=== PATIENT | female | born 1940 | race Caucasian/White ===

== ENCOUNTER 2016-07-03 11:49 | Emergency (ER) | payer OTHER, MEDICAID ==
[~2016-07-03] VITALS: Wt 51.7 kg
[~2016-07-03 11:49] MED LIST: 'zithromax250 MG PO; ACYCLOVIR800 MG PO; ALENDRONATE SOD70 MG PO; AMBIEN5 MG; AMLODIPINE10 MG PO; AMOXICILLIN500 MG; ASPIR LOW81 MG PO; ASPIRIN81 M1 PO; ATROVENT IH; CALCITRIOL0.25 MCG PO; CALCIUM ACETAT667 MG PO; CARAFATE1 G1 PO; CARDIZEM CD240 MG PO; CARDIZEM LA240 MG PO; CARDIZEM120 MG PO; CIPRO250 MG PO; CIPROFLOXACIN250 MG PO; CITALOPRAM HYDR20 MG PO; CYMBALTA30 M1 PO; CYMBALTA30 MG PO; Carafate1 GM PO; Coumadin3 MG PO; DELTASONE20 MG PO; DILTIA XT180 MG PO; DILTIAZEM CD180 MG PO; DILTIAZEM CD240 MG PO; DILTIAZEM HCL180 MG PO; DIOVAN160 MG PO; DUONEB 3 MG/3 ML3 M1 NEB; DURAMORPH1 MG/ML PO; ELIQUIS2.5 M1 PO; FLUTICASON0.05 MG/AC NAS; HYDROCODONE BIT1 T11 PO; IMDUR SA60 M1 PO; IMODIUM2 MG PO; LEVOTHYROXIN0.075 MG PO; LIPITOR; LISINOPRIL10 MG PO; LISINOPRIL30 MG PO; LOPRESSOR25 MG PO; LOPRESSOR50 MG PO; METOPROLOL SUCC25 M2 PO; METOPROLOL25 MG PO; MICRO K10 MEQ PO; MORPHINE PO; MORPHINE S20 MG/5 ML PO; MS CONTIN30 MG PO; MUCINEX600 MG PO; NASONEX0.05 MG/AC NAS; NEPHRO-VITE RX1 TAB PO; NEPHRO-VITE VIT1 TAB PO; NEPHROCAPS1 SGL PO; NORVASC10 MG PO; PHOS LO667 MG PO; PHOSLO667 M1 PO; PRAVACHOL40 MG; PRAVACHOL40 MG PO; PREDNICOT20 MG PO; PREDNISONE10 MG PO; PREDNISONE5 MG PO; PROTONIX40 MG PO; SENSIPAR30 MG PO; SENSIPAR60 MG PO; SODIUM BICARBO650 MG PO; SYNTHROID,LEVO75 MCG PO; TOPROL XL25 MG PO; TOPROL XL50 M1 PO; TUMS 500500 MG PO; TUMS ULTRA1000 MG PO; VALTREX1 GM PO; VANCOMYCIN; VENTOLIN 02.5 MG/3 M INH; VICODIN 5/500 505 MG PO; VICODIN PO; VICODIN1 TAB PO; VITAMIN D2; VITAMIN D5000 IU PO; VITAMIN D50000 I2 PO; VITAMIN D50000 I3 PO; XANAX0.25 MG; ZOFRAN4 MG PO; ZOSYN 2/0.252.25 GM IV; Zofran4 MG PO
[2016-07-03 12:26] LABS: BASO % 0.7 % (0.0-1.0); EOS # 0.1 10*3/uL (0.0-0.4); EOS % 3.1 % (1.0-4.0); HEMATOCRIT 30.3 % (37.0-47.0); LYMPH # 0.9 10*3/uL (1.3-4.4); MEAN CELL VOLUME 103.1 fl (81.0-99.0); MEAN PLATELET VOLUME 10.9 fl (9.6-12.3); MONO # 0.4 10*3/uL (0.1-1.0); MONO % 9.5 % (3.0-9.0); NEUT # 2.7 10*3/uL (2.3-7.9); NEUT % 64.5 % (47.0-73.0); PLATELET COUNT AUTOMATED 188 10*3/uL (130-400); RED BLOOD COUNT 2.94 10*6/uL (4.10-5.10); WHITE BLOOD COUNT 4.2 10*3/uL (4.8-10.8)
[2016-07-03 12:41] LABS: PROTHROMBIN TIME 10.3 SECONDS (9.0-12.4)
[2016-07-03 12:52] LABS: MAGNESIUM 1.8 mg/dL (1.5-2.1); THYROID STIM HORMONE (HS) 2.66 uIU/ml (0.358-4.75)
[2016-07-03 13:24] VITALS: BP 149/66
[2016-08-18] MEDS ORDERED: [UNRECOGNIZED DRUG - OTHER] PO (15:37)
[2016-08-18] MEDS ORDERED: ZESTRIL,PRINIVIL5 MG PO (15:38)
[2016-08-18] MEDS ORDERED: IMDUR SA30 MG PO (15:40)
[2016-08-18] MEDS ORDERED: ELIQUIS2.5 M1 PO (15:42)
[2016-08-18] MEDS ORDERED: METOPROLOL SUCC25 M2 PO (15:44)
[2016-08-22] MEDS ORDERED: IMDUR SA30 MG PO (13:03)
[2016-08-22] MEDS ORDERED: ASPIR LOW81 MG PO (15:03)
== END 2016-07-03 14:21 | disposition short-term general hospital (02) ==
LOC: ED 11:49
PROVIDERS: Emergency Medicine
DX: I20.0 Unstable angina (principal); I95.3 Hypotension of hemodialysis; J44.9 Chronic obstructive pulmonary disease, unspecified; I25.2 Old myocardial infarction; D64.9 Anemia, unspecified; E03.9 Hypothyroidism, unspecified; I48.0 Paroxysmal atrial fibrillation; I12.0 Hypertensive chronic kidney disease with stage 5 chronic kidney disease or end stage renal disease; N18.6 End stage renal disease; Z88.0 Allergy status to penicillin; Z88.8 Allergy status to other drugs, medicaments and biological substances; Z88.6 Allergy status to analgesic agent; Z79.899 Other long term (current) drug therapy

== ENCOUNTER 2016-10-02 22:22 | Inpatient (IN) | payer OTHER, MEDICAID ==
[~2016-10-02] VITALS: Ht 137.2 cm; Wt 53.3 kg
[~2016-10-02 22:22] MED LIST changes: +IMDUR SA30 MG PO; +ZESTRIL,PRINIVIL5 MG PO; +[UNRECOGNIZED DRUG - OTHER] PO
[2016-10-02 22:27] VITALS: BP 166/70
[2016-10-02 23:09] LABS: BASO % 0.6 % (0.0-1.0); EOS # 0.3 10*3/uL (0.0-0.4); EOS % 4.5 % (1.0-4.0); HEMOGLOBIN 7.5 g/dl (12.0-16.0); LYMPH % 14.5 % (27.0-41.0); MEAN CORPUSCULAR HGB 32.2 pg (27.0-31.0); MEAN CORPUSCULAR HGB CONC 31.3 g/dl (33.0-37.0); MEAN PLATELET VOLUME 10.3 fl (9.6-12.3); MONO # 0.7 10*3/uL (0.1-1.0); MONO % 10.6 % (3.0-9.0); NEUT # 4.7 10*3/uL (2.3-7.9); NEUT % 69.5 % (47.0-73.0); PLATELET COUNT AUTOMATED 207 10*3/uL (130-400); RED BLOOD COUNT 2.33 10*6/uL (4.10-5.10); WHITE BLOOD COUNT 6.7 10*3/uL (4.8-10.8)
[2016-10-02 23:15] VITALS: BP 132/76
[2016-10-02 23:20] LABS: PROTHROMBIN TIME 10.2 SECONDS (9.0-12.4)
[2016-10-02 23:25] LABS: ALBUMIN 3.4 gm/dl (3.1-4.5); BILIRUBIN, TOTAL 0.3 mg/dl (0.2-1.0); MAGNESIUM 1.9 mg/dL (1.5-2.1); POTASSIUM 3.7 mmol/L (3.5-5.1); TOTAL PROTEIN 6.8 gm/dL (6.4-8.2)
[2016-10-02 23:26] LABS: CKMB 3.5 ng/ml (0.5-3.6); TROPONIN I 0.035 ng/ml (<0.045)
[2016-10-03 00:24] VITALS: BP 140/88
[2016-10-03 01:30] VITALS: BP 113/45; BP 114/55
[2016-10-03 07:34] LABS: BASO % 0.6 % (0.0-1.0); EOS # 0.2 10*3/uL (0.0-0.4); EOS % 4.7 % (1.0-4.0); HEMATOCRIT 22.3 % (37.0-47.0); LYMPH # 1.5 10*3/uL (1.3-4.4); LYMPH % 29.9 % (27.0-41.0); MEAN CELL VOLUME 102.3 fl (81.0-99.0); MEAN CORPUSCULAR HGB 32.1 pg (27.0-31.0); MEAN CORPUSCULAR HGB CONC 31.4 g/dl (33.0-37.0); MEAN PLATELET VOLUME 10.9 fl (9.6-12.3); MONO # 0.5 10*3/uL (0.1-1.0); MONO % 10.5 % (3.0-9.0); NEUT # 2.6 10*3/uL (2.3-7.9); NEUT % 54.1 % (47.0-73.0); PLATELET COUNT AUTOMATED 198 10*3/uL (130-400); RED BLOOD COUNT 2.18 10*6/uL (4.10-5.10); WHITE BLOOD COUNT 4.9 10*3/uL (4.8-10.8)
[2016-10-03 07:46] LABS: CKMB 3.3 ng/ml (0.5-3.6); TROPONIN I 0.039 ng/ml (<0.045)
[2016-10-03 08:00] VITALS: BP 133/49
[2016-10-03 08:00] LABS: ALBUMIN 3.1 gm/dl (3.1-4.5); BILIRUBIN, TOTAL 0.4 mg/dl (0.2-1.0); PHOSPHOROUS 3.8 mg/dL (2.5-4.9); POTASSIUM 3.9 mmol/L (3.5-5.1)
[2016-10-03 08:06] LABS: FREE T4 1.05 ng/dl (0.76-1.46); THYROID STIM HORMONE (HS) 2.75 uIU/ml (0.358-4.75)
[2016-10-03 08:11] LABS: PROTHROMBIN TIME 10.5 SECONDS (9.0-12.4)
[2016-10-03 11:46] VITALS: BP 122/54
[2016-10-03 12:00] VITALS: BP 127/42
[2016-10-03 12:27] LABS: CKMB 3.5 ng/ml (0.5-3.6); TROPONIN I 0.03 ng/ml (<0.045)
[2016-10-03] MEDS ORDERED: LISINOPRIL2.5 MG PO (13:16)
== END 2016-10-03 15:05 | disposition home or self-care (01) | DRG 880 ==
LOC: ED 22:22 → EDHOLD 23:54 → 5E 23:54
PROVIDERS: Family Medicine; Hospitalist
DX: F41.9 Anxiety disorder, unspecified (principal); E43 Unspecified severe protein-calorie malnutrition; I12.0 Hypertensive chronic kidney disease with stage 5 chronic kidney disease or end stage renal disease; I48.0 Paroxysmal atrial fibrillation; J44.9 Chronic obstructive pulmonary disease, unspecified; N18.6 End stage renal disease; D62 Acute posthemorrhagic anemia; D63.8 Anemia in other chronic diseases classified elsewhere; I25.2 Old myocardial infarction; F17.200 Nicotine dependence, unspecified, uncomplicated; Z82.49 Family history of ischemic heart disease and other diseases of the circulatory system; Z88.8 Allergy status to other drugs, medicaments and biological substances; Z95.5 Presence of coronary angioplasty implant and graft; Z88.0 Allergy status to penicillin; Z88.6 Allergy status to analgesic agent; Z91.048 Other nonmedicinal substance allergy status; Z99.2 Dependence on renal dialysis; Z79.82 Long term (current) use of aspirin; Z79.899 Other long term (current) drug therapy; Z79.01 Long term (current) use of anticoagulants; Z68.28 Body mass index [BMI] 28.0-28.9, adult

== ENCOUNTER 2016-10-11 00:29 | Inpatient (IN) | payer OTHER, MEDICAID ==
[2016-10-11] VITALS (10 sets, daily range): BP systolic 113–179; BP diastolic 41–80
[~2016-10-11] VITALS: Ht 142.2 cm; Wt 54.4 kg
--- NOTE | ~2016-10-11 | EKG ---
[place], [place] ELECTROCARDIOGRAM REPORT [id number] UN[facility] #: [id number] ROOM: 408 DOCTOR: MADAN SHABAZZ MD BIRTHDATE: [birth year] DOS: 10/11/2016 STUDY DONE: 10/11/2016 at 0055 in the morning. Sinus rhythm at a rate of 81. Normal EKG. MADAN SHABAZZ MD CM:EKGRPT:ELECTROCARDIOGRAM REPORT 1101 [id number] MADAN SHABAZZ MD
--- NOTE | ~2016-10-11 | EKG ---
[place], [place] ELECTROCARDIOGRAM REPORT [id number] UN[facility] #: [id number] ROOM: 408 DOCTOR: MADAN SHABAZZ MD BIRTHDATE: [birth year] DOS: 10/11/2016 TIME: 07:20 a.m. FINDINGS: 1. Sinus rhythm with rate of 77. 2. Mild first degree AV block. 3. Otherwise normal electrocardiogram. MADAN SHABAZZ MD CM:EKGRPT:ELECTROCARDIOGRAM REPORT [id number] MADAN SHABAZZ MD
--- NOTE | ~2016-10-11 | CON ---
[place], [place] REPORT OF CONSULTATION NAME: STEWART VELARDE [facility] #: [id number] UNIT #: [id number] ROOM: 408 DOCTOR: MADAN SHABAZZ MD BIRTHDATE: [birth year] DOS: 10/11/2016 CARDIOLOGY CONSULTATION REASON FOR CONSULTATION: Hypertensive emergency and elevated troponin level. HISTORY OF PRESENT ILLNESS: The patient is a 76-year-old woman who does have a history of polycystic kidney disease, which resulted in end-stage renal failure. She has been on dialysis for 6 years. She also has a history of coronary artery disease and states that she did have catheterization and stenting in [place] over 10 years ago. Those records are not currently available to us. The patient states that she has had a cardiac catheterization at the [facility] in the last year or so. She was told that she had no more than a 50% blockage and that no revascularization was necessary. The last stress test that I have on record was done on August 19, 2013, and showed normal left ventricular size, wall motion and function with ejection fraction of 72%. Perfusion was normal. The study was felt to be low risk. The patient dialyzes 3 days a week on Tuesdays, and Saturdays. She states that for the last week, she has noticed increased swelling in her feet, especially on the right. She had dialysis 2 days ago and her swelling improved, but was still present. Yesterday, she noticed a pressure sensation in her head and could hear her heartbeat in her ears. Family members checked her blood pressure and found that it was over 200 systolic. She was brought to the Emergency Room where her blood pressure was over 220. She was therefore admitted to the hospital. Her initial troponin level was elevated at 0.069 and Cardiology was asked to help explain the elevation in her troponin. I have reviewed her previous troponin measurements and utilizing the same assay at [facility], her troponin levels have been elevated intermittently for at least 9 years. Last year, her troponin level was over 0.13. The patient denies any chest pain. She denies lightheadedness or syncope. She denies any increased dyspnea. She does have peripheral edema as noted above. PAST HISTORY: Includes, 1. Coronary artery disease. The patient reports that she had a myocardial infarction many years ago and was treated in [place] with angioplasty and stenting, details of that portion of her history are not currently available. 2. Polycystic kidney disease. 3. End-stage renal disease on dialysis via a right forearm AV fistula for the last 6 years. 4. Hypertension. 5. Degenerative joint disease. 6. Paroxysmal atrial fibrillation. 7. History of depression. 8. History of hysterectomy, cholecystectomy, and appendectomy. 9. History of hypothyroidism. 10. Pharmacologic myocardial perfusion study on August 19, 2013, showed an [place], [place] REPORT OF CONSULTATION NAME: STEWART VELARDE UNIT #: [id number] ROOM: [facility] DOCTOR: MADAN SHABAZZ MD BIRTHDATE: [birth year] ejection fraction of 72% with no evidence for ischemia, study was felt to be low risk. 11. Echocardiogram on June 07, showed an ejection fraction of 55% with stage 2 diastolic relaxation abnormalities. There were no wall motion abnormalities seen. She did have mild to moderate mitral insufficiency with moderately elevated right ventricular systolic pressures between 55 and 60 mmHg. MEDICATIONS PRIOR TO ADMISSION: Aspirin 81 mg daily, calcium acetate 667 mg b.i.d., Sensipar 30 mg daily, isosorbide mononitrate 30 mg one-half tablet daily, levothyroxine 75 mcg daily, lisinopril 5 mg daily, metoprolol succinate 25 mg twice a day, pravastatin 40 mg at bedtime and vitamin B complex (Nephro-Nataliya) 1 daily. ALLERGIES: The patient lists allergies to IRON, PENICILLIN, TAPE, BENZOCAINE MEPERIDINE, MORPHINE AND NALBUPHINE. FAMILY HISTORY: Negative for early coronary disease. REVIEW OF SYSTEMS: The patient denies diplopia or loss of vision. She denies lightheadedness or syncope. She denies orthopnea or PND. She has not had any fevers, chills, sweats or recent weight change. She has had swelling of her lower extremities for the last week, especially on the right. She denies any focal weakness, but is generally weak. She denies any new skin rashes. She has chronic dyspnea, which has not changed much lately. She denies any recent bleeding or blood in her urine or stools. She denies any new skin rashes. Remainder of the review of systems is negative except as noted above. SOCIAL HISTORY: The patient lives at home with family. She is a . She does not smoke, but lives with smokers. PHYSICAL EXAMINATION: GENERAL: The patient is a slender white female who is awake, alert and oriented. VITAL SIGNS: Pulse is 72 and regular, blood pressure is 138/60. She is afebrile. She weighs 54.0 kilograms with a body mass index of 26.7. HEENT: Normocephalic, atraumatic. Extraocular muscles are intact. Sclerae are clear. Pupils are equal, round and react to light. The oral mucosa is moist. Tongue is midline. NECK: Supple. She has no jugular distention. Carotids are full and I heard no bruits. She had no neck or supraclavicular masses and no thyromegaly. LUNGS: Respirations are unlabored. Her chest is clear to auscultation and percussion. She has no presacral edema or chest wall tenderness. HEART: Has a regular rhythm. She has a fourth heart sound, but no third heart sound. There were no murmurs or rubs. The PMI was not displaced. She had no precordial heave, lift or thrill. ABDOMEN: Soft and normally active without masses, organomegaly or bruits. EXTREMITIES: Showed no edema on the left. She does have mild swelling on the right leg. LABORATORY DATA: I reviewed her electrocardiogram, which showed sinus rhythm [place], [place] REPORT OF CONSULTATION [id number] UNIT #: [id number] ROOM: 408 DOCTOR: MDAAN SHABAZZ MD BIRTHDATE: [address] or T-wave changes and is essentially a normal electrocardiogram. Chest x-ray shows cardiomegaly and obstructive lung disease. IMPRESSIONS: 1. Acute elevation of chronic hypertension with symptoms. The patient's symptoms have resolved and her blood pressure has improved since admission. The etiology for the change is not clear; however, she does note that she has been holding more water lately. 2. Paroxysmal atrial fibrillation with rapid ventricular response. The patient currently is in sinus rhythm. 3. History of coronary artery disease with previous myocardial infarction and stenting per the patient's history. The patient states that her last catheterization was done at the [facility] about a year ago and at that time, no percutaneous intervention was indicated. 4. Polycystic kidney disease. 5. End-stage renal disease, on dialysis for the last 6 years. 6. History of asthma and obstructive lung disease. 7. History of hypothyroidism, on replacement. 8. History of recurrent gastrointestinal bleeding. PLAN: We will increase her beta surinder and continue her other antihypertensives in order to try to prevent another episode of blood pressure elevation. The patient is not on anticoagulation for her atrial fibrillation because she does have end-stage renal disease, on dialysis. It is unusual for patients in this population to have cardioembolic phenomenon. We will request the results of her most recent catheterization for our local records here. For now, I would continue to follow her clinically. I do not think that any other advanced cardiac evaluation would change our management of her. I thank the hospitalist group for asking our advice regarding her care. MADAN SHABAZZ MD CM:CONSTR:REPORT OF CONSULTATION 1104 10/11/162048 interface
[~2016-10-11 00:29] MED LIST changes: +LISINOPRIL2.5 MG PO
[2016-10-11] MEDS ORDERED: LISINOPRIL5 MG PO (00:36)
[2016-10-11 00:53] LABS: BASO % 0.4 % (0.0-1.0); EOS # 0.3 10*3/uL (0.0-0.4); EOS % 4.1 % (1.0-4.0); HEMATOCRIT 26.8 % (37.0-47.0); HEMOGLOBIN 8.3 g/dl (12.0-16.0); LYMPH # 1.2 10*3/uL (1.3-4.4); LYMPH % 17.6 % (27.0-41.0); MEAN CELL VOLUME 104.7 fl (81.0-99.0); MEAN CORPUSCULAR HGB 32.4 pg (27.0-31.0); MEAN PLATELET VOLUME 10.7 fl (9.6-12.3); MONO # 0.7 10*3/uL (0.1-1.0); MONO % 10.3 % (3.0-9.0); NEUT # 4.6 10*3/uL (2.3-7.9); NEUT % 67.3 % (47.0-73.0); PLATELET COUNT AUTOMATED 240 10*3/uL (130-400); RED BLOOD COUNT 2.56 10*6/uL (4.10-5.10); RED CELL DISTRI WIDTH 16.5 % (0-14.5); WHITE BLOOD COUNT 6.8 10*3/uL (4.8-10.8)
[2016-10-11 01:03] LABS: PROTHROMBIN TIME 10.5 SECONDS (9.0-12.4)
[2016-10-11 01:10] LABS: ALBUMIN 3.6 gm/dl (3.1-4.5); BILIRUBIN, TOTAL 0.3 mg/dl (0.2-1.0); MAGNESIUM 2.2 mg/dL (1.5-2.1); POTASSIUM 4.1 mmol/L (3.5-5.1)
[2016-10-11 01:12] LABS: TROPONIN I 0.048 ng/ml (<0.045)
[2016-10-11 01:17] LABS: THYROID STIM HORMONE (HS) 2.16 uIU/ml (0.358-4.75)
[2016-10-11 06:01] LABS: BASO % 0.3 % (0.0-1.0); EOS # 0.3 10*3/uL (0.0-0.4); EOS % 5.3 % (1.0-4.0); HEMATOCRIT 24.4 % (37.0-47.0); HEMOGLOBIN 7.4 g/dl (12.0-16.0); LYMPH # 1.5 10*3/uL (1.3-4.4); LYMPH % 24.5 % (27.0-41.0); MEAN CELL VOLUME 106.6 fl (81.0-99.0); MEAN CORPUSCULAR HGB 32.3 pg (27.0-31.0); MEAN CORPUSCULAR HGB CONC 30.3 g/dl (33.0-37.0); MEAN PLATELET VOLUME 10.6 fl (9.6-12.3); MONO # 0.7 10*3/uL (0.1-1.0); MONO % 11.5 % (3.0-9.0); NEUT # 3.5 10*3/uL (2.3-7.9); NEUT % 58.2 % (47.0-73.0); PLATELET COUNT AUTOMATED 224 10*3/uL (130-400); RED BLOOD COUNT 2.29 10*6/uL (4.10-5.10); RED CELL DISTRI WIDTH 16.3 % (0-14.5)
[2016-10-11 06:09] LABS: ALBUMIN 3.3 gm/dl (3.1-4.5); BILIRUBIN, TOTAL 0.3 mg/dl (0.2-1.0); MAGNESIUM 2.2 mg/dL (1.5-2.1); POTASSIUM 3.9 mmol/L (3.5-5.1)
[2016-10-11 06:16] LABS: CKMB 3.9 ng/ml (0.5-3.6); THYROID STIM HORMONE (HS) 1.4 uIU/ml (0.358-4.75)
[2016-10-11 06:17] LABS: TROPONIN I 0.069 ng/ml (<0.045)
[2016-10-11 06:32] LABS: PROTHROMBIN TIME 10.7 SECONDS (9.0-12.4)
[2016-10-11 12:28] LABS: CKMB 3.8 ng/ml (0.5-3.6)
[2016-10-11 12:29] LABS: TROPONIN I 0.063 ng/ml (<0.045)
[2016-10-12] VITALS: BP 137/57
[2016-10-12 06:32] LABS: BILIRUBIN NEGATIVE (NEGATIVE); BLOOD TRACE-INTACT (NEGATIVE); CLARITY SL CLOUDY (CLEAR); COLOR YELLOW (YELLOW); GLUCOSE TRACE (NEGATIVE); KETONE NEGATIVE (NEGATIVE); LEUKO ESTERASE 1+ (NEGATIVE); NITRITE NEGATIVE (NEGATIVE); PROTEIN 1+ (NEGATIVE); UROBILINOGEN 0.2 E.U./dl (0.2-1.0)
[2016-10-12 06:41] LABS: BACTERIA TRACE; URINE REFLEX COMMENT YES (NO)
[2016-10-12 07:08] LABS: BASO % 0.4 % (0.0-1.0); EOS # 0.3 10*3/uL (0.0-0.4); EOS % 7.1 % (1.0-4.0); HEMATOCRIT 25.9 % (37.0-47.0); HEMOGLOBIN 7.8 g/dl (12.0-16.0); LYMPH % 20.2 % (27.0-41.0); MEAN CELL VOLUME 105.7 fl (81.0-99.0); MEAN CORPUSCULAR HGB 31.8 pg (27.0-31.0); MEAN CORPUSCULAR HGB CONC 30.1 g/dl (33.0-37.0); MEAN PLATELET VOLUME 9.5 fl (9.6-12.3); MONO # 0.6 10*3/uL (0.1-1.0); MONO % 12.6 % (3.0-9.0); NEUT # 2.8 10*3/uL (2.3-7.9); NEUT % 59.5 % (47.0-73.0); PLATELET COUNT AUTOMATED 216 10*3/uL (130-400); RED BLOOD COUNT 2.45 10*6/uL (4.10-5.10); RED CELL DISTRI WIDTH 16.2 % (0-14.5); WHITE BLOOD COUNT 4.8 10*3/uL (4.8-10.8)
[2016-10-12 08:00] VITALS: BP 128/45
[2016-10-12] MEDS ORDERED: TOPROL XL50 M1 PO (09:47)
[2016-10-12] MEDS ORDERED: RENAGEL800 M1 PO (09:47)
[2016-10-12] MEDS ORDERED: LISINOPRIL10 M1 PO (09:47)
[2016-10-12 12:00] VITALS: BP 150/55
== END 2016-10-12 12:51 | disposition home or self-care (01) | DRG 304 ==
LOC: ED 00:29 → 4E 03:15
PROVIDERS: Emergency Medicine Emergency Medical Services; Internal Medicine Hospice and Palliative Medicine; Student in an Organized Health Care Education/Training Program
PROC: 5A1D00Z (ICD-10-PCS; principal; 2016-10-11)
DX: I16.0 Hypertensive urgency (principal); N18.6 End stage renal disease; E87.0 Hyperosmolality and hypernatremia; I48.0 Paroxysmal atrial fibrillation; D53.9 Nutritional anemia, unspecified; F41.9 Anxiety disorder, unspecified; I12.0 Hypertensive chronic kidney disease with stage 5 chronic kidney disease or end stage renal disease; I25.10 Atherosclerotic heart disease of native coronary artery without angina pectoris; Z96.649 Presence of unspecified artificial hip joint; F17.220 Nicotine dependence, chewing tobacco, uncomplicated; J44.9 Chronic obstructive pulmonary disease, unspecified; E03.9 Hypothyroidism, unspecified; D72.810 Lymphocytopenia; E83.41 Hypermagnesemia; M19.90 Unspecified osteoarthritis, unspecified site; Z88.6 Allergy status to analgesic agent; Z99.2 Dependence on renal dialysis; Z88.8 Allergy status to other drugs, medicaments and biological substances; Z91.09 Other allergy status, other than to drugs and biological substances; Z88.0 Allergy status to penicillin; Z91.048 Other nonmedicinal substance allergy status; I25.2 Old myocardial infarction; Z87.440 Personal history of urinary (tract) infections; Z82.49 Family history of ischemic heart disease and other diseases of the circulatory system; Z83.3 Family history of diabetes mellitus; Z82.5 Family history of asthma and other chronic lower respiratory diseases; Z84.89 Family history of other specified conditions; Z79.82 Long term (current) use of aspirin; Z79.899 Other long term (current) drug therapy; Z90.710 Acquired absence of both cervix and uterus; Z90.49 Acquired absence of other specified parts of digestive tract

== ENCOUNTER 2016-11-28 19:23 | Inpatient (IN) | payer OTHER, MEDICAID ==
[~2016-11-28] VITALS: Ht 142.2 cm; Wt 55.4 kg
--- NOTE | ~2016-11-28 | O ---
[place], [place] OPERATIVE NOTE [id number] UN[facility] #: [id number] ROOM: 415 DOCTOR: NIA JMAA MD BIRTHDATE: [birth year] DOS: 11/30/2016 INDICATIONS: This is a 76-year-old patient who was presented with chief complaint of severe anemia, hemoglobin of 4, hematocrit of 16, undergoing investigation. PROCEDURE: Today's procedure part of investigation is panendoscopy and colonoscopy. PREMEDICATION: Versed and Diprivan. SCOPE: Olympus forward-viewing colonoscope 10L video. REPORT: After putting the patient in the left lateral position and after application of lubricant to the scope, the scope was introduced; thereafter, under direct visualization, advanced through the length of colon with difficulty that is secondary to tortuosity and presence of diverticulosis. Base of cecum; however explored, dark residual stool in the cecum was identified. Photographed. No active bleeding was seen. The patient was gradually extubated, tolerated the procedure well. IMPRESSION: Diverticulosis, residual black tarry stool in cecum. PLAN AND DISCUSSION: We are going to proceed with panendoscopy. NIA JAMA MD CM:OPRECORD:OPERATIVE NOTE 1532 28 NIA JAMA MD 11/30/161927 interface
--- NOTE | ~2016-11-28 | O ---
[place], [place] OPERATIVE NOTE [facility]: [id number] UNIT #: [id number] ROOM: 415 DOCTOR: WILEY MCCRARY,NIA BIRTHDATE: [birth year] DOS: 11/30/2016 INDICATIONS: The patient with severe anemia, undergoing investigation. PROCEDURE: Today's procedure part of investigation is panendoscopy. PREMEDICATION: Versed and Diprivan. SCOPE: Olympus forward-viewing gastroscope Q10 video. REPORT: After putting the patient in the left lateral position and after application of lubricant to the scope, the scope was introduced; thereafter, under direct visualization, advanced through the length of esophagus without difficulty. Esophagus cervicothoracic within normal limits. Gastric pouch was entered. Gastritis was noticed. Duodenal bulb, second and third part within normal limit. No active bleeding seen. The patient extubated and tolerated the procedure well. IMPRESSION: Gastritis, small hiatal hernia and minimal erosions. PLAN AND DISCUSSION: No biopsy obtained. This patient may have an angiodysplastic lesions of the small bowel, which should be evaluated with pill camera as outpatient. At the present time, I am recommending her blood thinners and aspirins to be put on hold and transfusion to stabilization and clinical reassessment and outpatient pill camera evaluation. Thank you very much indeed. NIA JAMA MD CM:OPRECORD:OPERATIVE NOTE 1532 30 NIA JAMA MD 11/30/161930 interface
--- NOTE | ~2016-11-28 | CON ---
[place], [place] REPORT OF CONSULTATION NAME: STEWART VELARDE [facility] #: [id number] UNIT #: [id number] ROOM: 415 DOCTOR: YANY JAMA MDCOFFEENEZEQUIEL BIRTHDATE: [birth year] DOS: 11/30/2016 GASTROENDOSCOPIC REPORT HISTORY OF PRESENT ILLNESS: The patient has presented with chief complaint of feeling weak, was found to have H and H of 4 and 16. Comprehensive metabolic panel was done, was found to have BUN and creatinine of 64 and 6.8, GFR of 7. CT scan of the abdomen and pelvis was done. No definitive intra-acute abdominal pain, diffuse osseous sclerosis, cardiomegaly, additional chronic changes all were noticed. CBC differential after transfusion H and H improved to 9 and 27. Comprehensive metabolic panel: BUN and creatinine improved to 24 and 4.0. It is still component of renal disease. I have been asked for assessment of the patient regarding possibility of GI bleed definition of source of pathology. PAST MEDICAL HISTORY: Associated with COPD, anemia, hypertension, atrial fibrillation, non-STEMI myocardial infarction, hypothyroidism, renal disease. PAST SURGICAL HISTORY: Hip prosthesis and coronary artery stents. FAMILY HISTORY: Noncontributory. ALLERGIES: REVIEWED, TO PENICILLIN AND DEMEROL AND NUBAIN AND IRON SUPPLEMENTATION. MEDICATIONS: List has been reviewed. The patient has been on aspirin at home, the only medicine. REVIEW OF SYSTEMS: In general, HEENT: Denies double vision, blurred vision. RESPIRATORY: Denies shortness of breath. CARDIOVASCULAR: Denies acute chest pain. DIGESTIVE SYSTEM: No hematemesis, no hematochezia. PHYSICAL EXAMINATION: VITAL SIGNS: Stable. HEENT: Head normocephalic, nontraumatic. Mouth and buccal mucosa benign. NECK: Supple, no thyromegaly. CHEST: Symmetric anatomy, equal expansion. No wheeze, no rhonchi. HEART: Normal sinus rhythm, no gallop, no murmur. ABDOMEN: Soft. No hepato-organomegaly. Bowel sounds present. EXTREMITIES: No cyanosis, no pedal edema. NEUROLOGIC: Alert, oriented to time, place, person. IMPRESSION: Severe anemia, hemoglobin of 4, hematocrit 16 status post multitransfusion. OTHER ADJUNCTIVE DIAGNOSES: As identified above, possibility of peptic ulcer disease, occult malignancy all in concern. Otherwise, as dictated in past medical, surgical history including renal insufficiency. [place], [place] REPORT OF CONSULTATION NAME: STEWART VELARDE UNIT #: [id number] ROOM: [facility] DOCTOR: WILEY MCCRARY,NIA BIRTHDATE: [birth year] PLAN AND DISCUSSION: We are going to organize an EGD and colonoscopy after transfusion and stabilization. Liver function test has been normal. Slight elevation in amylase, lipase, has been on the reports, it was 125 and 676 initially. NIA JAMA MD CM:CONSTR:REPORT OF CONSULTATION 1434 12/01/16 0549 interface
[~2016-11-28 19:23] MED LIST changes: +LISINOPRIL10 M1 PO; +LISINOPRIL5 MG PO; +RENAGEL800 M1 PO
[2016-11-28 19:30] VITALS: BP 144/52
[2016-11-28 20:46] LABS: MEAN CELL VOLUME 107.8 fl (81.0-99.0); MEAN CORPUSCULAR HGB CONC 29.7 g/dl (33.0-37.0); MEAN PLATELET VOLUME 10.2 fl (9.6-12.3); PLATELET COUNT AUTOMATED 226 10*3/uL (130-400); RED BLOOD COUNT 1.53 10*6/uL (4.10-5.10); RED CELL DISTRI WIDTH 17.9 % (0-14.5); WHITE BLOOD COUNT 6.8 10*3/uL (4.8-10.8)
[2016-11-28 20:55] LABS: HEMATOCRIT 16.5 % (37.0-47.0)
[2016-11-28 20:56] LABS: HEMOGLOBIN 4.9 g/dl (12.0-16.0)
[2016-11-28 21:00] LABS: ALBUMIN 2.9 gm/dl (3.1-4.5); ALKALINE PHOSPHATASE 107 U/L (45-117); BILIRUBIN, TOTAL 0.3 mg/dl (0.2-1.0); BUN 64 mg/dl (7-24); C-REACTIVE PROTEIN < 0.29 MG/DL (0-0.3); CARBON DIOXIDE 30 mmol/L (21-32); CHLORIDE 103 mmol/L (98-107); CKMB 3.8 ng/ml (0.5-3.6); CPK 72 U/L (26-192); EST GLOM FILT AFRICAN AMERICAN 7 ml/min; GLUCOSE 96 mg/dL (65-99); LDH 153 U/L (84-246); MAGNESIUM 2.4 mg/dL (1.5-2.1); POTASSIUM 3.7 mmol/L (3.5-5.1); SGOT/AST 24 IU/L (3-35); SGPT/ALT 16 U/L (12-78); SODIUM 142 mmol/L (136-145); TOTAL PROTEIN 5.7 gm/dL (6.4-8.2); TROPONIN I 0.039 ng/ml (<0.045)
[2016-11-28 21:06] LABS: EOSINOPHIL # 0.2 10*3/uL (0-0.4); EOSINOPHILS 3 % (1-4); HYPOCHROMIA SLIGHT; LYMPHOCYTE # 1.8 10*3/uL (1.3-4.4); MONOCYTE # 0.3 10*3/uL (0.1-1.0); NEUTROPHIL # 4.5 10*3/uL (2.3-7.9); NEUTROPHILS 66 % (47-73); PLATELET SUFFICIENCY NORMAL (NORMAL); POLYCHROMASIA SLIGHT; TOTAL CELLS COUNTED 100 #CELLS
[2016-11-28 22:10] LABS: PROTHROMBIN TIME 10.7 SECONDS (9.0-12.4)
[2016-11-28 22:55] VITALS: BP 111/50
[2016-11-28 23:15] VITALS: BP 122/72
[2016-11-28 23:27] VITALS: BP 118/64
[2016-11-28 23:42] VITALS: BP 114/62
[2016-11-29] VITALS (16 sets, daily range): BP systolic 113–173; BP diastolic 55–73
[2016-11-29 01:26] LABS: CKMB 3.9 ng/ml (0.5-3.6); TROPONIN I 0.032 ng/ml (<0.045)
[2016-11-29 03:13] LABS: HEMATOCRIT 22.6 % (37.0-47.0); MEAN CELL VOLUME 95.4 fl (81.0-99.0); MEAN CORPUSCULAR HGB 29.5 pg (27.0-31.0); MEAN PLATELET VOLUME 10.7 fl (9.6-12.3); PLATELET COUNT AUTOMATED 199 10*3/uL (130-400); RED BLOOD COUNT 2.37 10*6/uL (4.10-5.10); RED CELL DISTRI WIDTH 24.4 % (0-14.5); WHITE BLOOD COUNT 11.3 10*3/uL (4.8-10.8)
[2016-11-29 03:26] LABS: MAGNESIUM 2.4 mg/dL (1.5-2.1); POTASSIUM 3.5 mmol/L (3.5-5.1)
[2016-11-29 03:30] LABS: FREE T4 0.95 ng/dl (0.76-1.46); PHOSPHOROUS 4.5 mg/dL (2.5-4.9)
[2016-11-29 03:37] LABS: THYROID STIM HORMONE (HS) 5.99 uIU/ml (0.358-4.75)
[2016-11-29 03:44] LABS: BASOPHIL # 0.1 10*3/uL (0-0.1); BASOPHILS 1 % (0-1); EOSINOPHIL # 0.2 10*3/uL (0-0.4); EOSINOPHILS 2 % (1-4); HYPOCHROMIA SLIGHT; LYMPHOCYTE # 0.2 10*3/uL (1.3-4.4); NEUTROPHIL # 10.7 10*3/uL (2.3-7.9); NEUTROPHILS 95 % (47-73); PLATELET SUFFICIENCY NORMAL (NORMAL); POLYCHROMASIA SLIGHT; TOTAL CELLS COUNTED 100 #CELLS
[2016-11-29 07:01] LABS: FOLIC ACID > 24.00 ng/mL (>5.38)
[2016-11-29 09:17] LABS: BILIRUBIN NEGATIVE (NEGATIVE); BLOOD TRACE-LYSED (NEGATIVE); CLARITY SL CLOUDY (CLEAR); COLOR YELLOW (YELLOW); GLUCOSE TRACE (NEGATIVE); KETONE NEGATIVE (NEGATIVE); LEUKO ESTERASE 3+ (NEGATIVE); NITRITE NEGATIVE (NEGATIVE); PH 7.5 (5.0-9.0); PROTEIN 1+ (NEGATIVE); UROBILINOGEN 0.2 E.U./dl (0.2-1.0)
[2016-11-29 09:38] LABS: BACTERIA 2+; URINE REFLEX COMMENT YES (NO); WBC 41-50 wbc/hpf (0-5)
[2016-11-29 12:20] LABS: HEMOGLOBIN 9.7 g/dl (12.0-16.0)
[2016-11-29 12:21] LABS: HEMATOCRIT 29.1 % (37.0-47.0)
[2016-11-29 12:35] LABS: CKMB 3.1 ng/ml (0.5-3.6); TROPONIN I 0.044 ng/ml (<0.045)
[2016-11-30] VITALS (10 sets, daily range): BP systolic 99–148; BP diastolic 40–76
[2016-11-30 05:39] LABS: ALBUMIN 2.7 gm/dl (3.1-4.5); BILIRUBIN, TOTAL 0.6 mg/dl (0.2-1.0); POTASSIUM 3.3 mmol/L (3.5-5.1); TOTAL PROTEIN 5.3 gm/dL (6.4-8.2)
[2016-11-30 05:55] LABS: BASO % 0.4 % (0.0-1.0); EOS # 0.3 10*3/uL (0.0-0.4); EOS % 4.2 % (1.0-4.0); HEMATOCRIT 27.9 % (37.0-47.0); LYMPH % 14.4 % (27.0-41.0); MEAN CELL VOLUME 92.4 fl (81.0-99.0); MEAN CORPUSCULAR HGB 29.8 pg (27.0-31.0); MEAN CORPUSCULAR HGB CONC 32.3 g/dl (33.0-37.0); MEAN PLATELET VOLUME 10.1 fl (9.6-12.3); MONO % 14.9 % (3.0-9.0); NEUT # 4.5 10*3/uL (2.3-7.9); NEUT % 65.7 % (47.0-73.0); NUCLEATED RED BLOOD CELL 0.3 % (0.0-0.0); PLATELET COUNT AUTOMATED 186 10*3/uL (130-400); RED BLOOD COUNT 3.02 10*6/uL (4.10-5.10); RED CELL DISTRI WIDTH 23.9 % (0-14.5); WHITE BLOOD COUNT 6.9 10*3/uL (4.8-10.8)
[2016-11-30 06:58] LABS: INTERNATIONAL NORM RATIO 1.1 (2.0-3.5); PROTHROMBIN TIME 11.4 SECONDS (9.0-12.4)
[2016-12-01] VITALS: BP 119/52
[2016-12-01 05:49] LABS: BASO % 0.4 % (0.0-1.0); EOS # 0.5 10*3/uL (0.0-0.4); EOS % 8.3 % (1.0-4.0); HEMATOCRIT 26.9 % (37.0-47.0); HEMOGLOBIN 8.5 g/dl (12.0-16.0); LYMPH # 0.9 10*3/uL (1.3-4.4); LYMPH % 15.9 % (27.0-41.0); MEAN CELL VOLUME 95.1 fl (81.0-99.0); MEAN CORPUSCULAR HGB CONC 31.6 g/dl (33.0-37.0); MEAN PLATELET VOLUME 10.4 fl (9.6-12.3); MONO # 0.9 10*3/uL (0.1-1.0); MONO % 16.8 % (3.0-9.0); NEUT # 3.2 10*3/uL (2.3-7.9); NEUT % 58.2 % (47.0-73.0); PLATELET COUNT AUTOMATED 204 10*3/uL (130-400); RED BLOOD COUNT 2.83 10*6/uL (4.10-5.10); RED CELL DISTRI WIDTH 22.9 % (0-14.5); WHITE BLOOD COUNT 5.5 10*3/uL (4.8-10.8)
[2016-12-01 05:54] LABS: POTASSIUM 4.2 mmol/L (3.5-5.1)
[2016-12-01 08:00] VITALS: BP 128/53
[2016-12-01 12:00] VITALS: BP 143/58
[2016-12-01 16:00] VITALS: BP 146/55
[2016-12-01 20:00] VITALS: BP 141/53
[2016-12-02] VITALS: BP 126/48
[2016-12-02 05:54] LABS: BASO % 0.4 % (0.0-1.0); EOS # 0.4 10*3/uL (0.0-0.4); EOS % 5.7 % (1.0-4.0); HEMOGLOBIN 8.2 g/dl (12.0-16.0); LYMPH # 0.9 10*3/uL (1.3-4.4); LYMPH % 13.4 % (27.0-41.0); MEAN CELL VOLUME 96.4 fl (81.0-99.0); MEAN CORPUSCULAR HGB 29.3 pg (27.0-31.0); MEAN CORPUSCULAR HGB CONC 30.4 g/dl (33.0-37.0); MEAN PLATELET VOLUME 10.6 fl (9.6-12.3); MONO # 0.8 10*3/uL (0.1-1.0); MONO % 12.1 % (3.0-9.0); NEUT # 4.6 10*3/uL (2.3-7.9); PLATELET COUNT AUTOMATED 212 10*3/uL (130-400); RED CELL DISTRI WIDTH 21.8 % (0-14.5); WHITE BLOOD COUNT 6.7 10*3/uL (4.8-10.8)
[2016-12-02 08:00] VITALS: BP 145/54
[2016-12-02 12:00] VITALS: BP 129/43
[2016-12-02] MEDS ORDERED: LEVOFLOXACIN500 MG PO (13:48)
== END 2016-12-02 15:07 | disposition home or self-care (01) | DRG 177 ==
LOC: ED 19:23 → ICCU 23:36 → 4E 23:36 → EDHOLD 23:36 → ICCU 11-29 00:08 → 4E 11-30 14:19
PROVIDERS: Hospitalist; Internal Medicine; Physician Assistant; Student in an Organized Health Care Education/Training Program
PROC: 30233N1 Transfusion of Nonautologous Red Blood Cells into Peripheral Vein, Percutaneous Approach (ICD-10-PCS; principal; 2016-11-28)
PROC: 0DJD8ZZ Inspection of Lower Intestinal Tract, Via Natural or Artificial Opening Endoscopic (ICD-10-PCS; 2016-11-30)
PROC: 0DJ08ZZ Inspection of Upper Intestinal Tract, Via Natural or Artificial Opening Endoscopic (ICD-10-PCS; 2016-11-30)
DX: J15.6 Pneumonia due to other Gram-negative bacteria (principal); E43 Unspecified severe protein-calorie malnutrition; K92.2 Gastrointestinal hemorrhage, unspecified; N18.6 End stage renal disease; I48.0 Paroxysmal atrial fibrillation; E83.41 Hypermagnesemia; D50.0 Iron deficiency anemia secondary to blood loss (chronic); D53.9 Nutritional anemia, unspecified; E03.9 Hypothyroidism, unspecified; W18.30XA Fall on same level, unspecified, initial encounter; Z96.649 Presence of unspecified artificial hip joint; E87.6 Hypokalemia; D63.1 Anemia in chronic kidney disease; K29.70 Gastritis, unspecified, without bleeding; K44.9 Diaphragmatic hernia without obstruction or gangrene; K25.9 Gastric ulcer, unspecified as acute or chronic, without hemorrhage or perforation; K57.90 Diverticulosis of intestine, part unspecified, without perforation or abscess without bleeding; F17.200 Nicotine dependence, unspecified, uncomplicated; Z99.2 Dependence on renal dialysis; I25.2 Old myocardial infarction; Z95.5 Presence of coronary angioplasty implant and graft; Z82.49 Family history of ischemic heart disease and other diseases of the circulatory system; Z88.4 Allergy status to anesthetic agent; Z91.030 Bee allergy status; Z88.0 Allergy status to penicillin; Z88.6 Allergy status to analgesic agent; Z88.8 Allergy status to other drugs, medicaments and biological substances; Z91.048 Other nonmedicinal substance allergy status; Z79.82 Long term (current) use of aspirin; Z79.899 Other long term (current) drug therapy; Y93.89 Activity, other specified; Y92.89 Other specified places as the place of occurrence of the external cause; Y99.8 Other external cause status; Z68.26 Body mass index [BMI] 26.0-26.9, adult; K31.819 Angiodysplasia of stomach and duodenum without bleeding

== ENCOUNTER 2016-12-06 14:16 | Inpatient (IN) | payer OTHER, MEDICAID ==
[2016-12-06] VITALS (13 sets, daily range): BP systolic 76–140; BP diastolic 40–68
[~2016-12-06] VITALS: Ht 142.2 cm; Wt 58.3 kg
--- NOTE | ~2016-12-06 | EKG ---
[place], [place] ELECTROCARDIOGRAM REPORT NAME: STEWART VELARDE UNIT #: [id number] ROOM: [facility] DOCTOR: OSWALD GREENBERG MD BIRTHDATE: [birth year] DOS: 12/06/2016 TIME: 1429 Atrial fibrillation, rapid ventricular response, poor R-wave progression in the anterior leads, ST depression in the anterolateral leads, suggestion of myocardial ischemia. OSWALD GREENBERG MD CM:EKGRPT:ELECTROCARDIOGRAM REPORT 1521 1835 OSWALD GREENBERG MD
--- NOTE | ~2016-12-06 | PR ---
[place], [place] PROGRESS NOTE NAME: STEWART VELARDE [facility] #: [id number] UNIT #: [id number] ROOM: 504 DOCTOR: BENSON MCCRARY,RONDA Farrell BIRTHDATE: [birth year] DOS: 12/09/2016 SUBJECTIVE: The patient was seen and examined. She is awake and alert. She denies shortness of breath, nausea or vomiting. She appears to be doing well. PHYSICAL EXAMINATION: VITAL SIGNS: Temperature 98.3, pulse 70, respiratory rate 18, blood pressure 120/56. HEENT: Shows no JVD. LUNGS: Diminished breath sounds. No wheeze. HEART: Normal S1, S2. No rub, thrill or gallop. ABDOMEN: Soft, nontender. There is no organomegaly. EXTREMITIES: Had decreased edema. SKIN: Showed no rash. LABORATORY DATA: Hemoglobin 7.1, white count of 4.4, platelets of 155. Sodium 146, potassium 4.8, carbon dioxide 27, BUN 63, creatinine ____, calcium 8.4, phosphorus 6.9. The chemistry was noted from yesterday before dialysis. IMPRESSION: 1. End-stage renal disease, on hemodialysis Saturday, and Saturday. The patient completed dialysis yesterday. Her next treatment will be on Saturday. 2. Anemia of GI bleed. Continue to follow H and H. Transfuse as needed. Epogen with dialysis. 3. Hyperphosphatemia. Continue phosphorus binders. 4. Tertiary hyperparathyroidism. Continue Sensipar. 5. COPD. Continue supportive care. RONDA KNOWLES MD CM:PNTRANS 1439 0105 RONDA KNOWLES MD 12/10/16 0104 interface
--- NOTE | ~2016-12-06 | CON ---
[place], [place] REPORT OF CONSULTATION NAME: STEWART VELARDE [facility] #: [id number] UNIT #: [id number] ROOM: 504 DOCTOR: MADAN SHABAZZ MD BIRTHDATE: [birth year] DOS: 12/07/2016 REASON FOR CONSULTATION: Chest pain, elevated troponin. HISTORY OF PRESENT ILLNESS: This is one of multiple admissions to the hospital for manuel who is a 76-year-old woman with a history of polycystic kidney and end-stage renal disease. She has been on dialysis for about 6 years. She does have a history of coronary artery disease and states that she had a catheterization and stent placement at a hospital in [place] over 10 years ago. Those records are not currently available to us. The patient was hospitalized briefly in mid 09/2016 when she presented with a hypertensive urgency. She did have an elevation in troponin at that time. She gave a history that she had been evaluated at the [facility] within the last year or so and she had undergone cardiac catheterization which was reportedly satisfactory. She states that no percutaneous intervention was indicated. We requested those records, but she was discharged from the hospital before any outside records were received or reviewed. Since then, she has presented to the hospital with anemia. She has been evaluated by Dr. Aguilera who has done a colonoscopy and an upper endoscopy. The procedures were done on 11/30/2016. The patient was found to have gastritis with a small hiatal hernia and minimal erosions. Colonoscopy was reportedly unremarkable. She was treated for gastritis and consideration was made for doing a pill endoscopy since no active source of bleeding was found. The patient does dialyze 3 days a week on Tuesdays, and Saturdays. Yesterday, while at dialysis, she noted that she was feeling weak and she was found to be hypotensive. She was sent to the Emergency Room where her blood pressure was 76/40 and her hemoglobin was 5.5. She was transfused and her current hemoglobin is 8.4. She feels considerably better now. Upon admission, she did complain of a burning pain in her left anterior chest and her troponin bruce from 0.034-0.608. Her symptoms resolved and she felt much better after she received the transfusion. We were asked to see her to evaluate her further. PAST MEDICAL HISTORY: Includes: 1. Coronary artery disease. The patient reports that she had a myocardial infarction many years ago that was evaluated at a hospital in [place] with angioplasty and stenting. Details of that portion of her history are not currently available. 2. Polycystic kidney disease. 3. End-stage renal disease. The patient has been on dialysis via a right forearm AV fistula for at least 6 years. 4. Essential hypertension. 5. Degenerative joint disease. 6. Paroxysmal atrial fibrillation. The patient was in atrial fibrillation on admission, but currently she is back in sinus rhythm as of this dictation. 7. History of depression. 8. History of hysterectomy, cholecystectomy, and appendectomy. 9. History of hypothyroidism. 10. Pharmacologic stress test 08/19/2013, 72% ejection fraction, no ischemia, [place], [place] REPORT OF CONSULTATION NAME: STEWART VELARDE UNIT #: [id number] ROOM: [facility] DOCTOR: MADAN SHABAZZ MD BIRTHDATE: [birth year] low risk exam. 11. Echocardiogram 09/28/2015, a technically difficult study. Ejection fraction was felt to be normal. 12. Cardiac catheterization sometime in 2015 or early 2016 at the [facility]. Reports requested. MEDICATIONS PRIOR TO ADMISSION: Aspirin 81 mg daily, Sensipar 30 mg daily, levothyroxine 75 mcg daily, lisinopril 10 mg daily, metoprolol succinate 50 mg q.12 hours, Renagel 800 mg t.i.d. with food and vitamin B complex (Nephro-Nataliya) 1 tablet daily. ALLERGIES: The patient lists allergies to IRON, PENICILLINS, TAPE, BENZOCAINE, MEPERIDINE, MORPHINE and NALBUPHINE. FAMILY HISTORY: Negative for early coronary artery disease. REVIEW OF SYSTEMS: The patient denies diplopia or loss of vision. She denies syncope, but states that she has been feeling very weak and lightheaded. She denies orthopnea or PND. She has not had fevers, chills, sweats or recent weight change. She has had some swelling in her lower extremities, which has gotten worse in the last week. She denies any focal weakness. She denies any new skin rashes. She does have chronic dyspnea, which has not changed much lately. She denies recent bleeding or any evidence of blood in her stools or urine. She denies bleeding from her nose or mouth. She did have the burning left anterior chest pain noted above. The remainder of review of systems is negative except as noted above. SOCIAL HISTORY: The patient lives with family. She is a . She does not smoke, but lives with smokers. She does not consume alcohol. PHYSICAL EXAMINATION: GENERAL: The patient is an elderly white female who looks older than her stated age. VITAL SIGNS: Blood pressure on admission was 76/40, is currently 124/78 after transfusion, her pulse is 84 and regular. She is afebrile. She weighs 59.9 kg and has a body mass index of 29.6 HEENT: Normocephalic, atraumatic. Extraocular muscles are intact. Sclerae are clear. Pupils equal, round and reactive to light. The oral mucosa is moist. Tongue is midline. NECK: Supple. She has no jugular distention. She has mild hepatojugular reflux. Carotids are full. I heard no bruits. She had no neck or supraclavicular masses. Respirations were unlabored. CHEST: Clear to auscultation and percussion. She had no presacral edema or chest wall tenderness. CARDIOVASCULAR: Heart had a regular rhythm. She had a fourth heart sound, but no third heart sound. She has a grade 2/6 systolic ejection murmur along the left sternal border radiating toward the base. No diastolic murmurs are present. The PMI is not displaced. There was no precordial heave, lift or thrill. ABDOMEN: Soft and normally active. She has no tenderness. [place], [place] REPORT OF CON[facility]ULTATION [id number] UN[facility] #: [id number] ROOM: [facility] DOCTOR: MADAN SHABAZZ MD BIRTHDATE: [birth year] EXTREMITIES: Showed 1+ edema of the ankles bilaterally. Pedal pulses were easily felt in the feet bilaterally. LABORATORY DATA: I reviewed her electrocardiogram from admission. At that time, she was in atrial fibrillation with a rapid ventricular response of about 118. She did have deep ST depressions with T-wave inversions in multiple leads suggesting the possibility of myocardial strain or ischemia. Chest x-ray does show cardiomegaly. There were no pleural effusions or infiltrates. Current hemoglobin is 8.4 with hematocrit 25.9. There are 5500 white cells and 153,000 platelets. Sodium is 141, potassium 4.2, BUN 31, creatinine 4.25. Her current troponin is 0.608. IMPRESSIONS: 1. Presentation with severe anemia and hypotension. The patient did have chest pain at the time of admission, but her symptoms have improved with transfusion. 2. Elevation in troponin. The patient has sustained an apparent myocardial injury. It is not clear at this time whether this represents a type 2 myocardial infarction (demand ischemia due to anemia, hypotension, dialysis, end-stage renal disease, etc.) or a true non-ST elevation [place]. The patient has had a catheterization reportedly within the last year, but no revascularization was done at that time. 3. End-stage renal disease, on dialysis for at least 6 years. 4. History of polycystic kidney disease. 5. History of hypertension. 6. History of coronary artery disease, status post stenting in the distant past. Details not available. PLAN: The patient's symptoms have improved and she is reverted to sinus rhythm with transfusion. I agree with withholding any drugs that would cause GI irritation including aspirin at this point. Even though she does have paroxysmal atrial fibrillation, her risk of systemic embolization is small since she is on dialysis. I would endeavor to keep her hemoglobin greater than 9 if at all possible and certainly greater than 8. We will request the records of her catheterization from [facility]. If it truly is entirely normal, then we will continue to treat her empirically. If, however, there are coronary occlusions noted, a pharmacologic stress test, once her health has improved, may be in order to assess her ongoing risk. We will also be obtaining an echocardiogram to reassess chamber dimensions, LV function and valve function. We will follow her with her other physicians and we thank the hospitalist physicians for asking our advice regarding her management. [place], [place] REPORT OF CONSULTATION NAME: STEWART VELARDE [facility] UNIT #: [id number] ROOM: 504 DOCTOR: MADAN SHABAZZ MD BIRTHDATE: [birth year] MADAN SHABAZZ MD CM:CONSTR:REPORT OF CONSULTATION 0928 12/07/16 2215 interface
--- NOTE | ~2016-12-06 | PR ---
[place], [place] PROGRESS NOTE NAME: STEWART VELARDE [facility] #: [id number] UNIT #: [id number] ROOM: 504 DOCTOR: RONDA KNOWLES MD BIRTHDATE: [birth year] DOS: NEPHROLOGY FOLLOWUP NOTE SUBJECTIVE: The patient was seen and examined. She was seen on hemodialysis. She is awake and alert. She denies shortness of breath, nausea, vomiting or diarrhea. She denied any major complaints except some edema issues. PHYSICAL EXAMINATION: VITAL SIGNS: Temperature is 98.1, pulse 84, respirations 18, blood pressure 137/43. HEENT: Shows no JVD. LUNGS: Diminished breath sounds. No wheeze. HEART: Normal S1, S2. No rub, thrill or gallop. ABDOMEN: Soft, nontender. There is no organomegaly. EXTREMITIES: Have 1+ edema. LABORATORY DATA: Hemoglobin 8.2, white count of 5.5, platelet count 149. Sodium 146, potassium 4.8, CO2 of 27, BUN 63, creatinine 6.1, glucose 81, calcium 8.4, phosphorus 6.9, albumin 2.7. IMPRESSION: 1. End-stage renal disease, on hemodialysis on Saturday, and Saturday. The patient currently is on dialysis. She is completing treatment and tolerating ultrafiltration. 2. Anemia with gastrointestinal bleeding. Transfuse as needed. We will be Epogen with dialysis. 3. Hyperphosphatemia. Continue binders. The patient has tertiary hyperparathyroidism and is on Sensipar as well. 4. Hypothyroidism. Continue levothyroxine. 5. Chronic obstructive pulmonary disease. Continue supportive care. Await discharge planning. RONDA KNOWLES MD CM:PNTRANS 1555 2 RONDA KNOWLES MD 12/09/16612 interface
[~2016-12-06 14:16] MED LIST changes: +LEVOFLOXACIN500 MG PO
[2016-12-06 15:04] LABS: MEAN CELL VOLUME 98.4 fl (81.0-99.0); MEAN CORPUSCULAR HGB 30.2 pg (27.0-31.0); MEAN CORPUSCULAR HGB CONC 30.7 g/dl (33.0-37.0); PLATELET COUNT AUTOMATED 162 10*3/uL (130-400); RED BLOOD COUNT 1.82 10*6/uL (4.10-5.10); RED CELL DISTRI WIDTH 19.5 % (0-14.5); WHITE BLOOD COUNT 5.3 10*3/uL (4.8-10.8)
[2016-12-06 15:05] LABS: INTERNATIONAL NORM RATIO 1.1 (2.0-3.5); PROTHROMBIN TIME 11.2 SECONDS (9.0-12.4)
[2016-12-06 15:12] LABS: HEMOGLOBIN 5.5 g/dl (12.0-16.0)
[2016-12-06 15:13] LABS: HEMATOCRIT 17.9 % (37.0-47.0)
[2016-12-06 15:15] LABS: ALBUMIN 2.7 gm/dl (3.1-4.5); BILIRUBIN, TOTAL 0.5 mg/dl (0.2-1.0); MAGNESIUM 1.7 mg/dL (1.5-2.1); POTASSIUM 3.3 mmol/L (3.5-5.1); TOTAL PROTEIN 5.1 gm/dL (6.4-8.2); TROPONIN I 0.034 ng/ml (<0.045)
[2016-12-06 15:30] LABS: BASOPHIL # 0.1 10*3/uL (0-0.1); BASOPHILS 1 % (0-1); EOSINOPHIL # 0.1 10*3/uL (0-0.4); EOSINOPHILS 2 % (1-4); LYMPHOCYTE # 0.5 10*3/uL (1.3-4.4); NEUTROPHIL # 4.6 10*3/uL (2.3-7.9); NEUTROPHILS 87 % (47-73); TOTAL CELLS COUNTED 100 #CELLS
[2016-12-06 15:34] LABS: HYPOCHROMIA SLIGHT; POLYCHROMASIA SLIGHT; STOMATOCYTE FEW
[2016-12-06 15:36] LABS: PLATELET SUFFICIENCY NORMAL (NORMAL)
[2016-12-06] MEDS ORDERED: ELIQUIS2.5 M1 PO (16:06)
[2016-12-06] MEDS ORDERED: PROTONIX40 MG PO (16:07)
[2016-12-06] MEDS ORDERED: ASPIRIN CHEWABL81 MG PO (17:17)
[2016-12-06 21:09] LABS: BILIRUBIN NEGATIVE (NEGATIVE); BLOOD 2+ (NEGATIVE); CLARITY CLEAR (CLEAR); COLOR YELLOW (YELLOW); GLUCOSE TRACE (NEGATIVE); KETONE 1+ (NEGATIVE); LEUKO ESTERASE NEGATIVE (NEGATIVE); NITRITE NEGATIVE (NEGATIVE); PH 8.5 (5.0-9.0); PROTEIN 1+ (NEGATIVE); UROBILINOGEN 0.2 E.U./dl (0.2-1.0)
[2016-12-06 21:18] LABS: BACTERIA TRACE; MUCOUS 1+; URINE REFLEX COMMENT YES (NO)
[2016-12-06 22:25] LABS: HEMATOCRIT 26.3 % (37.0-47.0); HEMOGLOBIN 8.5 g/dl (12.0-16.0)
[2016-12-07] VITALS: BP 111/15
[2016-12-07 04:00] VITALS: BP 117/45
[2016-12-07 05:29] LABS: ALBUMIN 2.6 gm/dl (3.1-4.5); MAGNESIUM 1.8 mg/dL (1.5-2.1); PHOSPHOROUS 5.1 mg/dL (2.5-4.9); POTASSIUM 4.2 mmol/L (3.5-5.1)
[2016-12-07 06:04] LABS: BASO % 0.5 % (0.0-1.0); EOS # 0.1 10*3/uL (0.0-0.4); EOS % 1.3 % (1.0-4.0); HEMATOCRIT 25.9 % (37.0-47.0); HEMOGLOBIN 8.4 g/dl (12.0-16.0); LYMPH # 0.8 10*3/uL (1.3-4.4); LYMPH % 14.9 % (27.0-41.0); MEAN CORPUSCULAR HGB 30.9 pg (27.0-31.0); MEAN CORPUSCULAR HGB CONC 32.4 g/dl (33.0-37.0); MEAN PLATELET VOLUME 10.7 fl (9.6-12.3); MONO # 0.6 10*3/uL (0.1-1.0); MONO % 11.3 % (3.0-9.0); NEUT % 71.6 % (47.0-73.0); PLATELET COUNT AUTOMATED 153 10*3/uL (130-400); RED BLOOD COUNT 2.72 10*6/uL (4.10-5.10); RED CELL DISTRI WIDTH 17.8 % (0-14.5); WHITE BLOOD COUNT 5.5 10*3/uL (4.8-10.8)
[2016-12-07 06:19] LABS: MEAN CELL VOLUME 95.2 fl (81.0-99.0)
[2016-12-07 06:24] LABS: INTERNATIONAL NORM RATIO 1.1 (2.0-3.5); PROTHROMBIN TIME 11.4 SECONDS (9.0-12.4)
[2016-12-07 08:00] VITALS: BP 124/78
[2016-12-07 12:00] VITALS: BP 158/62
[2016-12-07 16:00] VITALS: BP 130/54
[2016-12-07 20:00] VITALS: BP 139/76
[2016-12-08] VITALS: BP 146/61
[2016-12-08 06:32] LABS: BASO % 0.4 % (0.0-1.0); EOS # 0.3 10*3/uL (0.0-0.4); EOS % 5.4 % (1.0-4.0); HEMATOCRIT 25.9 % (37.0-47.0); HEMOGLOBIN 8.2 g/dl (12.0-16.0); LYMPH # 1.1 10*3/uL (1.3-4.4); LYMPH % 20.1 % (27.0-41.0); MEAN CORPUSCULAR HGB 30.7 pg (27.0-31.0); MEAN CORPUSCULAR HGB CONC 31.7 g/dl (33.0-37.0); MEAN PLATELET VOLUME 10.8 fl (9.6-12.3); MONO # 0.8 10*3/uL (0.1-1.0); MONO % 13.6 % (3.0-9.0); NEUT # 3.3 10*3/uL (2.3-7.9); NEUT % 60.1 % (47.0-73.0); PLATELET COUNT AUTOMATED 149 10*3/uL (130-400); RED BLOOD COUNT 2.67 10*6/uL (4.10-5.10); RED CELL DISTRI WIDTH 17.6 % (0-14.5); WHITE BLOOD COUNT 5.5 10*3/uL (4.8-10.8)
[2016-12-08 08:00] VITALS: BP 137/43
[2016-12-08 08:01] LABS: ALBUMIN 2.7 gm/dl (3.1-4.5); BILIRUBIN, TOTAL 0.6 mg/dl (0.2-1.0); MAGNESIUM 2.4 mg/dL (1.5-2.1); PHOSPHOROUS 6.9 mg/dL (2.5-4.9); POTASSIUM 4.8 mmol/L (3.5-5.1); TOTAL PROTEIN 5.1 gm/dL (6.4-8.2)
[2016-12-08 16:00] VITALS: BP 118/64; BP 136/60; BP 156/50
[2016-12-08 20:00] VITALS: BP 121/55
[2016-12-09] VITALS: BP 110/54
[2016-12-09 06:14] LABS: BASO % 0.7 % (0.0-1.0); EOS # 0.3 10*3/uL (0.0-0.4); EOS % 6.2 % (1.0-4.0); HEMATOCRIT 23.1 % (37.0-47.0); HEMOGLOBIN 7.1 g/dl (12.0-16.0); LYMPH % 22.6 % (27.0-41.0); MEAN CELL VOLUME 99.1 fl (81.0-99.0); MEAN CORPUSCULAR HGB 30.5 pg (27.0-31.0); MEAN CORPUSCULAR HGB CONC 30.7 g/dl (33.0-37.0); MONO # 0.6 10*3/uL (0.1-1.0); MONO % 13.2 % (3.0-9.0); NEUT # 2.5 10*3/uL (2.3-7.9); NEUT % 57.1 % (47.0-73.0); PLATELET COUNT AUTOMATED 155 10*3/uL (130-400); RED BLOOD COUNT 2.33 10*6/uL (4.10-5.10); RED CELL DISTRI WIDTH 17.2 % (0-14.5); WHITE BLOOD COUNT 4.4 10*3/uL (4.8-10.8)
[2016-12-09 08:00] VITALS: BP 123/48
[2016-12-09 12:00] VITALS: BP 120/56
[2016-12-09 16:00] VITALS: BP 132/53
[2016-12-09 20:00] VITALS: BP 137/69
[2016-12-10] VITALS: BP 137/58
[2016-12-10 06:34] LABS: BASO % 0.5 % (0.0-1.0); EOS # 0.4 10*3/uL (0.0-0.4); EOS % 7.9 % (1.0-4.0); HEMATOCRIT 21.6 % (37.0-47.0); HEMOGLOBIN 6.9 g/dl (12.0-16.0); IG # 0.1 10*3/uL (0.0-0.1); LYMPH # 1.1 10*3/uL (1.3-4.4); LYMPH % 19.1 % (27.0-41.0); MEAN CELL VOLUME 97.7 fl (81.0-99.0); MEAN CORPUSCULAR HGB 31.2 pg (27.0-31.0); MEAN CORPUSCULAR HGB CONC 31.9 g/dl (33.0-37.0); MEAN PLATELET VOLUME 11.3 fl (9.6-12.3); MONO # 0.7 10*3/uL (0.1-1.0); MONO % 11.6 % (3.0-9.0); NEUT # 3.4 10*3/uL (2.3-7.9); NEUT % 59.8 % (47.0-73.0); PLATELET COUNT AUTOMATED 176 10*3/uL (130-400); RED BLOOD COUNT 2.21 10*6/uL (4.10-5.10); RED CELL DISTRI WIDTH 16.7 % (0-14.5); WHITE BLOOD COUNT 5.6 10*3/uL (4.8-10.8)
[2016-12-10 08:00] VITALS: BP 124/44
[2016-12-10 12:00] VITALS: BP 126/56
[2016-12-10 16:00] VITALS: BP 121/58
[2016-12-10 20:00] VITALS: BP 146/88
[2016-12-10] MEDS ORDERED: ATORVASTATIN CA40 M1 PO (20:18)
[2016-12-10 20:35] LABS: BILIRUBIN, TOTAL 0.5 mg/dl (0.2-1.0)
[2016-12-10 21:03] LABS: BILIRUBIN, TOTAL 0.7 mg/dl (0.2-1.0)
== END 2016-12-10 21:00 | disposition short-term general hospital (02) | DRG 377 ==
LOC: ED 14:16 → EDHOLD 15:28 → 5E 15:28 → ICCU 15:28 → 5E 12-07 13:33
PROVIDERS: Emergency Medicine; Hospitalist; Internal Medicine; Student in an Organized Health Care Education/Training Program
PROC: 30233N1 Transfusion of Nonautologous Red Blood Cells into Peripheral Vein, Percutaneous Approach (ICD-10-PCS; principal; 2016-12-06)
PROC: 5A1D00Z (ICD-10-PCS; 2016-12-08)
PROC: 30243N1 Transfusion of Nonautologous Red Blood Cells into Central Vein, Percutaneous Approach (ICD-10-PCS; 2016-12-10)
PROC: 02HV33Z Insertion of Infusion Device into Superior Vena Cava, Percutaneous Approach (ICD-10-PCS; 2016-12-10)
DX: K92.2 Gastrointestinal hemorrhage, unspecified (principal); N18.6 End stage renal disease; I21.4 Non-ST elevation (NSTEMI) myocardial infarction; R57.1 Hypovolemic shock; E43 Unspecified severe protein-calorie malnutrition; I48.0 Paroxysmal atrial fibrillation; I12.0 Hypertensive chronic kidney disease with stage 5 chronic kidney disease or end stage renal disease; I95.9 Hypotension, unspecified; Q61.3 Polycystic kidney, unspecified; J44.9 Chronic obstructive pulmonary disease, unspecified; Z96.649 Presence of unspecified artificial hip joint; F17.200 Nicotine dependence, unspecified, uncomplicated; R00.0 Tachycardia, unspecified; D64.9 Anemia, unspecified; E03.9 Hypothyroidism, unspecified; Z66 Do not resuscitate; F32.9 Major depressive disorder, single episode, unspecified; I25.10 Atherosclerotic heart disease of native coronary artery without angina pectoris; E87.6 Hypokalemia; E21.3 Hyperparathyroidism, unspecified; Z90.49 Acquired absence of other specified parts of digestive tract; Z99.2 Dependence on renal dialysis; Z95.5 Presence of coronary angioplasty implant and graft; I25.2 Old myocardial infarction; Z82.49 Family history of ischemic heart disease and other diseases of the circulatory system; Z88.0 Allergy status to penicillin; Z88.6 Allergy status to analgesic agent; Z88.8 Allergy status to other drugs, medicaments and biological substances; Z91.048 Other nonmedicinal substance allergy status; Z79.82 Long term (current) use of aspirin; Z79.899 Other long term (current) drug therapy; Z90.710 Acquired absence of both cervix and uterus; Z68.29 Body mass index [BMI] 29.0-29.9, adult

== ENCOUNTER 2017-06-11 13:01 | Inpatient (IN) | payer OTHER, MEDICAID ==
[~2017-06-11] VITALS: Ht 139.7 cm; Wt 55.9 kg
[2017-06-11] VITALS (7 sets, daily range): BP systolic 104–128; BP diastolic 50–90
--- NOTE | ~2017-06-11 | CON ---
[place], [place] REPORT OF CONSULTATION NAME: STEWART VELARDE [facility] #: [id number] UNIT #: [id number] ROOM: 422 DOCTOR: ANDREW AGUAYO MD BIRTHDATE: [birth year] DOS: 06/12/2017 HISTORY OF PRESENT ILLNESS: This is a 77-year-old -[place] woman with a history of end-stage renal disease. She had polycystic kidney disease and now has been dialyzing for a few years. She has coronary artery disease and had a couple of stents deployed in [place]. She has essential hypertension and also paroxysmal atrial fibrillation. She has never had a stroke, heart failure, asthma or emphysema. She has had a cholecystectomy, hysterectomy, appendectomy and has hypothyroidism. About 3 years ago, she had a Lexiscan Cardiolite study, which did not demonstrate any ischemia. She was dialyzing yesterday and during dialysis, she developed anterior pressure, heaviness. There was some feeling in the left arm as well. It was moderate in intensity and there was no accompanying nausea, vomiting or palpitations. This feeling lasted for the most part of the day and a few hours into the night yesterday. She has not had any loss of consciousness or swelling of the lower extremities. She lives at home with some help from her family members and home health, I believe. She does not smoke nor does she drink alcoholic beverages. HOME MEDICATIONS: Include Sensipar 30 mg daily, levothyroxine 75 mcg daily, lisinopril 10 mg daily, metoprolol succinate 50 mg b.i.d., omeprazole 20 mg daily, pravastatin 40 mg daily, vitamin B complex and Renagel 800 mg t.i.d. PHYSICAL EXAMINATION: GENERAL: The patient is pleasant, alert. Her complexion does not look pale now. She has been afebrile. No thyromegaly or finger clubbing. VITAL SIGNS: Pulse is irregular at 76 beats per minute, blood pressure 176/73. Previous blood pressure was 148/62 and 150/70. NECK: Normal JVP. AJR is negative. There is no carotid bruit. HEART: There is no cardiomegaly. Auscultation reveals no rubs. There is no murmur. EXTREMITIES: There is no edema in the lower extremities. RESPIRATORY: She has a few occasional rhonchi, but breath sounds are fairly decent. ABDOMEN: Liver is not enlarged and there is no abdominal bruit. An ECG demonstrated atrial fibrillation with ventricular rate of 108 beats per minute with normal ST-T waves. Troponin I level was 0.155 on admission and subsequent level was 0.41, 0.56, 0.52 and 0.47. Chest x-ray demonstrated no abnormality. IMPRESSION: 1. Coronary artery disease and chest discomfort. The troponin I level is slightly increased. There was some upward trend, elevation may be due to hypertension, atrial fibrillation with rapid rate and of course end-stage renal disease. She is pain free now and I believe Dr. Shepherd is planning to do a selective coronary angiogram on her tomorrow. 2. Hypertension. Blood pressure is creeping up maybe with lack of medications. [place], [place] REPORT OF CONSULTATION NAME: STEWART VELARDE UNIT #: [id number] ROOM: 422 DOCTOR: ANDREW AGUAYO MD BIRTHDATE: [birth year] I thank you on behalf of Dr. Shepherd for this consult. ANDREW AGUAYO MD CM:CONSTR:REPORT OF CONSULTATION 1803 06/12/17 0028 interface
[~2017-06-11 13:01] MED LIST changes: +ASPIRIN CHEWABL81 MG PO; +ATORVASTATIN CA40 M1 PO
[2017-06-11 14:27] LABS: HEMATOCRIT 34.1 % (37.0-47.0); HEMOGLOBIN 10.6 g/dl (12.0-16.0); MEAN CELL VOLUME 108.9 fl (81.0-99.0); MEAN CORPUSCULAR HGB 33.9 pg (27.0-31.0); MEAN CORPUSCULAR HGB CONC 31.1 g/dl (33.0-37.0); MEAN PLATELET VOLUME 11.4 fl (9.6-12.3); PLATELET COUNT AUTOMATED 170 10*3/uL (130-400); RED BLOOD COUNT 3.13 10*6/uL (4.10-5.10); RED CELL DISTRI WIDTH 14.2 % (0-14.5); WHITE BLOOD COUNT 6.8 10*3/uL (4.8-10.8)
[2017-06-11 14:37] LABS: ACT PARTIAL THROMBO TIME 26.4 SECONDS (20.8-31.5)
[2017-06-11 14:43] LABS: ALBUMIN 3.5 gm/dl (3.1-4.5); CREATININE 4.3 mg/dL (0.55-1.02)
[2017-06-11 14:46] LABS: TROPONIN I 0.045 ng/ml (<0.045)
[2017-06-11 14:58] LABS: TOTAL CELLS COUNTED 100 #CELLS
[2017-06-11 14:59] LABS: PLATELET SUFFICIENCY NORMAL (NORMAL); STOMATOCYTE FEW
--- NOTE | 2017-06-11 16:58 | NUR ---
DR HYMAN NOTIFIED OF CRITICAL TROPONIN OF 0.155. NO NEW ORDERS AT THIS TIME.
--- NOTE | 2017-06-11 17:45 | NUR ---
A 77, admitted to 4E, under the services of JOSEPH iTmmons DO with a diagnosis of CHEST PAIN R/O LA. Chief complaint is CHEST PAIN DURING DIALYSIS. Patient arrived via ambulance from ER. Monitor applied. Initial assessment completed. Vital signs taken and recorded. JOSEPH TIMMONS DO notified of admission to the unit. Orders received. See assessment for past medical history, medications and allergies. Patient and/or family oriented to unit. [facility] visitation policy reviewed. Clothing/patient valuable form completed. ELBERT QUACH
[2017-06-11] MEDS ORDERED: OMEPRAZOLE20 M2 PO (18:01)
[2017-06-11] MEDS ORDERED: PRAVACHOL40 MG PO (18:01)
--- NOTE | 2017-06-11 18:02 | NUR ---
MED REC UPDATED AND VERIFIED BY LIST PROVIDED BY PT, DR HYMAN NOTIFIED.
--- NOTE | 2017-06-11 20:28 | NUR ---
CALLED FOR [facility]. WILL DIONNE TO MONITOR PT.
--- NOTE | 2017-06-11 20:45 | NUR ---
CARDIOLOGY AWARE OF CONSULT. WILL CONTINUE TO MONITOR PT.
--- NOTE | 2017-06-11 21:10 | NUR ---
PT WENT ASYSTOLE FOR 3 SECONDS. PT CHECKED AND WAS ASYMPOTOMATIC AND BP WAS BP WAS BASELINE. DR. CHAMBERS, AND DR. GONZALEZ MADE AWARE.
--- NOTE | 2017-06-11 21:22 | NUR ---
CALLED DR. GONZALEZ ON 3 SECOND RUN OF ASYSTOLE. HE ORDERED TO GIVE HALF DOSE OF EVELIO ALLYSON (25MG) AND HE WILL CHECK HER OUT IN THE MORNING.
--- NOTE | 2017-06-11 21:36 | NUR ---
DR. CHAMBERS IN TO SEE PT. HE REINFORCED INSTRUCTIONS BY DR. GONZALEZ. WILL CONTINUE TO MONITOR PT.
[2017-06-12] VITALS (11 sets, daily range): BP systolic 104–176; BP diastolic 43–78
[2017-06-12 06:48] LABS: BASO % 0.8 % (0.0-1.0); EOS # 0.2 10*3/uL (0.0-0.4); EOS % 5.2 % (1.0-4.0); HEMOGLOBIN 8.9 g/dl (12.0-16.0); LYMPH % 28.3 % (27.0-41.0); MEAN CELL VOLUME 107.8 fl (81.0-99.0); MEAN CORPUSCULAR HGB 33.1 pg (27.0-31.0); MEAN CORPUSCULAR HGB CONC 30.7 g/dl (33.0-37.0); MEAN PLATELET VOLUME 11.6 fl (9.6-12.3); MONO # 0.5 10*3/uL (0.1-1.0); MONO % 13.1 % (3.0-9.0); NEUT # 1.9 10*3/uL (2.3-7.9); NEUT % 52.3 % (47.0-73.0); PLATELET COUNT AUTOMATED 150 10*3/uL (130-400); RED BLOOD COUNT 2.69 10*6/uL (4.10-5.10); RED CELL DISTRI WIDTH 14.1 % (0-14.5); WHITE BLOOD COUNT 3.7 10*3/uL (4.8-10.8)
[2017-06-12 07:07] LABS: CREATININE 5.87 mg/dL (0.55-1.02); PHOSPHOROUS 3.7 mg/dL (2.5-4.9); POTASSIUM 4.9 mmol/L (3.5-5.1)
--- NOTE | 2017-06-12 08:01 | NUR ---
ELEVATED TROPONIN OF 0.[address] HYMAN.
--- NOTE | 2017-06-12 08:30 | NUR ---
Community [facility] Nurse Supervisor in to talk to patient. Patient states lives at HOME with HER SON, DAUGHTER IN LAW AND GRANDSON. There are SEVERAL steps in the home. Physician: DR HAYES Pharmacy: [facility] health services: [facility] 2 HOURS A DAY, 7 DAYS A WEEK. [facility] TRANSPORTATION TAKES HER TO AND FROM DIALYSIS T-TH-SAT Patient's level of ADLs: MODERATE ASSIST Patient has working utilities: YES DME: [facility]E/WALKER/WC/O2 BMS Follow-up physician's appointment after d/c: WILL BE MADE PRIOR TO DC Does patient want to access PORTAL?: Discharge plan HOME. JOB MEJIA
--- NOTE | 2017-06-12 09:44 | NUR ---
CONSULT CALLED TO DR GREENBERG.
[2017-06-12 09:56] LABS: VITAMIN D, 25-HYDROXY 31.2 ng/mL (30-100)
--- NOTE | 2017-06-12 10:30 | NUR ---
PER DR GREENBERG, PT IS TO BE TRANSFERRED TO [facility] 06/13/17 TO UNDER GO A CARDIAC CATH.[facility] TO PICK HER UP 06:45 06/13/17.
--- NOTE | 2017-06-12 11:00 | NUR ---
ELEVATED TROPONIN OF 0.[address] HYMAN.
--- NOTE | 2017-06-12 13:30 | NUR ---
ELEVATED TROPONIN OF 0.[address] HYMAN.
--- NOTE | 2017-06-12 13:47 | NUR ---
NOTIFIED OF ELEVATED TROP OF 0.475. NO NEW ORDERS AT THIS TIME.
--- NOTE | 2017-06-12 16:35 | NUR ---
1 UNIT OF PACKED CELLS INITIATED AT 75 ML/HR. RAN FOR 15 MIN. PT TOLERATED WELL. 16:50 RATE INCREASED TO 125 ML/HR, PT CONTINUES TO TOLERATE WELL.
--- NOTE | 2017-06-12 19:50 | NUR ---
BLOOD TRANSFUSION COMPLETE. POST BLOOD VITQAL STABLE. NO CONCERNS AT THIS TIME.
[2017-06-13] VITALS: BP 134/59
[2017-06-13 00:10] LABS: BASO % 0.8 % (0.0-1.0); EOS # 0.2 10*3/uL (0.0-0.4); EOS % 4.3 % (1.0-4.0); HEMATOCRIT 33.6 % (37.0-47.0); HEMOGLOBIN 10.8 g/dl (12.0-16.0); LYMPH # 0.9 10*3/uL (1.3-4.4); LYMPH % 16.4 % (27.0-41.0); MEAN CORPUSCULAR HGB 33.6 pg (27.0-31.0); MEAN CORPUSCULAR HGB CONC 32.1 g/dl (33.0-37.0); MEAN PLATELET VOLUME 11.7 fl (9.6-12.3); MONO # 0.4 10*3/uL (0.1-1.0); MONO % 8.3 % (3.0-9.0); NEUT # 3.7 10*3/uL (2.3-7.9); PLATELET COUNT AUTOMATED 143 10*3/uL (130-400); RED BLOOD COUNT 3.21 10*6/uL (4.10-5.10); RED CELL DISTRI WIDTH 15.6 % (0-14.5); WHITE BLOOD COUNT 5.3 10*3/uL (4.8-10.8)
[2017-06-13 00:11] LABS: MEAN CELL VOLUME 104.7 fl (81.0-99.0)
--- NOTE | 2017-06-13 06:20 | NUR ---
PATIENT REPORT CALLED TO HELEN FROM THE SURVEY METHODOLOGIST AT [facility]. HEAD TO TOE ASSESSMENT GIVEN, LABS AND CARE HX WHILE AT [facility]. NO CONCERNS FROM HELEN AT THIS TIME.
[2017-06-13 07:37] LABS: BASO % 0.8 % (0.0-1.0); EOS # 0.3 10*3/uL (0.0-0.4); EOS % 5.2 % (1.0-4.0); HEMATOCRIT 35.7 % (37.0-47.0); HEMOGLOBIN 11.5 g/dl (12.0-16.0); LYMPH # 0.7 10*3/uL (1.3-4.4); LYMPH % 13.5 % (27.0-41.0); MEAN CELL VOLUME 104.1 fl (81.0-99.0); MEAN CORPUSCULAR HGB 33.5 pg (27.0-31.0); MEAN CORPUSCULAR HGB CONC 32.2 g/dl (33.0-37.0); MEAN PLATELET VOLUME 11.9 fl (9.6-12.3); MONO # 0.5 10*3/uL (0.1-1.0); MONO % 10.6 % (3.0-9.0); NEUT # 3.4 10*3/uL (2.3-7.9); NEUT % 69.7 % (47.0-73.0); PLATELET COUNT AUTOMATED 152 10*3/uL (130-400); RED BLOOD COUNT 3.43 10*6/uL (4.10-5.10); RED CELL DISTRI WIDTH 15.5 % (0-14.5); WHITE BLOOD COUNT 4.8 10*3/uL (4.8-10.8)
--- NOTE | 2017-06-13 07:51 | NUR ---
PT TRANSPORTED BY [facility] TO [facility] AT THIS TIME. ALL APPROPRIATE PAPERWORK FAXED TO [facility]/GIVEN TO THE PARAMEDICS.
[2017-06-13 08:08] LABS: POTASSIUM 5.3 mmol/L (3.5-5.1)
[2017-06-13 08:14] LABS: ALBUMIN 3.2 gm/dl (3.1-4.5); CREATININE 7.89 mg/dL (0.55-1.02); PHOSPHOROUS 4.1 mg/dL (2.5-4.9)
== END 2017-06-13 07:51 | disposition short-term general hospital (02) | DRG 280 ==
LOC: ED 13:01 → EDHOLD 16:21 → ED 16:21 → EDHOLD 16:37 → 4E 16:40
PROVIDERS: Internal Medicine Nephrology; Physician Assistant; ADMIT Internal Medicine
PROC: 30233N1 Transfusion of Nonautologous Red Blood Cells into Peripheral Vein, Percutaneous Approach (ICD-10-PCS; principal; 2017-06-12)
DX: I21.4 Non-ST elevation (NSTEMI) myocardial infarction (principal); N18.6 End stage renal disease; I46.9 Cardiac arrest, cause unspecified; I12.0 Hypertensive chronic kidney disease with stage 5 chronic kidney disease or end stage renal disease; E83.41 Hypermagnesemia; D62 Acute posthemorrhagic anemia; E83.51 Hypocalcemia; Q61.3 Polycystic kidney, unspecified; K92.2 Gastrointestinal hemorrhage, unspecified; I48.0 Paroxysmal atrial fibrillation; Z51.5 Encounter for palliative care; Z66 Do not resuscitate; I25.119 Atherosclerotic heart disease of native coronary artery with unspecified angina pectoris; D72.810 Lymphocytopenia; Z84.89 Family history of other specified conditions; D53.9 Nutritional anemia, unspecified; Z96.643 Presence of artificial hip joint, bilateral; R19.5 Other fecal abnormalities; J44.9 Chronic obstructive pulmonary disease, unspecified; E03.9 Hypothyroidism, unspecified; Z95.5 Presence of coronary angioplasty implant and graft; Z82.49 Family history of ischemic heart disease and other diseases of the circulatory system; Z83.3 Family history of diabetes mellitus; Z79.899 Other long term (current) drug therapy; Z88.0 Allergy status to penicillin; Z88.8 Allergy status to other drugs, medicaments and biological substances; Z99.2 Dependence on renal dialysis; Z91.81 History of falling; Z91.040 Latex allergy status; Z71.6 Tobacco abuse counseling; Z72.0 Tobacco use; Z87.19 Personal history of other diseases of the digestive system; Z82.5 Family history of asthma and other chronic lower respiratory diseases; Z90.710 Acquired absence of both cervix and uterus; Z90.49 Acquired absence of other specified parts of digestive tract; Z90.89 Acquired absence of other organs; Z88.6 Allergy status to analgesic agent

== ENCOUNTER 2017-07-08 13:19 | Inpatient (IN) | payer OTHER, MEDICAID ==
[2017-07-08] VITALS (17 sets, daily range): BP systolic 101–153; BP diastolic 40–63
[~2017-07-08] VITALS: Ht 139.7 cm; Wt 55.9 kg
--- NOTE | ~2017-07-08 | O ---
[place], [place] OPERATIVE NOTE [facility]DE [id number] UNIT #: [id number] ROOM: 502 DOCTOR: WILEY MCCRARY,NIA BIRTHDATE: [birth year] DOS: GASTROENDOSCOPIC REPORT INDICATIONS: A 77-year-old patient who presented with a chief complaint of black tarry stool and she has been assessed and consultation has been dictated. She had last H and H, as 9 and 28, this is status post transfusion. PROCEDURE: Today's procedure part of investigation is panendoscopy plus biopsy. PREMEDICATION: Versed and Diprivan. SCOPE: Olympus forward-viewing gastroscope Q10 video. REPORT: After putting the patient in left lateral position and application of lubricant to the scope, the scope was introduced. Thereafter, under direct visualization, advanced through the length of esophagus without difficulty. Hiatal hernia was noticed, which is 2 cm. Gastric pouch was entered. Gastritis was seen. Duodenal bulb, second and third part within normal limit. The patient extubated, tolerated procedure well. IMPRESSION: Small hiatal hernia, gastritis, status post biopsy. PLAN AND DISCUSSION: I did not see any source of bleeding in her. Anemia could have a major contribution from chronic renal failure and would be chronic renal failure on dialysis dependency due to microcytic indices, recommending B12 and folate assessment as well. As far as her anemia is concerned, she has received 1 unit of packed cells. DIET: Regular, renal diet. ACTIVITY: As tolerated. NIA JAMA MD CM:OPRECORD:OPERATIVE NOTE [id number] NIA JAMA MD 07/10/17 1219 interface
--- NOTE | ~2017-07-08 | EKG ---
[place], [place] ELECTROCARDIOGRAM REPORT NAME: STEWART VELARDE UNIT #: [id number] ROOM: [facility] DOCTOR: NARINDER METZGER MD BIRTHDATE: [birth year] DOS: 07/09/2017 IMPRESSION: Normal sinus rhythm, normal ECG. Narinder Metzger MD CM:EKGRPT:ELECTROCARDIOGRAM REPORT 36 [phone] NARINDER METZGER MD
--- NOTE | ~2017-07-08 | CON ---
[place], [place] REPORT OF CONSULTATION NAME: STEWART VELARDE [facility] #: [id number] UNIT #: [id number] ROOM: 502 DOCTOR: NIA JAMA MD BIRTHDATE: [birth year] DOS: 07/10/2017 HISTORY OF PRESENT ILLNESS: This is a 77-year-old patient who has presented with chief complaint of abdominal pain, and history of black tarry stool. The patient is suspected to have GI bleed, has been admitted for definitive evaluation. PAST MEDICAL HISTORY: Coronary artery disease, chronic obstructive lung disease, congestive heart failure, hypothyroidism, polycystic kidney disease, and hypertension. PAST SURGICAL HISTORY: Cholecystectomy, appendectomy, coronary artery stents, right hip prosthesis, and left hip prosthesis. SOCIAL HISTORY: Tobacco use, chewing tobacco as well. FAMILY HISTORY: Noncontributory. ALLERGIES: TO PENICILLIN, IRON, DEMEROL, AND NUBAIN. MEDICATIONS: List has been reviewed. The patient has been on omeprazole amongst others that reviewed. REVIEW OF SYSTEMS: HEENT: Denies double vision, blurred vision. RESPIRATORY: Denies shortness of breath. CARDIOVASCULAR: Denies chest pain. DIGESTIVE SYSTEM: Black tarry stool, she says about 1 week. PHYSICAL EXAMINATION: VITAL SIGNS: Stable. HEENT: Head normocephalic, nontraumatic. Eyes: Pupils round and reactive. Mouth and buccal mucosa benign, edentulous. No aphthae ulcerations. NECK: Supple. No thyromegaly. No cervical lymphadenopathy. CHEST: Symmetric anatomy, equal expansion. No wheeze, no rhonchi. HEART: Normal sinus rhythm. No gallop, no murmur. ABDOMEN: Soft. No hepato-organomegaly. Bowel sounds present. No pulsatile mass. EXTREMITIES: No cyanosis. No pedal edema. NEUROLOGIC: Alert, oriented to time, place, and person. LABORATORY DATA: Labs and records have been reviewed. Initial H and H has been 7 and 25. She is status post transfusion to improve H and H to 9 and 28. Indices are macrocytic. Platelets are 191. Initial comprehensive metabolic panel: BUN and creatinine of 77 and 7.8 has been noticed. Electrolyte imbalance. Amylase and lipase normal. Liver function tests normal. PLAN AND DISCUSSION: The patient with the history of renal insufficiency, anemia, status post transfusion. On the other hand, the patient on dialysis. On the other hand, the patient complaining of black tarry stool. We are [place], [place] REPORT OF CONSULTATION NAME: [facility]EL[facility]DE [id number] UNIT #: [id number] ROOM: 502 DOCTOR: NIA JAMA MD BIRTHDATE: [birth year] concerned if there has been any contribution from upper GI, although she has had 11/2016 endoscopy associated with gastritis and small hiatal hernia. An EGD would be in order. 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 All has been recognized. NIA JAMA MD CM:CONSTR:REPORT OF CONSULTATION 0919 07/10/17 1431 interface
[~2017-07-08 13:19] MED LIST changes: +OMEPRAZOLE20 M2 PO
[2017-07-08 15:13] LABS: HEMATOCRIT 25.7 % (37.0-47.0); HEMOGLOBIN 7.8 g/dl (12.0-16.0); MEAN CELL VOLUME 111.7 fl (81.0-99.0); MEAN CORPUSCULAR HGB 33.9 pg (27.0-31.0); MEAN CORPUSCULAR HGB CONC 30.4 g/dl (33.0-37.0); MEAN PLATELET VOLUME 10.4 fl (9.6-12.3); PLATELET COUNT AUTOMATED 180 10*3/uL (130-400); RED CELL DISTRI WIDTH 16.7 % (0-14.5); WHITE BLOOD COUNT 5.6 10*3/uL (4.8-10.8)
[2017-07-08 15:30] LABS: ALBUMIN 3.2 gm/dl (3.1-4.5); CREATININE 7.87 mg/dL (0.55-1.02); POTASSIUM 5.1 mmol/L (3.5-5.1); TOTAL PROTEIN 6.3 gm/dL (6.4-8.2)
[2017-07-08 15:31] LABS: TROPONIN I 0.027 ng/ml (<0.045)
[2017-07-08 15:56] LABS: BASOPHILS 2 % (0-1); TOTAL CELLS COUNTED 100 #CELLS
[2017-07-08 15:57] LABS: PLATELET SUFFICIENCY NORMAL (NORMAL); POLYCHROMASIA SLIGHT; STOMATOCYTE FEW
[2017-07-08 15:58] LABS: MICROCYTOSIS SLIGHT
[2017-07-08] MEDS ORDERED: IMDUR SA30 MG PO (17:36)
[2017-07-08] MEDS ORDERED: RENVELA800 MG PO (17:39)
[2017-07-09 00:53] LABS: HEMATOCRIT 26.7 % (37.0-47.0); HEMOGLOBIN 8.6 g/dl (12.0-16.0)
[2017-07-09 07:01] LABS: HEMATOCRIT 28.4 % (37.0-47.0)
[2017-07-09 07:31] LABS: POTASSIUM 4.3 mmol/L (3.5-5.1)
[2017-07-09 07:33] LABS: ACT PARTIAL THROMBO TIME 23.4 SECONDS (20.8-31.5)
[2017-07-09 07:43] LABS: ALBUMIN 2.9 gm/dl (3.1-4.5); CREATININE 8.66 mg/dL (0.55-1.02); FREE T4 0.96 ng/dl (0.76-1.46); PHOSPHOROUS 4.3 mg/dL (2.5-4.9); THYROID STIM HORMONE (HS) 1.43 uIU/ml (0.358-4.75); TOTAL PROTEIN 5.4 gm/dL (6.4-8.2)
[2017-07-09 08:00] VITALS: BP 126/46
[2017-07-09 08:12] LABS: VITAMIN D, 25-HYDROXY 21.5 ng/mL (30-100)
[2017-07-09 12:00] VITALS: BP 128/52
[2017-07-09 16:00] VITALS: BP 140/47
[2017-07-09 20:00] VITALS: BP 118/52
[2017-07-10] VITALS (10 sets, daily range): BP systolic 62–136; BP diastolic 26–59
[2017-07-10 02:54] LABS: BILIRUBIN NEGATIVE (NEGATIVE); BLOOD TRACE-LYSED (NEGATIVE); CLARITY CLEAR (CLEAR); COLOR YELLOW (YELLOW); GLUCOSE TRACE (NEGATIVE); KETONE NEGATIVE (NEGATIVE); LEUKO ESTERASE 1+ (NEGATIVE); NITRITE NEGATIVE (NEGATIVE); PH 8.5 (5.0-9.0); UROBILINOGEN 0.2 E.U./dl (0.2-1.0)
[2017-07-10 06:59] LABS: HEMATOCRIT 28.8 % (37.0-47.0); MEAN CELL VOLUME 109.1 fl (81.0-99.0); MEAN CORPUSCULAR HGB 34.1 pg (27.0-31.0); MEAN CORPUSCULAR HGB CONC 31.3 g/dl (33.0-37.0); MEAN PLATELET VOLUME 11.6 fl (9.6-12.3); PLATELET COUNT AUTOMATED 190 10*3/uL (130-400); RED BLOOD COUNT 2.64 10*6/uL (4.10-5.10); RED CELL DISTRI WIDTH 19.3 % (0-14.5); WHITE BLOOD COUNT 4.7 10*3/uL (4.8-10.8)
[2017-07-10 07:11] LABS: ALBUMIN 3.1 gm/dl (3.1-4.5); CREATININE 5.19 mg/dL (0.55-1.02); PHOSPHOROUS 3.6 mg/dL (2.5-4.9); POTASSIUM 4.4 mmol/L (3.5-5.1)
[2017-07-10 07:52] LABS: TOTAL CELLS COUNTED 100 #CELLS
[2017-07-10 07:53] LABS: PLATELET SUFFICIENCY NORMAL (NORMAL); POLYCHROMASIA SLIGHT
[2017-07-10] MEDS ORDERED: VITAMIN D31000 UNI1 PO (15:37)
== END 2017-07-10 16:58 | disposition home or self-care (01) | DRG 377 ==
LOC: ED 13:19 → EDHOLD 16:51 → 5E 16:51
PROVIDERS: Internal Medicine; Internal Medicine Gastroenterology; Internal Medicine Hospice and Palliative Medicine; Internal Medicine Nephrology; Physician Assistant
PROC: 30233N1 Transfusion of Nonautologous Red Blood Cells into Peripheral Vein, Percutaneous Approach (ICD-10-PCS; 2017-07-08)
PROC: 5A1D70Z Performance of Urinary Filtration, Intermittent, Less than 6 Hours Per Day (ICD-10-PCS; 2017-07-09)
PROC: 0DB68ZX Excision of Stomach, Via Natural or Artificial Opening Endoscopic, Diagnostic (ICD-10-PCS; principal; 2017-07-10)
DX: K29.71 Gastritis, unspecified, with bleeding (principal); N18.6 End stage renal disease; I13.2 Hypertensive heart and chronic kidney disease with heart failure and with stage 5 chronic kidney disease, or end stage renal disease; E44.0 Moderate protein-calorie malnutrition; I95.9 Hypotension, unspecified; I48.0 Paroxysmal atrial fibrillation; E83.41 Hypermagnesemia; D62 Acute posthemorrhagic anemia; I50.32 Chronic diastolic (congestive) heart failure; Z66 Do not resuscitate; D53.9 Nutritional anemia, unspecified; N28.1 Cyst of kidney, acquired; I15.0 Renovascular hypertension; Z96.643 Presence of artificial hip joint, bilateral; K44.9 Diaphragmatic hernia without obstruction or gangrene; E03.9 Hypothyroidism, unspecified; I25.10 Atherosclerotic heart disease of native coronary artery without angina pectoris; J44.9 Chronic obstructive pulmonary disease, unspecified; D72.810 Lymphocytopenia; Z51.5 Encounter for palliative care; F17.220 Nicotine dependence, chewing tobacco, uncomplicated; K21.9 Gastro-esophageal reflux disease without esophagitis; Z83.3 Family history of diabetes mellitus; Z82.49 Family history of ischemic heart disease and other diseases of the circulatory system; Z88.5 Allergy status to narcotic agent; Z99.2 Dependence on renal dialysis; Z88.0 Allergy status to penicillin; Z88.8 Allergy status to other drugs, medicaments and biological substances; Z91.09 Other allergy status, other than to drugs and biological substances; Z79.899 Other long term (current) drug therapy; Z95.5 Presence of coronary angioplasty implant and graft; Z82.5 Family history of asthma and other chronic lower respiratory diseases; Z83.49 Family history of other endocrine, nutritional and metabolic diseases; I25.2 Old myocardial infarction; Z91.81 History of falling; Z90.49 Acquired absence of other specified parts of digestive tract; Z87.81 Personal history of (healed) traumatic fracture; Z68.29 Body mass index [BMI] 29.0-29.9, adult

== ENCOUNTER → 2017-07-31 | Outpatient (CLI) | payer OTHER, MEDICAID ==
[~2017-07-31] MED LIST changes: +RENVELA800 MG PO; +VITAMIN D31000 UNI1 PO
== END | disposition home or self-care (01) ==
LOC: US 12:39
DX: I65.23 Occlusion and stenosis of bilateral carotid arteries (principal); I77.9 Disorder of arteries and arterioles, unspecified; I25.10 Atherosclerotic heart disease of native coronary artery without angina pectoris

== ENCOUNTER 2017-08-14 16:39 | Inpatient (IN) | payer OTHER, MEDICAID ==
[~2017-08-14] VITALS: Ht 139.7 cm; Wt 68.0 kg
[2017-08-14 16:39] VITALS: BP 144/66
[2017-08-14 17:20] LABS: HEMOGLOBIN 13.1 g/dl (12.0-16.0); MEAN CELL VOLUME 108.4 fl (81.0-99.0); MEAN CORPUSCULAR HGB 32.3 pg (27.0-31.0); MEAN CORPUSCULAR HGB CONC 29.8 g/dl (33.0-37.0); MEAN PLATELET VOLUME 11.1 fl (9.6-12.3); PLATELET COUNT AUTOMATED 219 10*3/uL (130-400); RED BLOOD COUNT 4.06 10*6/uL (4.10-5.10); RED CELL DISTRI WIDTH 14.5 % (0-14.5); WHITE BLOOD COUNT 14.2 10*3/uL (4.8-10.8)
[2017-08-14 17:30] LABS: ACT PARTIAL THROMBO TIME 25.1 SECONDS (20.8-31.5)
[2017-08-14 17:39] LABS: TOTAL CELLS COUNTED 100 #CELLS
[2017-08-14 17:40] LABS: PLATELET SUFFICIENCY NORMAL (NORMAL)
[2017-08-14 17:41] LABS: ALBUMIN 3.9 gm/dl (3.1-4.5); ALKALINE PHOSPHATASE 171 U/L (45-117); BUN 26 mg/dl (7-24); CHLORIDE 101 mmol/L (98-107); CREATININE 6.56 mg/dL (0.55-1.02); LIPASE 678 U/L (73-393); POTASSIUM 4.6 mmol/L (3.5-5.1); SGOT/AST 35 IU/L (3-35); SGPT/ALT 21 U/L (12-78); SODIUM 141 mmol/L (136-145); TOTAL PROTEIN 7.6 gm/dL (6.4-8.2)
[2017-08-14 17:42] LABS: TROPONIN I < 0.015 ng/ml (<0.045)
[2017-08-14 17:55] VITALS: BP 132/60
[2017-08-14 19:47] VITALS: BP 130/56
[2017-08-14 20:55] VITALS: BP 153/59
[2017-08-15] VITALS: BP 129/56
[2017-08-15 08:00] VITALS: BP 151/44
[2017-08-15 09:16] LABS: BASO % 0.5 % (0.0-1.0); EOS # 0.2 10*3/uL (0.0-0.4); EOS % 3.9 % (1.0-4.0); HEMOGLOBIN 11.4 g/dl (12.0-16.0); LYMPH # 1.1 10*3/uL (1.3-4.4); MEAN CELL VOLUME 106.3 fl (81.0-99.0); MEAN CORPUSCULAR HGB 32.8 pg (27.0-31.0); MEAN CORPUSCULAR HGB CONC 30.8 g/dl (33.0-37.0); MEAN PLATELET VOLUME 11.9 fl (9.6-12.3); MONO # 0.6 10*3/uL (0.1-1.0); MONO % 10.4 % (3.0-9.0); NEUT # 3.9 10*3/uL (2.3-7.9); NEUT % 66.7 % (47.0-73.0); PLATELET COUNT AUTOMATED 178 10*3/uL (130-400); RED BLOOD COUNT 3.48 10*6/uL (4.10-5.10); RED CELL DISTRI WIDTH 14.5 % (0-14.5); WHITE BLOOD COUNT 5.8 10*3/uL (4.8-10.8)
[2017-08-15 09:32] LABS: ALBUMIN 3.2 gm/dl (3.1-4.5); CREATININE 7.05 mg/dL (0.55-1.02); POTASSIUM 5.2 mmol/L (3.5-5.1); TOTAL PROTEIN 6.1 gm/dL (6.4-8.2)
[2017-08-15 10:28] VITALS: BP 164/64
[2017-08-15 11:05] LABS: BILIRUBIN NEGATIVE (NEGATIVE); BLOOD 2+ (NEGATIVE); CLARITY CLEAR (CLEAR); COLOR YELLOW (YELLOW); GLUCOSE NEGATIVE (NEGATIVE); KETONE NEGATIVE (NEGATIVE); LEUKO ESTERASE 1+ (NEGATIVE); NITRITE NEGATIVE (NEGATIVE); PH 8.5 (5.0-9.0); UROBILINOGEN 0.2 E.U./dl (0.2-1.0)
[2017-08-15 11:18] LABS: BACTERIA 2+; EPITHELIAL CELLS 16-20
[2017-08-15 12:00] VITALS: BP 140/56
[2017-08-15 16:00] VITALS: BP 140/78
[2017-08-15 20:00] VITALS: BP 152/67
[2017-08-16] VITALS: BP 139/57
[2017-08-16 07:44] LABS: BASO % 0.5 % (0.0-1.0); EOS # 0.3 10*3/uL (0.0-0.4); EOS % 4.7 % (1.0-4.0); HEMATOCRIT 34.9 % (37.0-47.0); HEMOGLOBIN 10.7 g/dl (12.0-16.0); LYMPH # 0.7 10*3/uL (1.3-4.4); LYMPH % 11.7 % (27.0-41.0); MEAN CELL VOLUME 106.4 fl (81.0-99.0); MEAN CORPUSCULAR HGB 32.6 pg (27.0-31.0); MEAN CORPUSCULAR HGB CONC 30.7 g/dl (33.0-37.0); MEAN PLATELET VOLUME 11.4 fl (9.6-12.3); MONO # 0.7 10*3/uL (0.1-1.0); MONO % 11.9 % (3.0-9.0); NEUT # 4.1 10*3/uL (2.3-7.9); PLATELET COUNT AUTOMATED 167 10*3/uL (130-400); RED BLOOD COUNT 3.28 10*6/uL (4.10-5.10); RED CELL DISTRI WIDTH 14.2 % (0-14.5); WHITE BLOOD COUNT 5.7 10*3/uL (4.8-10.8)
[2017-08-16 08:00] VITALS: BP 156/90
[2017-08-16 08:11] LABS: PHOSPHOROUS 4.3 mg/dL (2.5-4.9); POTASSIUM 4.7 mmol/L (3.5-5.1)
== END 2017-08-16 14:55 | disposition home or self-care (01) | DRG 391 ==
LOC: ED 16:39 → EDHOLD 18:16 → 5E 18:16
PROVIDERS: Emergency Medicine; Family Medicine Adult Medicine; Internal Medicine
PROC: 5A1D70Z Performance of Urinary Filtration, Intermittent, Less than 6 Hours Per Day (ICD-10-PCS; principal; 2017-08-15)
DX: K52.9 Noninfective gastroenteritis and colitis, unspecified (principal); N18.6 End stage renal disease; I13.2 Hypertensive heart and chronic kidney disease with heart failure and with stage 5 chronic kidney disease, or end stage renal disease; I48.0 Paroxysmal atrial fibrillation; J44.9 Chronic obstructive pulmonary disease, unspecified; I50.32 Chronic diastolic (congestive) heart failure; K57.90 Diverticulosis of intestine, part unspecified, without perforation or abscess without bleeding; E03.9 Hypothyroidism, unspecified; R74.0 Nonspecific elevation of levels of transaminase and lactic acid dehydrogenase [LDH]; D72.825 Bandemia; Z96.643 Presence of artificial hip joint, bilateral; Z66 Do not resuscitate; Z51.5 Encounter for palliative care; I25.10 Atherosclerotic heart disease of native coronary artery without angina pectoris; E55.9 Vitamin D deficiency, unspecified; Z87.19 Personal history of other diseases of the digestive system; Z91.81 History of falling; I25.2 Old myocardial infarction; Z90.49 Acquired absence of other specified parts of digestive tract; Z90.89 Acquired absence of other organs; Z99.2 Dependence on renal dialysis; Z95.5 Presence of coronary angioplasty implant and graft; Z82.49 Family history of ischemic heart disease and other diseases of the circulatory system; Z83.3 Family history of diabetes mellitus; Z84.1 Family history of disorders of kidney and ureter; Z88.0 Allergy status to penicillin; Z88.8 Allergy status to other drugs, medicaments and biological substances; Z91.040 Latex allergy status; Z79.899 Other long term (current) drug therapy; Z82.5 Family history of asthma and other chronic lower respiratory diseases; Z83.49 Family history of other endocrine, nutritional and metabolic diseases; Z72.0 Tobacco use

== ENCOUNTER 2017-10-31 17:13 | Inpatient (IN) | payer OTHER, MEDICAID ==
[~2017-10-31] VITALS: Ht 162.6 cm; Wt 54.7 kg
--- NOTE | ~2017-10-31 | PR ---
[place], [place] PROGRESS NOTE [id number] #: [id number] ROOM: 512 DOCTOR: OMAIRA SILVA MD,KELVIN BIRTHDATE: [birth year] DOS: 11/09/2017 SUBJECTIVE: The patient continued reduction in the coughing at this time, receiving hemodialysis. Denies symptoms of chest pain or acute shortness of breath. Denies abdominal pain. OBJECTIVE: VITAL SIGNS: Normal temperature, respiratory rate 19, heart rate 84, blood pressure 116/56. Pulse oxygen saturation on 2 liters nasal cannula 100% saturation. HEENT: Head was atraumatic. Eyes nonicterus. NECK: Supple. CARDIOVASCULAR: S1, S2 is audible. LUNGS: Noted without any wheeze or crackles. ABDOMEN: Soft, nontender. EXTREMITIES: Without any acute edema. IMPRESSION: Stable respiratory status was noted at the present time with improving tracheobronchitis and no other symptoms. PLAN OF MANAGEMENT: No changes in the plan of therapy. Continuation of current plan of management of the patient previously in progress. Usual care. KELVIN CASTANO MD CM:PNTRANS 1422 0 KELVIN SILVA MD 11/10/17 0100 interface
--- NOTE | ~2017-10-31 | PR ---
[place], [place] PROGRESS NOTE NAME: STEWART VELARDE [facility] #: [id number] UNIT #: [id number] ROOM: 512 DOCTOR: RONDA KNOWLES MD BIRTHDATE: [birth year] DOS: 11/09/2017 SUBJECTIVE: The patient was seen and examined. She had dialysis today. She tells me she wants to go home. She denies shortness of breath, nausea or vomiting. PHYSICAL EXAMINATION: VITAL SIGNS: Temperature 97.3, pulse 84, respiration rate 19, blood pressure 119/60. HEENT: Shows no JVD. LUNGS: Diminished breath sounds. No wheeze. HEART: Normal S1, S2. ABDOMEN: Soft, nontender. There is no organomegaly. EXTREMITIES: Showed no edema. SKIN: Showed no rash. LABORATORY DATA: Hemoglobin 9.8, white count of 6.1, platelets 97. BUN 47, creatinine 5.7, sodium 137, potassium 4.0, CO2 of 30, calcium 9.1. IMPRESSION: 1. End-stage renal disease, on hemodialysis Saturday, and Saturday. The patient will continue dialysis as per her normal schedule. 2. Anemia. Continue as needed erythropoietin stimulating agents with dialysis. 3. Thrombocytopenia. Follow platelet trends. 4. Atrial fibrillation. Management per Cardiology. She is on Eliquis. 5. Hypertension. Continue meds. RONDA KNOWLES MD CM:PNTRANS [id number] RONDA KNOWLES MD 11/09/17 1445 interface
--- NOTE | ~2017-10-31 | PR ---
[place], [place] PROGRESS NOTE NAME: STEWART VELARDE [facility] #: [id number] UNIT #: [id number] ROOM: 512 DOCTOR: OMAIRA SILVA MD,KELVIN BIRTHDATE: [birth year] DOS: 11/10/2017 SUBJECTIVE: She has been noted progressive improvement and resolution of the acute respiratory complaints and cough. Denies symptoms of chest pain. Denies symptoms of hemoptysis, acute shortness of breath at rest. General weakness, fatigue was noted. OBJECTIVE: VITAL SIGNS: Normal temperature, respirations 18, heart rate 96, blood pressure 140/59. Pulse ox saturation on 2 L nasal cannula 100% saturation of oxygen noted. HEENT: Age-related changes. NECK: Supple. CARDIOVASCULAR: S1, S2 audible. LUNGS: Without any wheeze or crackle at the present time. ABDOMEN: Soft, nontender. EXTREMITIES: Without any acute edema. IMPRESSION: The patient has been noted stable at this time with current medical management with resolving acute tracheobronchitis and exacerbation of chronic obstructive pulmonary disease/bronchial asthma. PLAN OF TREATMENT: No changes in plan of care. Continue current plan of the patient previously without changes. Usual care. Supportive plan of therapy and management. KELVIN CASTANO MD CM:PNTRANS [phone] KELVIN SILVA MD 11/10/172115 interface
--- NOTE | ~2017-10-31 | PR ---
[place], [place] PROGRESS NOTE NAME: STEWART VELARDE [facility] #: [id number] UNIT #: [id number] ROOM: 512 DOCTOR: ANDREW AGUAYO MD BIRTHDATE: [birth year] DOS: 11/06/2017 SUBJECTIVE: She is getting her aerosol treatment. She seems to be fairly tachypneic. She is due for dialysis tomorrow. She has not had any chest pain or palpitations. No dizziness. She says food was rather cold and poor. She did not enjoy it. She is very pleasant, alert. She is talking more than she did a few days ago. OBJECTIVE: VITAL SIGNS: Pulse is irregular and the heart rate is about 120 beats per minute, irregular. NECK: JVP is about 10-15 cm. EXTREMITIES: No edema in the lower extremities. LUNGS: Breath sounds are severely diminished with crackles. IMPRESSION: 1. Atrial fibrillation with rapid ventricular rate, which had been pretty decent a few days ago. 2. She has moderate degree of volume overload. This is probably because of renal failure. She is due to dialyze tomorrow and I think diastolic heart failure may also be contributing to this. RECOMMENDATIONS: 1. My recommendations are to decrease her dry weight by a couple of kilos if possible. 2. Atrial fibrillation with rapid rate. Metoprolol is being increased from 50 to 75 mg b.i.d. to tame the heart rate adequately. I saw this the patient on behalf of Dr. Elise. ANDREW AGUAYO MD CM:PNTRANS 32 02 ANDREW AGUAYO MD 11/06/172201 interface
--- NOTE | ~2017-10-31 | PR ---
[place], [place] PROGRESS NOTE [facility] [id number] UNIT #: [id number] ROOM: 512 DOCTOR: OMAIRA SILVA MD,KELVIN BIRTHDATE: [birth year] DOS: 11/11/2017 SUBJECTIVE: The patient has been noted comfortable at this time, awaiting Skilled Nurse Facility placement. Continue to show reduction and improvement in the respiratory symptom. Coughing and shortness of breath symptoms have been resolving; however, debility persisted. OBJECTIVE: VITAL SIGNS: Normal temperature, respiratory rate 18, heart rate 75, blood pressure 122/61. Pulse ox saturation on 2 liters nasal cannula 98% saturation. HEENT: Examination shows head was atraumatic. Eyes nonicterus. NECK: Supple. CARDIOVASCULAR: S1, S2 is audible. LUNGS: The patient was noted without any wheeze or crackles at the present time. ABDOMEN: Soft and nontender. EXTREMITIES: Without any acute edema. IMPRESSION: 1. The patient with resolving acute tracheobronchitis, exacerbation of chronic obstructive pulmonary disease/bronchial asthma progressively 2. End-stage renal failure, hemodialysis patient every Tuesdays, and Saturdays. PLAN OF TREATMENT: No changes in plan of care. Continuation with current plan of management is in progress with other changes to be made with the progression of illness. Transfer the patient to [facility] whenever desired. KELVIN CASTANO MD CM:PNTRANS [phone] KELVIN SILVA MD 11/11/17 1753 interface
--- NOTE | ~2017-10-31 | PR ---
[place], [place] PROGRESS NOTE NAME: STEWART VELARDE [facility] #: [id number] UNIT #: [id number] ROOM: 512 DOCTOR: RONDA KNOWLES MD BIRTHDATE: [birth year] DOS: 11/03/2017 SUBJECTIVE: The patient was seen and examined. She is awake, alert, sitting in a chair. She states she is feeling a little bit better. PHYSICAL EXAMINATION: VITAL SIGNS: Showed temperature 97.4, pulse 84, respiration 20, blood pressure 133/70. HEENT: Shows no JVD. LUNGS: Diminished breath sounds bilaterally. HEART: Normal S1, S2. No rub, thrill or gallop. ABDOMEN: Soft, nontender. There is no organomegaly. EXTREMITIES: Showed no edema. LABORATORY DATA: Hemoglobin 11.7, white count of 2.3, platelets 93. Sodium is 135, potassium 4.8, calcium 8.7, phosphorus 4.9, magnesium 2.6, albumin of 3.1, BUN 20, creatinine 4.6. ASSESSMENT AND PLAN: 1. End-stage renal disease, on hemodialysis Saturday, and Saturday. The patient's next dialysis will be on Saturday. 2. Pneumonia with influenza. Continue medications. Supportive care ongoing. Pulmonary is following the patient. 3. Anemia. Give as needed erythropoietin stimulating agents. 4. Thrombocytopenia and leukopenia. Continue to follow trends. RONDA KNOWLES MD CM:PNTRANS [phone] RONDA KNOWLES MD 11/03/171856 interface
--- NOTE | ~2017-10-31 | PR ---
[place], [place] PROGRESS NOTE NAME: STEWART VELARDE [facility] #: [id number] UNIT #: [id number] ROOM: 512 DOCTOR: ANDREW AGUAYO MD BIRTHDATE: [birth year] DOS: 11/03/2017 SUBJECTIVE: I am seeing this patient for Dr. Shepherd. She did not talk much 2 days ago when I saw her. Today she is more open. She has no chest pain or palpitation. She has a dry cough. She tells me that she had a major GI bleed many years ago while on blood thinner. Presumably, this was for atrial fibrillation. Her appetite is fine. Her mood is subdued. PHYSICAL EXAMINATION: GENERAL: The patient is quiet, pleasant, oriented. VITAL SIGNS: Pulse is irregular at 84, blood pressure 133/70. NECK: Normal JVP. LUNGS: She has crackles and some rhonchi in both lungs with reduced breath sounds, more so on the right side. EXTREMITIES: No edema in the lower extremities. IMPRESSION: This patient has chronic atrial fibrillation and from what I gather from the patient, warfarin or any other anticoagulant would be contraindicated. She has not had any embolic events from atrial fibrillation so far. No new recommendations. ANDREW AGUAYO MD CM:PNTRANS 1118 1303 ANDREW AGUAYO MD 11/03/17 1302 interface
--- NOTE | ~2017-10-31 | PR ---
[place], [place] PROGRESS NOTE NAME: STEWART VELARDE UNIT #: [id number] ROOM: 512 DOCTOR: KELVIN CORONA MD BIRTHDATE: [birth year] DOS: 11/05/2017 SUBJECTIVE: The patient was noted comfortable at this time without acute distress, resting on the bed. She was still noted symptoms of coughing has a bronchoscopy completed yesterday. The coughing has been decreased, but not completely resolved. She has not been noted symptoms of chest pain or any hemoptysis. The patient has been receiving hemodialysis this morning, as usual dialysis for today. OBJECTIVE: VITAL SIGNS: Which has been recorded shows the temperature noted as normal. The respiratory rate recorded 20. Heart rate 88, blood pressure 126/84. The pulse oxygen saturation of the patient recorded as 98% on half liter nasal cannula. HEENT: Examination shows no acute change. NECK: Supple. CARDIOVASCULAR: S1, S2 is audible. LUNGS: Noted with scattered crackles, no wheezing. ABDOMEN: Soft, nontender. Bowel sounds present. EXTREMITIES: Without any acute edema. MUSCULOSKELETAL: Without acute deformities. LABORATORY DATA: The influenza B was noted positive for respiratory viral panel which was sent out on 11/03/2017. Culture of the bronchial washing was noted, normal nilsa. Final cultures are still pending. Gram stain, moderate white blood cells with moderate epithelial cells, no organisms. IMPRESSION: 1. Acute tracheobronchitis, acute exacerbation of bronchial asthma still noted coughing. 2. Influenza B infection was also noted. The patient is noted to be treated with Tamiflu. PLAN OF MANAGEMENT: Continuation of the bronchodilators, oxygen supplementation, antibiotics. Changes in medical management based on progression of illness. No changes in dose of corticosteroids or other will be necessary. [place], [place] PROGRESS NOTE NAME: STEWART VELARDE UNIT #: [id number] ROOM: 512 DOCTOR: KELVIN CORONA MD BIRTHDATE: [birth year] KELVIN CASTANO MD CM:PNTRANS [phone] KELVIN SILVA MD 11/05/17 7566 interface
--- NOTE | ~2017-10-31 | PR ---
[place], [place] PROGRESS NOTE NAME: STEWART VELARDE [facility] #: [id number] UNIT #: [id number] ROOM: 512 DOCTOR: ANDREW AGUAYO MD BIRTHDATE: [birth year] DOS: 11/04/2017 SUBJECTIVE: She has a harsh cough, but is not expectorating any sputum. She is mildly short of breath. She needs to do dialyze tomorrow. There have not been any palpitations. She has no fever or chills. OBJECTIVE: GENERAL: She is rather underweight, slim VITAL SIGNS: The patient's pulse is irregular, as is heart rate. NECK: JVP is about 10-15 cm with positive AJR. EXTREMITIES: No edema in the lower extremities. LUNGS: Auscultation of the lungs reveals severely reduced breath sounds with inspiratory and expiratory wheezing, rhonchi and crackles. IMPRESSION: 1. This patient has severe chronic obstructive pulmonary disease with acute chest infection. 2. End-stage renal disease. She has some volume overload. 3. Chronic atrial fibrillation, with fairly good rate. I saw this patient on behalf of Dr. Elise. ANDREW AGUAYO MD CM:PNTRANS [phone] ANDREW AGUAYO MD 11/04/171931 interface
--- NOTE | ~2017-10-31 | PR ---
[place], [place] PROGRESS NOTE [id number] UN[facility] #: [id number] ROOM: 512 DOCTOR: OMAIRA SILVA MD,KELVIN BIRTHDATE: [birth year] DOS: 11/06/2017 SUBJECTIVE: She has been noted with reduction of symptoms of shortness of breath this morning. Coughing and wheezing, although resolution still noted incomplete, but noted better for the patient in the last couple of days. The bronchoscopy was done for the patient as well on 11/04/2017. She denies any symptoms of hemoptysis or any chest pain. OBJECTIVE: VITAL SIGNS: Normal temperature, respiratory rate 18, heart rate 84, blood pressure 115/84. The pulse oxygen saturation on 1-1/2 liter nasal cannula 97% saturation. HEENT: Examination shows head was atraumatic. Eyes nonicterus. NECK: Supple. CARDIOVASCULAR: S1, S2 is audible. LUNGS: Noted with mild expiratory wheezing with significant reduction and improvement noticed from previous exam. ABDOMEN: Soft, nontender. EXTREMITIES: Without acute edema. IMPRESSION: 1. Resolving acute tracheobronchitis with acute exacerbation of bronchial asthma, tracheobronchitis and influenza B infection. 2. Debility. 3. End-stage renal failure, on hemodialysis. PLAN OF MANAGEMENT: No changes in plan of therapy for this patient at this time. Continuation of the bronchodilators, and oxygen supplementation. The symptoms have been improving gradually, but not completely resolved. However, the dose of steroids could be decreased for this patient to b.i.d. dosing. KELVIN CASTANO MD CM:PNTRANS 1213 48 KELVIN SILVA MD 11/06/171848 interface
--- NOTE | ~2017-10-31 | PR ---
[place], [place] PROGRESS NOTE NAME: STEWART VELARDE [facility] #: [id number] UNIT #: [id number] ROOM: 512 DOCTOR: RONDA KNOWLES MD BIRTHDATE: [birth year] DOS: 11/10/2017 SUBJECTIVE: The patient was seen and evaluated. She is lying in bed. She is no acute distress. She is on nasal cannula. No noted events overnight. She seems to be comfortable and looks about the same. PHYSICAL EXAMINATION: VITAL SIGNS: Temperature 97.4, pulse 96, respiration 18, blood pressure 141/59. HEENT: Shows no JVD. LUNGS: Diminished breath sounds. No wheeze. HEART: Normal S1, S2. ABDOMEN: Soft, nontender. EXTREMITIES: Had no edema. SKIN: Showed no rash. LABORATORY DATA: From November 09: Hemoglobin 9.8. Creatinine 5.7, potassium 4.0, carbon dioxide 30. sodium 137. ASSESSMENT AND PLAN: 1. End-stage renal disease, on hemodialysis Saturday, and Saturday. The patient will have dialysis on Saturday and continue on her normal schedule. 2. Anemia. We will give as needed erythropoietin stimulating agents with dialysis. 3. Thrombocytopenia. Follow platelets. 4. Atrial fibrillation. Management per Cardiology. 5. Hypertension. Continue meds. RONDA KNOWLES MD CM:PNTRANS 1315 1741 RONDA KNOWLES MD 11/10/17 1740 interface
--- NOTE | ~2017-10-31 | PR ---
[place], [place] PROGRESS NOTE [id number] #: [id number] ROOM: 512 DOCTOR: OMAIRA SILVA MD,KELVIN BIRTHDATE: [birth year] DOS: 11/08/2017 PULMONARY PROGRESS NOTE SUBJECTIVE: She has not been noted in acute respiratory complaints. Coughing has been slowly resolving, not completely resolved. Currently being awaited for this patient for authorization and transfer to the alf facility. This morning, the patient was seen, she was comfortably sitting on the chair. She does not show any signs of respiratory distress. OBJECTIVE: VITAL SIGNS: Temperature noted normal, respiratory rate 18, heart rate 100, blood pressure of 160/82. Pulse oxygen saturation on 2 liters nasal cannula 98% saturation. HEENT: Examination shows head was atraumatic. Eyes nonicterus. NECK: Supple. CARDIOVASCULAR: S1, S2 audible. LUNGS: Noted without any wheezing or crackles at the present time. ABDOMEN: Soft, nontender. EXTREMITIES: Without any acute edema. LABORATORY DATA: BMP today: BUN 28 and creatinine 3.94. CBC: Normal WBC count. IMPRESSION: Resolving acute tracheobronchitis with exacerbation of bronchial asthma progressively. The patient was also noted influenza infection. The patient bronchitis, which has been already treated completely. PLAN OF MANAGEMENT: No change in pulmonary standpoint. Transfer the patient to the nursing facility whenever desired from the pulmonary standpoint. KELVIN CASTANO MD CM:PNTRANS 1121 1220 KELVIN SILVA MD 11/08/17 1218 interface
--- NOTE | ~2017-10-31 | PR ---
[place], [place] PROGRESS NOTE NAME: STEWART VELARDE [facility] #: [id number] UNIT #: [id number] ROOM: 512 DOCTOR: OMAIRA SILVA MD,KELVIN BIRTHDATE: [birth year] DOS: 11/07/2017 SUBJECTIVE: The patient continued to show reduction and improvement in the respiratory symptoms at this time. She has not been noted symptoms of chest pain or any hemoptysis. She has been receiving hemodialysis during this hospitalization for routine dialysis. OBJECTIVE: VITAL SIGNS: The patient showed normal temperature, respiratory rate 18, heart 110, blood pressure 129/73. Pulse oxygen saturation recorded on 2 liters nasal cannula 97% saturation. HEENT: Examination shows head was atraumatic. Eyes nonicterus. NECK: Supple. CARDIOVASCULAR: S1, S2 audible. LUNGS: The patient was noted without any wheeze or crackles at the present time. ABDOMEN: Soft and nontender. Bowel sounds present. EXTREMITIES: Without any acute edema. IMPRESSION: 1. The patient was noted progressive improvement and resolution of acute severe tracheobronchitis. 2. Influenza B infection, the patient already treated with antiviral therapy. 3. End-stage renal failure, on hemodialysis. PLAN OF MANAGEMENT: Decrease Solu-Medrol to 40 mg daily from today. The patient has been planned for a [facility] assessment and transfer. In the meantime, no other changes in the remaining medications will be necessary. KELVIN CASTANO MD CM:PNTRANS 1201 1349 KELVIN SILVA MD 11/07/17 1348 interface
--- NOTE | ~2017-10-31 | PROC NOTE ---
[place], [place] PROCEDURE NOTE [facility] [id number] UNIT #: [id number] ROOM: 512 DOCTOR: OMAIRA SILVA MD,KELVIN BIRTHDATE: [birth year] DOS: 11/04/2017 BRONCHOSCOPY NOTE PREOPERATIVE DIAGNOSIS: Persistent severe cough, nonresolving. POSTOPERATIVE DIAGNOSES: Evidence of severe impaction of mucus plugs with mucopurulent material noted in the endobronchial tree bilaterally with findings consistent with acute pneumonia would be considered as well with tracheobronchitis. A very friable mucosa was noted. PROCEDURE DESCRIPTION: Informed consent was obtained from the patient. The patient brought to the OR and placed in supine position. Conscious sedation was administered by the Anesthesia Department. After achieving proper sedation, airway introduced into the mouth. Bronchoscope advanced to the airway and into the laryngeal area. Epiglottis and vocal cords were seen. The bronchoscope was advanced to the vocal cord and tracheal lumen. The tracheal lumen was identified. The tracheal lumen was noted with a small amount of purulent secretion, which was suctioned out at the flora level. Right upper, right middle, right lower, left upper, lingula, and lower lobe bronchial all examined. Thick purulent secretion noticed causing lower lobe endobronchial tree subsegments as well as noted with severe inflammatory change in the lower lobe and in the endobronchial tree bilaterally. The secretion would clear out them, normal saline wash, sent for culture. Procedure was tolerated by the patient. No immediate change in the treatment at this time will be necessary. Modification in treatment will be done based on the progression of the illness. KELVIN CASTANO MD CM:PROCNOTE:PROCEDURE NOTE [phone] KELVIN SILVA MD
--- NOTE | ~2017-10-31 | PR ---
[place], [place] PROGRESS NOTE NAME: STEWART VELARDE [facility] #: [id number] UNIT #: [id number] ROOM: 512 DOCTOR: OSWALD GREENBERG MD BIRTHDATE: [birth year] DOS: 11/05/2017 SUBJECTIVE: The patient is very well known to me with history of renal failure, dialysis dependent and cardiac status appears to be stable. The patient was seen by Dr. Davis, who was covering me yesterday. The patient is followed by Dr. Mora because of severe COPD. The patient is undergoing dialysis today, blood pressure is stable. OBJECTIVE: VITAL SIGNS: Blood pressure is 123/70. The patient sinus tachycardia, rate of 117 beats per minute. HEAD AND NECK: Supple, no JVD. JVP is 10-15 cm. LUNGS: Diminished air entry bilaterally. The patient does have some expiratory wheezing. HEART: Heart sounds regular. LABORATORY DATA: Shows from yesterday, hemoglobin 11, hematocrit 35.7. Sodium 132, potassium 5.5, BUN 57, creatinine 7.6. IMPRESSION: The patient with volume overload, chronic renal failure, chronic obstructive pulmonary disease, influenza B, paroxysmal atrial fibrillation. RECOMMENDATIONS: Continue with the present care as ordered. Continue dialysis as ordered. The patient has severe COPD to follow up with Dr. Mora. The patient's atrial fibrillation, well-controlled response and we will follow up. OSWALD GREENBERG MD CM:PNTRANS 0727 0756 OSWALD GREENBERG MD 11/05/17 0755 interface
--- NOTE | ~2017-10-31 | CON ---
[place], [place] REPORT OF CONSULTATION NAME: STEWART VELARDE [facility] #: [id number] UNIT #: [id number] ROOM: 512 DOCTOR: KELVIN CORONA MD BIRTHDATE: [birth year] DOS: 11/01/2017 CONSULTATION REQUESTED BY: Hospitalist services. REASON FOR CONSULTATION: For the assessment of the patient for acute pneumonia and other abnormal respiratory symptoms. HISTORY OF PRESENT ILLNESS: History could not be obtained for the patient accurately, very limited history because of the patient's overall physical status. The history of the patient was obtained essentially from review of the medical record, documentation of the physicians and nurse's notes. This is a 77-year-old white female patient who has been brought to the hospital with history of end-stage renal failure. She has developed progressive chest congestion for the past couple of days. The symptoms have been noted gradually worsened, not resolving. She has a hemodialysis done in the morning prior to be assessed in the Emergency Room of the hospital. She was also noted with increased sleepiness at home with symptoms of shortness breath and also reported the current cough. There were no symptoms of wheezing reported. The patient has been assessed in the hospital and being treated for the acute pneumonia, which was considered. She has been receiving intravenous antibiotic. This morning, the patient noted awake and alert, noted the coughing with chest congestion upon assessment of the patient several times. REVIEW OF SYSTEMS: Could not be completed because of the patient's current overall medical status. PAST MEDICAL HISTORY: Reported and documented as: 1. Congestive heart failure, diastolic dysfunction. 2. Chronic obstructive pulmonary disease. 3. Coronary artery disease. 4. Diverticulosis. 5. End-stage renal failure, hemodialysis, Tuesdays, and Saturdays. 6. Hiatal hernia. 7. History of recurrent fall. 8. Past history of GI bleeding. 9. Hypothyroidism. 10. Paroxysmal atrial fibrillation. 11. Polycystic kidney disease. 12. Renovascular hypertension. 13. Vitamin D deficiency. PAST SURGICAL HISTORY: Reported: 1. Appendectomy. 2. Cholecystectomy. 3. Right leg ORIF for fracture. 4. Cardiac catheterization and coronary artery stent insertion. 5. Right hip replacement and left hip replacement. 6. Dialysis catheter insertion. SOCIAL HISTORY: The patient has not been noted any history of tobacco or [place], [place] REPORT OF CONSULTATION NAME: STEWART VELARDE [facility] #: [id number] UNIT #: [id number] ROOM: 512 DOCTOR: KELVIN CORONA MD BIRTHDATE: [birth year] illicit drug use. She has been noted history of chewing tobacco in the past since teenager. FAMILY HISTORY: Reported mother at age of 5656 years old after the patient has a trauma falling down from chair. The father at 60 years old due to complication of myocardial infarction. MEDICATIONS: The patient at the time of admission noted as use of Renvela, Pravachol, omeprazole, metoprolol succinate, lisinopril, levothyroxine, Imdur, and vitamin D. DRUG ALLERGIES: Reported: 1. IRON. 2. PENICILLINS. 3. DEMEROL. 4. NUBAIN. PHYSICAL EXAMINATION: GENERAL: This is a 77-year-old female who has been noted currently awake and alert without any acute distress. The patient has been using oxygen supplementation nasal cannula. Her height was recorded by the nursing staff as 5 feet 4 inches and weight 115 pounds, BMI 19.7. The patient appeared to be frail looking. VITAL SIGNS: The patient's temperature on admission oral 101 degree Fahrenheit, respiratory rate 18, heart rate of 100, blood pressure 134/67-113/62. The pulse ox saturation on room air was 92-95% saturation. HEENT: Head was atraumatic. Eyes nonicterus. NECK: Supple. CARDIOVASCULAR: S1, S2 is audible. LUNGS: Noted without any crackles, rhonchi, or wheezing at this time. Breaths are noted generally diminished bilaterally. ABDOMEN: Soft, flat, nontender. EXTREMITIES: Noted loss of muscle mass. There was no edema, clubbing or cyanosis. MUSCULOSKELETAL: Without any acute deformities. CENTRAL NERVOUS SYSTEM: The patient was moving upper and lower extremity,. On examination, they were noted limited. LABORATORY DATA: CBC on 11/01/2017; WBC count 3.0, hemoglobin 10.9, hematocrit 36.1, platelet count 89,000. The PT, PTT were noted as normal. CMP: Glucose 63, BUN 12, creatinine 4.17, CO2 of 34. IMPRESSION: 1. The patient was admitted to the hospital with fever, chest congestion, possible viral syndrome would be considered very likely, bacterial infection certainly cannot be completely excluded. 2. Elderly age, appeared to be quite frail for her age. 3. The patient with end-stage renal failure, hemodialysis as well. There was no finding of chronic obstructive pulmonary disease or bronchial asthma noted at the present time. [place], [place] REPORT OF CONSULTATION NAME: STEWART VELARDE UNIT #: [id number] ROOM: 512 DOCTOR: KELVIN CORONA MD BIRTHDATE: [birth year] PLAN OF MANAGEMENT: The patient has been started on the vancomycin, Levaquin, cefepime. Antibiotic would be quickly deescalated upon assessment of the culture results. Nasal washing for influenza antigen for this patient as well as the respiratory viral panel will be ordered. Empirical use of the antiviral treatment for the patient at this time until the influenza infection is excluded. Monitor temperature curve closely. Monitor cultures of the blood for the patient as well. She had not been able to expectorate sputum, so the sputum culture for the patient could not be done. Other supportive therapy, plan of management and treatment as well. However, the culture of the sputum will be ordered in case if the patient's expectorate sputum certainly could be sent for the culture. There was no evidence of pneumonia noted on the chest x-ray at this time. Other supportive therapy, plan of management and care plan. Usual treatment. Additional treatment changes to be made for this patient based on the progression of the illness. Thanks for allowing me to participate in the care of this patient. KELVIN CASTANO MD CM:CONSTR:REPORT OF CONSULTATION 1702 11/02/17 0550 interface
--- NOTE | ~2017-10-31 | PR ---
[place], [place] PROGRESS NOTE NAME: STEWART VELARDE UNIT #: [id number] ROOM: 512 DOCTOR: OMAIRA SILVA MD,KELVIN BIRTHDATE: [birth year] DOS: 11/04/2017 PULMONARY PROGRESS NOTE SUBJECTIVE: She has been noted persistent cough which has not been resolving and quite excessive with chest congestion. She has been noted quite frail, expectorates sputum. Shortness of breath has been noted intermittently. There were no symptoms of chest pain or hemoptysis reported by the patient. No edema or pain in lower extremity. The patient is receiving hemodialysis in this admission as ordered by the Nephrology Services. The patient is n.p.o. past midnight for bronchoscopy done today. Denies symptoms of headache or diplopia. Remaining systems were reviewed with the patient, they were noted all negative. PHYSICAL EXAMINATION: VITAL SIGNS: Normal temperature, respiratory rate 18, heart rate 92, blood pressure ____. Pulse oxygen saturation on 4 liters nasal cannula 98% saturation. HEENT: Examination shows head was atraumatic. Eyes nonicterus. NECK: Supple. CARDIOVASCULAR: S1, S2 is audible. LUNGS: The patient was noted without any wheeze or crackles at the present time. The breaths are noted mildly diminished bilaterally. ABDOMEN: Soft, nontender. EXTREMITIES: Without any acute edema. MUSCULOSKELETAL: Without any acute deformities. CENTRAL NERVOUS SYSTEM: Cranial nerves 2-12 intact. LABORATORY DATA: The patient's CBC that was done this morning, hemoglobin 11, WBC count normal, platelet count mildly decreased 95,000. CMP of the patient this morning, BUN 38, creatinine of 6.12. Glucose 159. Sodium 132. IMPRESSION: 1. The patient with ongoing severe cough, which has been noted with acute tracheobronchitis with history of end-stage renal failure, requiring hemodialysis on a regular basis. 2. Acute influenza infection as well. 3. Acute bronchial asthma exacerbation, persistent severe cough. 4. Thrombocytopenia was still noted. PLAN OF MANAGEMENT: Continuation of the current plan of care for the patient is in progress. Proceed with bronchoscopy as planned. Any modification in treatment for the patient necessary will be ordered after bronchoscopy. All other supportive plan of management and care. [place], [place] PROGRESS NOTE NAME: STEWART VELARDE UNIT #: [id number] ROOM: [facility] DOCTOR: KELVIN CORONA MD BIRTHDATE: [birth year] KELVIN CASTANO MD CM:PNTRANS 1130 [id number] KELVIN SILVA MD 11/05/17 0031 interface
--- NOTE | ~2017-10-31 | PR ---
[place], [place] PROGRESS NOTE NAME: STEWART VELARDE [facility] #: [id number] UNIT #: [id number] ROOM: 512 DOCTOR: OMAIRA SILVA MD,KELVIN BIRTHDATE: [birth year] DOS: 11/02/2017 PULMONARY PROGRESS NOTE SUBJECTIVE: The patient was seen on 11/02/2017 was noted comfortable at this time, severe excessive coughing noted without sputum expectoration, receiving hemodialysis this morning. Denies symptoms of chest pain or abdominal pain. The patient's cough has been noted without any sputum expectoration. Denies symptoms of nausea, vomiting or diarrhea. She denies symptoms of hemoptysis. She has been retested for influenza infection and noted positive nasal washing influenza B infection. She has not reported any symptoms of abdominal pain or headache. Remaining systems were reviewed. They were noted all negative. OBJECTIVE: VITAL SIGNS: For the patient, normal temperature, respiratory rate 20-22, heart rate 101-68, blood pressure 135/64-98/49. Her pulse oxygen saturation noted on room air 91% saturation. HEENT: Head was atraumatic. Eyes nonicterus. NECK: Supple. CARDIOVASCULAR: S1, S2 is audible. LUNGS: The patient was noted without any crackles. The expiratory wheezing was present. ABDOMEN: Soft, nontender. EXTREMITIES: Without any acute edema. MUSCULOSKELETAL: Without any acute deformities. CENTRAL NERVOUS SYSTEM: Cranial nerves 2-12 intact. ABDOMEN: Culture of the nasopharyngeal washing noted positive influenza B infection. LABORATORY DATA: The CBC of the patient today: WBC count 3.9, hemoglobin 11.2, hematocrit 37.2, platelet count 88,000. Renal function panel: BUN 26, creatinine of 6.56. Potassium 5.9. Blood cultures, no bacterial growth from 10/31/2017. IMPRESSION: 1. Acute influenza infection, viral bronchitis with acute exacerbation of bronchial asthma as well. 2. End-stage renal failure, on hemodialysis. 3. Leukopenia, secondary to current acute viral infection. 4. Thrombocytopenia, multifactorial. PLAN OF MANAGEMENT: Continue the antibiotic therapy, which has been adjusted due to kidney function. Continuation of the bronchodilators with oxygen supplementation as well. Continue anticoagulation until the night of Saturday evening. The patient was planned for the fiberoptic bronchoscopy that will be done on Saturday because of persistent severe coughing with mucous impaction of the airways. The other supportive therapy, plan of management to continue. Usual treatment with other additional treatment changes to be made [place], [place] PROGRESS NOTE [facility]DE [facility] [id number] UNIT #: [id number] ROOM: 512 DOCTOR: OMAIRA SILVA MD,KELVIN BIRTHDATE: [birth year] based on progression of illness. The patient has been currently getting the Levaquin and the vancomycin that might need to be discontinued for the patient based on the final culture results and adjustments to be done accordingly. KELVIN CASTANO MD CM:PNTRANS 49 1 KELVIN SILVA MD 11/03/17220 interface
--- NOTE | ~2017-10-31 | PR ---
[place], [place] PROGRESS NOTE NAME: STEWART VELARDE [facility] #: [id number] UNIT #: [id number] ROOM: 512 DOCTOR: BENSON MCCRARY,RONDA Farrell BIRTHDATE: [birth year] DOS: SUBJECTIVE: The patient was seen and examined. She is lying in bed. She is on nasal cannula. She was in no acute distress. No major events were noted. No major change in status. PHYSICAL EXAMINATION: VITAL SIGNS: Temperature 98.1, pulse , respiration 22, blood pressure 135/64. HEENT: She has no JVD. LUNGS: Diminished breath sounds. HEART: Normal S1, S2. ABDOMEN: Soft, nontender. EXTREMITIES: Showed no edema. SKIN: Showed no rash. LABORATORY DATA: Blood cultures from October 31 showed no growth. BUN 26, creatinine 6.6, sodium 136, potassium of 5.9, CO2 25, magnesium 2.4, phosphorus 4.5, hemoglobin 11.2, white count of 3.9, platelets 88. IMPRESSION AND PLAN: 1. End-stage renal disease, on hemodialysis Saturday, and Saturday. The patient's next dialysis will be on Saturday. 2. Pneumonia with influenza. Continue treatment. Pulmonary is following the patient. Supportive care ongoing. 3. Anemia. H and H is at target. We will give as needed erythropoietin stimulating agents. 4. Thrombocytopenia. Follow. RONDA KNOWLES MD CM:PNTRANS 11 45 RONDA KNOWLES MD 11/02/17 1645 interface
--- NOTE | ~2017-10-31 | PR ---
[place], [place] PROGRESS NOTE NAME: STEWART VELARDE [facility] #: [id number] UNIT #: [id number] ROOM: 512 DOCTOR: ANDREW AGUAYO MD BIRTHDATE: [birth year] DOS: 11/09/2017 SUBJECTIVE: She is not short of breath, but has a harsh cough and chest seems . She does not have chronic cough. She has no fever or chills. There are no palpitations. Her appetite is reasonable and she has been dialyzing. PHYSICAL EXAMINATION: GENERAL: This is a patient who is pleasant, alert. She is very comfortable. She is talking nicely now, which she barely did when she arrived in the hospital. Complexion is fine. VITAL SIGNS: Pulses irregular at 88, blood pressure 109/61. NECK: JVP is normal. LUNGS: She has lot of rhonchi in both lungs. EXTREMITIES: Very little edema in the lower extremities. IMPRESSION: 1. Atrial fibrillation with controlled rate. 2. Chronic kidney disease. She seemed to be euvolemic at this time. No new recommendations. ANDREW AGUAYO MD CM:PNTRANS [phone] 3 ANDREW AGUAYO MD 11/09/17 0913 interface
--- NOTE | ~2017-10-31 | CON ---
[place], [place] REPORT OF CONSULTATION NAME: STEAWRT VELARDE [facility] #: [id number] UNIT #: [id number] ROOM: 512 DOCTOR: ANDREW AGUAYO MD BIRTHDATE: [birth year] DOS: HISTORY OF PRESENT ILLNESS: This is a 77-year-old -[place] woman with a history of coronary artery disease. She had coronary artery stents deployed in [place] many years ago. She has essential hypertension and has had paroxysmal atrial fibrillation. The ECGs here have shown atrial fibrillation and normal sinus rhythm. An EKG read in July of this year was read as normal sinus rhythm. She has end-stage renal disease, resulting from polycystic kidney disease and has been dialyzing for many years now. She has had heart failure, COPD. She has had cholecystectomy, hysterectomy, appendectomy, hypothyroidism and has AV fistula for dialysis. She had a negative Cardiolite study 4 years ago and an echocardiogram in [address] Shepherd. EF was 55%. She was admitted to the hospital because of chest congestion and cough for a few days' duration. She had noticed some shortness of breath, but did not have any fever or chills. No nausea or vomiting. Her appetite has been as usual. She has been dialyzing regularly. No PND, orthopnea, or swelling of the lower extremities. HOME MEDICATIONS: Cholecalciferol, levothyroxine, omeprazole, pravastatin 40 daily, lisinopril 10 daily, Imdur 30 mg q.a.m., metoprolol succinate 50 mg b.i.d., and Renvela 800 mg t.i.d. and omeprazole 20 mg daily. PHYSICAL EXAMINATION: GENERAL: This reveals a patient who is very quiet, does not want to talk, but on insisting she did answer my questions. She is not in any distress. She looks pale. VITAL SIGNS: Pulse is irregular at 96 beats per minute, blood pressure 110/56. NECK: JVP is normal. AJR is negative. CARDIAC: Auscultation reveals no obvious murmurs. There is no edema in the lower extremities. RESPIRATORY: Breath sounds are fairly decent with some rhonchi and a few crackles in both lungs. DIAGNOSTIC STUDIES: ECG showed atrial fibrillation with no ischemic changes. Troponin I level is normal. Chest x-ray did not demonstrate any acute changes. ASSESSMENT: 1. Coronary artery disease. This is asymptomatic. 2. End-stage renal disease. She is dialyzing now. At this time seems to be euvolemic. I am not sure if there was any contraindication to use of anticoagulation. If there is none, she should be chronically anticoagulated. Her CHADS score is significantly high risk, i.e. risk of embolic event is significant. I thank you on behalf of ____ for this consult. [place], [place] REPORT OF CONSULTATION NAME: STEWART VEALRDE Cristin UNIT #: [id number] ROOM: 512 DOCTOR: ANDREW AGUAYO MD BIRTHDATE: [birth year] ANDREW AGUAYO MD CM:CONSTR:REPORT OF CONSULTATION 1028 11/02/17 1128 interface
--- NOTE | ~2017-10-31 | PR ---
[place], [place] PROGRESS NOTE NAME: STEWART VELARDE [facility] #: [id number] UNIT #: [id number] ROOM: 512 DOCTOR: OSWALD GREENBERG MD BIRTHDATE: [birth year] DOS: 11/08/2017 SUBJECTIVE: The patient is alert, awake, and responsive. Complains of some coughing. No chest discomfort. Shortness of breath is much better. OBJECTIVE: VITAL SIGNS: Blood pressure is 150/70. HEENT: Unremarkable. NECK: Supple. No JVD. LUNGS: Diminished air entry. Few coarse rhonchi. HEART: Sounds are regular. ABDOMEN: Soft, nontender. EXTREMITIES: No edema. NEUROLOGIC: Stable. LABORATORY DATA: Sodium 138, potassium 3.6, creatinine is 3.9, hemoglobin 10.8, hematocrit 34.7. IMPRESSION AND PLAN: The patient is admitted with septicemia, influenza B, paroxysmal atrial fibrillation, chronic obstructive pulmonary disease, hypertension, hyperlipidemia, and coronary artery disease. Cardiac status is stable. She has end-stage renal disease and fluid overload. Continue dialysis and we will follow up. OSWALD GREENBERG MD CM:PNTRANS 1030 1103 OSWALD GREENBERG MD 11/08/17 1102 interface
--- NOTE | ~2017-10-31 | PR ---
[place], [place] PROGRESS NOTE NAME: STEWART VELARDE [facility] #: [id number] UNIT #: [id number] ROOM: 512 DOCTOR: ANDREW AGUAYO MD BIRTHDATE: [birth year] DOS: 11/10/2017 SUBJECTIVE: She still has a harsh cough with some whitish sputum being expectorated. No hemoptysis. She has some pain when she coughs. No palpitations, dizziness. She is not particularly short of breath. Her appetite has been reasonable. PHYSICAL EXAMINATION: GENERAL: This is a patient who is pleasant. Her complexion is fine. VITAL SIGNS: Temperature is normal, pulse is irregular at 96 beats per minute, blood pressure 141/59. NECK: JVP is normal. AJR is negative. LUNGS: She has a lot of crackles ____ inspiration and expiration with reduced breath sounds. BACK: She has kyphosis. EXTREMITIES: No edema in the lower extremities. ABDOMEN: Examination of the abdomen reveals mild epigastric tenderness with no guarding or rigidity. Bowel sounds are normal (she has been complaining of vague epigastric pain for a day or two). LABORATORY DATA: Monitor shows atrial fibrillation with rate between 90 and 100. IMPRESSION: 1. Chronic atrial fibrillation with reasonably controlled ventricular rate. 2. End-stage renal disease with euvolemic state today. PLAN: No new recommendations. ANDREW AGUAYO MD CM:PNTRANS 0955 1005 ANDREW AGUAYO MD 11/10/17 1004 interface
[2017-10-31 17:20] VITALS: BP 134/67
[2017-10-31 19:14] LABS: BASO % 0.5 % (0.0-1.0); EOS % 0.3 % (1.0-4.0); HEMATOCRIT 36.8 % (37.0-47.0); HEMOGLOBIN 11.5 g/dl (12.0-16.0); LYMPH # 0.3 10*3/uL (1.3-4.4); LYMPH % 7.4 % (27.0-41.0); MEAN CELL VOLUME 101.1 fl (81.0-99.0); MEAN CORPUSCULAR HGB 31.6 pg (27.0-31.0); MEAN CORPUSCULAR HGB CONC 31.3 g/dl (33.0-37.0); MEAN PLATELET VOLUME 12.2 fl (9.6-12.3); MONO # 0.5 10*3/uL (0.1-1.0); MONO % 13.7 % (3.0-9.0); NEUT % 77.8 % (47.0-73.0); PLATELET COUNT AUTOMATED 98 10*3/uL (130-400); RED BLOOD COUNT 3.64 10*6/uL (4.10-5.10); RED CELL DISTRI WIDTH 15.2 % (0-14.5); WHITE BLOOD COUNT 3.8 10*3/uL (4.8-10.8)
[2017-10-31 19:29] LABS: ALBUMIN 3.5 gm/dl (3.1-4.5); CREATININE 3.7 mg/dL (0.55-1.02); POTASSIUM 4.1 mmol/L (3.5-5.1); TOTAL PROTEIN 6.4 gm/dL (6.4-8.2)
[2017-10-31 20:02] VITALS: BP 117/58
[2017-10-31 20:33] LABS: BILIRUBIN NEGATIVE (NEGATIVE); BLOOD 2+ (NEGATIVE); CLARITY CLOUDY (CLEAR); COLOR YELLOW (YELLOW); GLUCOSE 1+ (NEGATIVE); KETONE NEGATIVE (NEGATIVE); LEUKO ESTERASE 2+ (NEGATIVE); NITRITE NEGATIVE (NEGATIVE); PH >= 9.0 (5.0-9.0); SPECIFIC GRAVITY 1.015 (1.005-1.030); UROBILINOGEN 0.2 E.U./dl (0.2-1.0)
[2017-10-31 20:41] LABS: BACTERIA 2+; EPITHELIAL CELLS 0-2; WBC TNTC wbc/hpf (0-5)
[2017-10-31 21:11] VITALS: BP 86/43
[2017-11-01] VITALS (8 sets, daily range): BP systolic 103–135; BP diastolic 48–72
[2017-11-01 03:09] LABS: BASO # 0.1 10*3/uL (0.0-0.1); BASO % 1.7 % (0.0-1.0); EOS % 0.7 % (1.0-4.0); HEMATOCRIT 36.1 % (37.0-47.0); HEMOGLOBIN 10.9 g/dl (12.0-16.0); LYMPH # 0.6 10*3/uL (1.3-4.4); LYMPH % 18.2 % (27.0-41.0); MEAN CORPUSCULAR HGB 31.5 pg (27.0-31.0); MEAN CORPUSCULAR HGB CONC 30.2 g/dl (33.0-37.0); MEAN PLATELET VOLUME 12.2 fl (9.6-12.3); MONO # 0.4 10*3/uL (0.1-1.0); MONO % 13.2 % (3.0-9.0); NEUT % 65.9 % (47.0-73.0); PLATELET COUNT AUTOMATED 89 10*3/uL (130-400); RED BLOOD COUNT 3.46 10*6/uL (4.10-5.10); RED CELL DISTRI WIDTH 15.3 % (0-14.5)
[2017-11-01 03:22] LABS: MEAN CELL VOLUME 104.3 fl (81.0-99.0)
[2017-11-01 03:25] LABS: ACT PARTIAL THROMBO TIME 25.5 SECONDS (20.8-31.5); INTERNATIONAL NORM RATIO 1.1 (2.0-3.5)
[2017-11-01 03:39] LABS: ALBUMIN 3.1 gm/dl (3.1-4.5); CREATININE 4.17 mg/dL (0.55-1.02); PHOSPHOROUS 2.8 mg/dL (2.5-4.9)
[2017-11-01 03:45] LABS: FREE T4 1.22 ng/dl (0.76-1.46); THYROID STIM HORMONE (HS) 1.13 uIU/ml (0.358-4.75)
[2017-11-02] VITALS (10 sets, daily range): BP systolic 98–135; BP diastolic 49–69
[2017-11-02 07:14] LABS: HEMATOCRIT 37.3 % (37.0-47.0); HEMOGLOBIN 11.2 g/dl (12.0-16.0); MEAN CORPUSCULAR HGB 30.9 pg (27.0-31.0); MEAN PLATELET VOLUME 13.1 fl (9.6-12.3); PLATELET COUNT AUTOMATED 88 10*3/uL (130-400); RED BLOOD COUNT 3.62 10*6/uL (4.10-5.10); RED CELL DISTRI WIDTH 15.3 % (0-14.5); WHITE BLOOD COUNT 3.9 10*3/uL (4.8-10.8)
[2017-11-02 08:02] LABS: PLATELET SUFFICIENCY LOW (NORMAL); TOTAL CELLS COUNTED 100 #CELLS
[2017-11-02 10:06] LABS: CREATININE 6.56 mg/dL (0.55-1.02)
[2017-11-02 10:07] LABS: PHOSPHOROUS 4.5 mg/dL (2.5-4.9)
[2017-11-02 10:08] LABS: POTASSIUM 5.9 mmol/L (3.5-5.1)
[2017-11-03] VITALS: BP 120/71
[2017-11-03 06:41] LABS: HEMATOCRIT 38.2 % (37.0-47.0); HEMOGLOBIN 11.7 g/dl (12.0-16.0); LYMPH # 0.4 10*3/uL (1.3-4.4); LYMPH % 18.9 % (27.0-41.0); MEAN CORPUSCULAR HGB 31.5 pg (27.0-31.0); MEAN CORPUSCULAR HGB CONC 30.6 g/dl (33.0-37.0); MEAN PLATELET VOLUME 12.8 fl (9.6-12.3); MONO # 0.1 10*3/uL (0.1-1.0); MONO % 4.8 % (3.0-9.0); NEUT # 1.7 10*3/uL (2.3-7.9); NEUT % 75.9 % (47.0-73.0); PLATELET COUNT AUTOMATED 93 10*3/uL (130-400); RED BLOOD COUNT 3.71 10*6/uL (4.10-5.10); WHITE BLOOD COUNT 2.3 10*3/uL (4.8-10.8)
[2017-11-03 06:52] LABS: ALBUMIN 3.1 gm/dl (3.1-4.5)
[2017-11-03 06:56] LABS: CREATININE 4.61 mg/dL (0.55-1.02); PHOSPHOROUS 4.9 mg/dL (2.5-4.9); TOTAL PROTEIN 6.1 gm/dL (6.4-8.2)
[2017-11-03 07:04] LABS: POTASSIUM 4.8 mmol/L (3.5-5.1)
[2017-11-03 08:00] VITALS: BP 133/70
[2017-11-03 12:00] VITALS: BP 143/55
[2017-11-03 16:00] VITALS: BP 132/78
[2017-11-03 20:00] VITALS: BP 136/79
[2017-11-04] VITALS (8 sets, daily range): BP systolic 11–134; BP diastolic 65–81
[2017-11-04 05:57] LABS: HEMATOCRIT 35.7 % (37.0-47.0); MEAN CELL VOLUME 101.4 fl (81.0-99.0); MEAN CORPUSCULAR HGB 31.3 pg (27.0-31.0); MEAN CORPUSCULAR HGB CONC 30.8 g/dl (33.0-37.0); MEAN PLATELET VOLUME 11.9 fl (9.6-12.3); PLATELET COUNT AUTOMATED 95 10*3/uL (130-400); RED BLOOD COUNT 3.52 10*6/uL (4.10-5.10); WHITE BLOOD COUNT 7.9 10*3/uL (4.8-10.8)
[2017-11-04 06:11] LABS: ALBUMIN 3.1 gm/dl (3.1-4.5); CREATININE 6.12 mg/dL (0.55-1.02); POTASSIUM 4.7 mmol/L (3.5-5.1)
[2017-11-04 07:09] LABS: PLATELET SUFFICIENCY LOW (NORMAL); TOTAL CELLS COUNTED 100 #CELLS
[2017-11-05] VITALS: BP 123/67
[2017-11-05 01:04] LABS: ADENOVIRUS Negative (Negative); INFLUENZA A Negative (Negative); INFLUENZA B Positive (Negative); METAPNEUMOVIRUS Negative (Negative); PARAINFLUENZA 1 Negative (Negative); PARAINFLUENZA 2 Negative (Negative); PARAINFLUENZA 3 Negative (Negative); RHINOVIRUS Negative (Negative); RSV A Negative (Negative); RSV B Negative (Negative)
[2017-11-05 06:09] LABS: HEMATOCRIT 35.3 % (37.0-47.0); HEMOGLOBIN 11.1 g/dl (12.0-16.0); MEAN CELL VOLUME 100.3 fl (81.0-99.0); MEAN CORPUSCULAR HGB 31.5 pg (27.0-31.0); MEAN CORPUSCULAR HGB CONC 31.4 g/dl (33.0-37.0); MEAN PLATELET VOLUME 12.4 fl (9.6-12.3); PLATELET COUNT AUTOMATED 99 10*3/uL (130-400); RED BLOOD COUNT 3.52 10*6/uL (4.10-5.10); WHITE BLOOD COUNT 8.8 10*3/uL (4.8-10.8)
[2017-11-05 06:22] LABS: CREATININE 7.65 mg/dL (0.55-1.02); PHOSPHOROUS 5.3 mg/dL (2.5-4.9); POTASSIUM 5.5 mmol/L (3.5-5.1)
[2017-11-05 07:28] LABS: BURR CELLS FEW; PLATELET SUFFICIENCY LOW (NORMAL); POLYCHROMASIA SLIGHT; TOTAL CELLS COUNTED 100 #CELLS
[2017-11-05 08:00] VITALS: BP 126/84
[2017-11-05 12:00] VITALS: BP 136/76
[2017-11-05 15:07] LABS: ACID FAST SPEC PROCESSING Concentration (.)
[2017-11-05 16:00] VITALS: BP 125/54; BP 91/39
[2017-11-05 20:00] VITALS: BP 146/71
[2017-11-06 00:29] VITALS: BP 130/79
[2017-11-06 06:58] LABS: HEMATOCRIT 35.7 % (37.0-47.0); LYMPH # 0.4 10*3/uL (1.3-4.4); MEAN CELL VOLUME 101.7 fl (81.0-99.0); MEAN CORPUSCULAR HGB 31.3 pg (27.0-31.0); MEAN CORPUSCULAR HGB CONC 30.8 g/dl (33.0-37.0); MEAN PLATELET VOLUME 12.2 fl (9.6-12.3); MONO # 0.3 10*3/uL (0.1-1.0); MONO % 3.9 % (3.0-9.0); NEUT # 5.7 10*3/uL (2.3-7.9); NEUT % 89.6 % (47.0-73.0); PLATELET COUNT AUTOMATED 94 10*3/uL (130-400); RED BLOOD COUNT 3.51 10*6/uL (4.10-5.10); RED CELL DISTRI WIDTH 14.9 % (0-14.5); WHITE BLOOD COUNT 6.4 10*3/uL (4.8-10.8)
[2017-11-06 07:18] LABS: CREATININE 4.39 mg/dL (0.55-1.02); POTASSIUM 4.7 mmol/L (3.5-5.1)
[2017-11-06 08:00] VITALS: BP 159/84
[2017-11-06 12:00] VITALS: BP 154/82
[2017-11-06 16:00] VITALS: BP 132/87
[2017-11-06 20:00] VITALS: BP 147/84
[2017-11-07] VITALS: BP 112/62
[2017-11-07 07:25] LABS: HEMATOCRIT 35.5 % (37.0-47.0); HEMOGLOBIN 11.1 g/dl (12.0-16.0); LYMPH # 0.3 10*3/uL (1.3-4.4); LYMPH % 5.2 % (27.0-41.0); MEAN CELL VOLUME 100.3 fl (81.0-99.0); MEAN CORPUSCULAR HGB 31.4 pg (27.0-31.0); MEAN CORPUSCULAR HGB CONC 31.3 g/dl (33.0-37.0); MEAN PLATELET VOLUME 11.5 fl (9.6-12.3); MONO # 0.4 10*3/uL (0.1-1.0); MONO % 6.3 % (3.0-9.0); NEUT # 5.6 10*3/uL (2.3-7.9); NEUT % 88.2 % (47.0-73.0); PLATELET COUNT AUTOMATED 97 10*3/uL (130-400); RED BLOOD COUNT 3.54 10*6/uL (4.10-5.10); RED CELL DISTRI WIDTH 14.9 % (0-14.5); WHITE BLOOD COUNT 6.3 10*3/uL (4.8-10.8)
[2017-11-07 07:35] LABS: CREATININE 5.97 mg/dL (0.55-1.02); POTASSIUM 5.1 mmol/L (3.5-5.1)
[2017-11-07 08:00] VITALS: BP 129/73
[2017-11-07 16:00] VITALS: BP 144/64
[2017-11-07 20:00] VITALS: BP 151/76
[2017-11-08] VITALS: BP 150/74
[2017-11-08 06:39] LABS: CREATININE 3.94 mg/dL (0.55-1.02)
[2017-11-08 06:41] LABS: POTASSIUM 3.6 mmol/L (3.5-5.1)
[2017-11-08 06:42] LABS: EOS % 0.3 % (1.0-4.0); HEMATOCRIT 34.7 % (37.0-47.0); HEMOGLOBIN 10.8 g/dl (12.0-16.0); LYMPH # 0.8 10*3/uL (1.3-4.4); LYMPH % 11.6 % (27.0-41.0); MEAN CORPUSCULAR HGB 31.1 pg (27.0-31.0); MEAN CORPUSCULAR HGB CONC 31.1 g/dl (33.0-37.0); MEAN PLATELET VOLUME 12.4 fl (9.6-12.3); MONO # 0.7 10*3/uL (0.1-1.0); MONO % 9.7 % (3.0-9.0); NEUT # 5.6 10*3/uL (2.3-7.9); PLATELET COUNT AUTOMATED 101 10*3/uL (130-400); RED BLOOD COUNT 3.47 10*6/uL (4.10-5.10); RED CELL DISTRI WIDTH 14.9 % (0-14.5); WHITE BLOOD COUNT 7.2 10*3/uL (4.8-10.8)
[2017-11-08 08:00] VITALS: BP 160/82
[2017-11-08 12:00] VITALS: BP 134/79
[2017-11-08 16:00] VITALS: BP 126/65
[2017-11-08 20:00] VITALS: BP 109/53
[2017-11-09] VITALS: BP 109/61
[2017-11-09 06:57] LABS: EOS % 0.3 % (1.0-4.0); HEMATOCRIT 31.8 % (37.0-47.0); HEMOGLOBIN 9.8 g/dl (12.0-16.0); LYMPH # 0.8 10*3/uL (1.3-4.4); LYMPH % 12.7 % (27.0-41.0); MEAN CORPUSCULAR HGB 31.1 pg (27.0-31.0); MEAN CORPUSCULAR HGB CONC 30.8 g/dl (33.0-37.0); MEAN PLATELET VOLUME 12.2 fl (9.6-12.3); MONO # 0.6 10*3/uL (0.1-1.0); MONO % 10.2 % (3.0-9.0); NEUT # 4.6 10*3/uL (2.3-7.9); PLATELET COUNT AUTOMATED 97 10*3/uL (130-400); RED BLOOD COUNT 3.15 10*6/uL (4.10-5.10); RED CELL DISTRI WIDTH 14.8 % (0-14.5); WHITE BLOOD COUNT 6.1 10*3/uL (4.8-10.8)
[2017-11-09 07:06] LABS: CREATININE 5.65 mg/dL (0.55-1.02)
[2017-11-09 08:00] VITALS: BP 116/56
[2017-11-09 12:00] VITALS: BP 119/60
[2017-11-09 16:21] VITALS: BP 139/69
[2017-11-09 20:50] VITALS: BP 141/72
[2017-11-10] VITALS: BP 135/63
[2017-11-10 08:00] VITALS: BP 141/59
[2017-11-10 12:00] VITALS: BP 142/72
[2017-11-10 16:05] VITALS: BP 134/66
[2017-11-10 20:18] VITALS: BP 137/96
[2017-11-11] VITALS: BP 130/66
[2017-11-11 07:34] LABS: EOS # 0.1 10*3/uL (0.0-0.4); HEMATOCRIT 33.1 % (37.0-47.0); HEMOGLOBIN 10.2 g/dl (12.0-16.0); LYMPH # 0.8 10*3/uL (1.3-4.4); LYMPH % 12.1 % (27.0-41.0); MEAN CELL VOLUME 100.9 fl (81.0-99.0); MEAN CORPUSCULAR HGB 31.1 pg (27.0-31.0); MEAN CORPUSCULAR HGB CONC 30.8 g/dl (33.0-37.0); MEAN PLATELET VOLUME 10.5 fl (9.6-12.3); MONO # 0.6 10*3/uL (0.1-1.0); MONO % 9.1 % (3.0-9.0); NEUT # 4.8 10*3/uL (2.3-7.9); NEUT % 77.3 % (47.0-73.0); PLATELET COUNT AUTOMATED 119 10*3/uL (130-400); RED BLOOD COUNT 3.28 10*6/uL (4.10-5.10); RED CELL DISTRI WIDTH 14.6 % (0-14.5); WHITE BLOOD COUNT 6.3 10*3/uL (4.8-10.8)
[2017-11-11 07:45] LABS: CREATININE 5.17 mg/dL (0.55-1.02); PHOSPHOROUS 3.8 mg/dL (2.5-4.9); POTASSIUM 4.2 mmol/L (3.5-5.1)
[2017-11-11 08:00] VITALS: BP 122/61
[2017-11-11] MEDS ORDERED: MUCINEX ER600 MG PO (10:58)
[2017-11-11] MEDS ORDERED: PREDNISONE10 MG PO (10:58)
[2017-11-11] MEDS ORDERED: METOPROLOL SUCC25 M2 PO (10:58)
[2017-11-11] MEDS ORDERED: ELIQUIS5 M1 PO (10:58)
== END 2017-11-11 13:25 | disposition other institution (70) | DRG 871 ==
LOC: ED 17:13 → EDHOLD 19:55 → 5E 19:55
PROVIDERS: Emergency Medicine; Family Medicine; Internal Medicine; Internal Medicine Critical Care Medicine; Internal Medicine Hospice and Palliative Medicine
DX: A41.9 Sepsis, unspecified organism (principal); N18.6 End stage renal disease; I13.2 Hypertensive heart and chronic kidney disease with heart failure and with stage 5 chronic kidney disease, or end stage renal disease; J10.00 Influenza due to other identified influenza virus with unspecified type of pneumonia; T17.590A Other foreign object in bronchus causing asphyxiation, initial encounter; T17.490A Other foreign object in trachea causing asphyxiation, initial encounter; D69.6 Thrombocytopenia, unspecified; I48.0 Paroxysmal atrial fibrillation; I50.32 Chronic diastolic (congestive) heart failure; J44.0 Chronic obstructive pulmonary disease with (acute) lower respiratory infection; N39.0 Urinary tract infection, site not specified; Q61.3 Polycystic kidney, unspecified; J44.1 Chronic obstructive pulmonary disease with (acute) exacerbation; J45.51 Severe persistent asthma with (acute) exacerbation; I48.2 Chronic atrial fibrillation; D72.810 Lymphocytopenia; D72.819 Decreased white blood cell count, unspecified; R73.9 Hyperglycemia, unspecified; E03.9 Hypothyroidism, unspecified; E55.9 Vitamin D deficiency, unspecified; Z96.642 Presence of left artificial hip joint; R74.8 Abnormal levels of other serum enzymes; E78.5 Hyperlipidemia, unspecified; I25.10 Atherosclerotic heart disease of native coronary artery without angina pectoris; K57.30 Diverticulosis of large intestine without perforation or abscess without bleeding; Z66 Do not resuscitate; D53.9 Nutritional anemia, unspecified; Z51.5 Encounter for palliative care; J20.9 Acute bronchitis, unspecified; K44.9 Diaphragmatic hernia without obstruction or gangrene; X58.XXXA Exposure to other specified factors, initial encounter; Y93.89 Activity, other specified; Y92.89 Other specified places as the place of occurrence of the external cause; Y99.8 Other external cause status; Z99.2 Dependence on renal dialysis; I25.2 Old myocardial infarction; Z88.0 Allergy status to penicillin; Z88.8 Allergy status to other drugs, medicaments and biological substances; Z91.048 Other nonmedicinal substance allergy status; Z90.49 Acquired absence of other specified parts of digestive tract; Z95.5 Presence of coronary angioplasty implant and graft; Z87.891 Personal history of nicotine dependence; Z82.49 Family history of ischemic heart disease and other diseases of the circulatory system; Z83.3 Family history of diabetes mellitus; Z82.5 Family history of asthma and other chronic lower respiratory diseases; Z84.1 Family history of disorders of kidney and ureter; Z83.49 Family history of other endocrine, nutritional and metabolic diseases; Z91.81 History of falling; Z79.899 Other long term (current) drug therapy; Z90.710 Acquired absence of both cervix and uterus

== ENCOUNTER 2017-11-22 19:59 | Inpatient (IN) | payer OTHER, MEDICAID ==
[~2017-11-22] VITALS: Ht 137.1 cm; Wt 53.3 kg
--- NOTE | ~2017-11-22 | PR ---
[place], [place] PROGRESS NOTE NAME: STEWART VELARDE [facility] #: [id number] UNIT #: [id number] ROOM: 515 DOCTOR: RONDA KNOWLES MD BIRTHDATE: [birth year] DOS: 11/24/2017 SUBJECTIVE: The patient was seen and examined. Apparently, she was moved to the ICU, was put on an amiodarone drip. She appears to be in sinus rhythm. She is more awake and alert today. She denies shortness of breath, fevers or chills. She is on room air. Per the nurse, she is being moved back to the floor. PHYSICAL EXAMINATION: VITAL SIGNS: Temperature 97.7, pulse 82, respiration rate 19, blood pressure 147/88. HEENT: Shows no JVD. LUNGS: Fairly clear. HEART: Normal S1, S2. No rub, thrill or gallop. ABDOMEN: Soft, nontender. EXTREMITIES: Had no edema. SKIN: Showed no rash. LABORATORY DATA: Hemoglobin 10.7, white count of 5.2, platelets of 114. Sodium 136, potassium 3.9, CO2 28, BUN 12, creatinine 3.3, calcium 9.7. ASSESSMENT AND PLAN: 1. End-stage renal disease. The patient is on hemodialysis Saturday, and Saturday. Her next dialysis will be on Saturday as per her normal schedule. Dose medication for end-stage renal disease. 2. Anemia of chronic disease. We will give as needed erythropoietin stimulating agents with dialysis. 3. Questionable urinary tract infection. She remains on antibiotics. Follow cultures. Blood cultures were done, which showed no growth to date. 4. Hypertension. Continue medications. RONDA KNOWLES MD CM:PNTRANS 1258 05 RONDA KNOWLES MD 11/24/172104 interface
--- NOTE | ~2017-11-22 | CON ---
[place], [place] REPORT OF CONSULTATION NAME: STEWART VELARDE [facility] #: [id number] UNIT #: [id number] ROOM: 515 DOCTOR: LUIS ALBERTO MCCRARY [facility],MOLLY BIRTHDATE: 44 DOS: 11/25/2017 CARDIOLOGY CONSULTATION REASON FOR CONSULTATION: The patient came in with shortness of breath and has some dizziness and palpitations, found to have an atrial fibrillation with a rapid ventricular response and small vessel ischemic changes on the CT of the head and optimize the medical therapy and the patient has a history of appendectomy, cholecystectomy, coronary stenting, and hip replacement. The patient was following by Dr. Shepherd, whom I am covering for the long weekend with the [facility] . The patient also has a chronic obstructive airway disease, chronic congestive heart failure, diastolic. PHYSICAL EXAMINATION: VITAL SIGNS: Stable. Heart rate is improved to some extent with optimum medical therapy and history of atrial fibrillation. Blood pressure 170/82 and optimize the medical therapy. LUNGS: Diminished breath sounds at the bases. HEART: S1, S2 irregularly irregular. ABDOMEN: Soft. Color is good, not diaphoretic. EXTREMITIES: No cyanosis. PLAN: Continue the current management and the antiarrhythmic medications. MOLLY SAHU MD CM:CONSTR:REPORT OF CONSULTATION 1112 12/09/17 1007 interface
--- NOTE | ~2017-11-22 | CON ---
[place], [place] REPORT OF CONSULTATION NAME: STEWART VELARDE [facility] #: [id number] UNIT #: [id number] ROOM: [facility] DOCTOR: RONDA KNOWLES MD BIRTHDATE: [birth year] DOS: 11/23/2017 REASON FOR CONSULTATION: Management of dialysis/patient known to you. HISTORY OF PRESENT ILLNESS: This is a 77-year-old female with past medical history of end-stage renal disease, on hemodialysis Saturday, and Saturday through an upper extremity AV fistula. The patient dialyzes at [facility] in [place] under the care of our practice. The patient is a poor historian. She was just in the hospital, in fact, a few weeks ago. She has been on dialysis for approximately 5 years. She has a history of anemia. Apparently, she was brought into the hospital due to some confusion and weakness. There were concerns that the patient had a urinary tract infection. She was started on antibiotics, being worked up. The patient did have her dialysis performed today here in the hospital by orders that I had discussed with the dialysis nurse. She seems to be feeling better. She told me she wants to be discharged home. She had been at a nursing home facility. She tells me she was supposed to be going home early next week. She currently denies shortness of breath, nausea or vomiting. ALLERGIES: Listed to PENICILLIN, TAPE, IRON, MEPERIDINE, MORPHINE, NUBAIN. MEDICATIONS: Reviewed on the patient's medical chart/EMR. PAST MEDICAL HISTORY: 1. End-stage renal disease, on hemodialysis Saturday, and Saturday, as stated above. 2. Upper extremity AV fistula. 3. Coronary artery disease with history of PCI. 4. Hypertension. 5. Hypothyroidism. 6. Anemia of chronic disease. 7. Atrial fibrillation. 8. COPD. 9. History of gastrointestinal bleed. 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 12. Cardiac catheterization. 12. Hip replacement. 13. Cholecystectomy. 14. Hysterectomy. FAMILY HISTORY: Negative for chronic kidney disease, otherwise noncontributory. SOCIAL HISTORY: No current tobacco, alcohol or illicit drugs. REVIEW OF SYSTEMS: As per HPI, otherwise, a 10-point review of systems was reviewed and was negative. PHYSICAL EXAMINATION: VITAL SIGNS: Temperature 98.6, pulse 56, respiration rate 18, blood pressure 167/80. [place], [place] REPORT OF CONSULTATION [id number] UNIT #: [id number] ROOM: [facility] DOCTOR: RONDA KNOWLES MD BIRTHDATE: [birth year] GENERAL: She is awake, alert, comfortable, in no acute distress. HEENT: Shows no JVD. Sclerae are anicteric. Mucous membranes are moist. Pharynx is clear. NECK: Supple. Trachea is midline. There is no neck lymphadenopathy or thyromegaly. LUNGS: Diminished breath sounds. No appreciable wheezes. No tactile fremitus. She is not using accessory muscles of respiration. HEART: Normal S1, S2. No rub. No thrill or gallop. ABDOMEN: Soft and nontender. There is no organomegaly or rigidity, rebound or guarding. There is no CVA tenderness. EXTREMITIES: No edema. There is no lower extremity lymphadenopathy. Distal pulses are 2+. SKIN: Showed no overt rash. There is no petechia or purpura. Skin temperature is warm. NEUROLOGIC: She was awake, alert and following commands. Cranial nerves are intact. LABORATORY DATA: Hemoglobin 10.4, white count of 4.6, platelets 134, BUN 24, creatinine 5.5, sodium 142, potassium 4.0, carbon dioxide 32, calcium 9.1, phosphorus 2.9, albumin 3.3. IMPRESSION: 1. End-stage renal disease, on hemodialysis Saturday, , Saturday through an upper extremity fistula. 2. Weakness/confusion with questionable urinary tract infection. 3. Anemia of chronic disease. 4. Hypertension. 5. History of hyperphosphatemia with tertiary hyperparathyroidism. RONDA KNOWLES MD CM:CONSTR:REPORT OF CONSULTATION 1455 11/23/172224 interface
--- NOTE | ~2017-11-22 | PR ---
[place], [place] PROGRESS NOTE [facility]: [id number] UNIT #: [id number] ROOM: 515 DOCTOR: LUIS ALBERTO MCCRARY [facility] BIRTHDATE: [birth year] DOS: 11/25/2017 SUBJECTIVE: The patient is feeling better. OBJECTIVE: The covering Dr. Shepherd. The patient went into extreme tachycardia and borderline blood pressure and was brought to the unit and started on amiodarone, no further Cardizem. The patient was on the telemetry and since optimize medical therapy, heart rate improved, alert, and not in any acute distress. SKIN: Warm, not diaphoretic. NECK: Supple. LUNGS: Bibasilar rhonchi. HEART: S1, S2 irregular. Heart rate is optimal control rate. ABDOMEN: Soft. Color is good, not diaphoretic. No cyanosis. IMPRESSION: Cardiovascular status is stabilizing. PLAN: Continue the current management. May transfer back to the telemetry and Dr. Shepherd should be back on Saturday after the hol. We will continue the current management, appears to be medications are optimized. We will switch it to the oral amiodarone and explained to the staff, discussed with the staff at length. MOLLY SAHU MD CM:PNTRANS [id number] MOLLY SAHU MD [facility] 11/25/17 1201 interface
[~2017-11-22 19:59] MED LIST changes: +ELIQUIS5 M1 PO; +MUCINEX ER600 MG PO
[2017-11-22 20:04] VITALS: BP 162/65
[2017-11-22 20:42] LABS: BASO % 0.3 % (0.0-1.0); EOS # 0.1 10*3/uL (0.0-0.4); EOS % 2.6 % (1.0-4.0); HEMATOCRIT 35.3 % (37.0-47.0); HEMOGLOBIN 10.7 g/dl (12.0-16.0); LYMPH # 0.8 10*3/uL (1.3-4.4); LYMPH % 20.3 % (27.0-41.0); MEAN CORPUSCULAR HGB 30.9 pg (27.0-31.0); MEAN CORPUSCULAR HGB CONC 30.3 g/dl (33.0-37.0); MEAN PLATELET VOLUME 10.9 fl (9.6-12.3); MONO # 0.5 10*3/uL (0.1-1.0); MONO % 13.8 % (3.0-9.0); NEUT # 2.5 10*3/uL (2.3-7.9); NEUT % 62.7 % (47.0-73.0); PLATELET COUNT AUTOMATED 148 10*3/uL (130-400); RED BLOOD COUNT 3.46 10*6/uL (4.10-5.10); RED CELL DISTRI WIDTH 15.9 % (0-14.5); WHITE BLOOD COUNT 3.9 10*3/uL (4.8-10.8)
[2017-11-22 20:47] VITALS: BP 176/84
[2017-11-22 20:57] LABS: ALBUMIN 3.7 gm/dl (3.1-4.5); CREATININE 5.27 mg/dL (0.55-1.02); POTASSIUM 3.6 mmol/L (3.5-5.1); TOTAL PROTEIN 6.9 gm/dL (6.4-8.2)
[2017-11-22 21:20] LABS: BILIRUBIN NEGATIVE (NEGATIVE); BLOOD 1+ (NEGATIVE); CLARITY CLOUDY (CLEAR); COLOR YELLOW (YELLOW); GLUCOSE TRACE (NEGATIVE); KETONE NEGATIVE (NEGATIVE); LEUKO ESTERASE 3+ (NEGATIVE); NITRITE NEGATIVE (NEGATIVE); PH 8.5 (5.0-9.0); UROBILINOGEN 0.2 E.U./dl (0.2-1.0)
[2017-11-22 21:27] LABS: BACTERIA 2+; EPITHELIAL CELLS TNTC; WBC TNTC wbc/hpf (0-5)
[2017-11-22 21:30] VITALS: BP 182/98
[2017-11-22 22:35] VITALS: BP 173/82
[2017-11-22 22:55] VITALS: BP 156/92; BP 176/87
[2017-11-23] VITALS (10 sets, daily range): BP systolic 127–172; BP diastolic 59–96
[2017-11-23] MEDS ORDERED: DULCOLAX10 M1 R (01:53)
[2017-11-23] MEDS ORDERED: VALTREX1000 MG PO (01:54)
[2017-11-23 04:13] LABS: BASO % 0.7 % (0.0-1.0); EOS # 0.1 10*3/uL (0.0-0.4); EOS % 1.1 % (1.0-4.0); HEMATOCRIT 33.7 % (37.0-47.0); HEMOGLOBIN 10.4 g/dl (12.0-16.0); LYMPH # 0.6 10*3/uL (1.3-4.4); LYMPH % 12.4 % (27.0-41.0); MEAN CELL VOLUME 101.2 fl (81.0-99.0); MEAN CORPUSCULAR HGB 31.2 pg (27.0-31.0); MEAN CORPUSCULAR HGB CONC 30.9 g/dl (33.0-37.0); MEAN PLATELET VOLUME 10.7 fl (9.6-12.3); MONO # 0.6 10*3/uL (0.1-1.0); MONO % 13.5 % (3.0-9.0); NEUT # 3.3 10*3/uL (2.3-7.9); NEUT % 72.1 % (47.0-73.0); PLATELET COUNT AUTOMATED 134 10*3/uL (130-400); RED BLOOD COUNT 3.33 10*6/uL (4.10-5.10); RED CELL DISTRI WIDTH 16.1 % (0-14.5); WHITE BLOOD COUNT 4.6 10*3/uL (4.8-10.8)
[2017-11-23 04:33] LABS: ALBUMIN 3.3 gm/dl (3.1-4.5); CREATININE 5.47 mg/dL (0.55-1.02); PHOSPHOROUS 2.9 mg/dL (2.5-4.9); POTASSIUM 4.1 mmol/L (3.5-5.1); TOTAL PROTEIN 6.4 gm/dL (6.4-8.2)
[2017-11-23 04:42] LABS: THYROID STIM HORMONE (HS) 3.59 uIU/ml (0.358-4.75)
[2017-11-24] VITALS (9 sets, daily range): BP systolic 104–148; BP diastolic 56–88
[2017-11-24 06:12] LABS: BASO % 0.4 % (0.0-1.0); EOS % 0.6 % (1.0-4.0); HEMATOCRIT 34.7 % (37.0-47.0); HEMOGLOBIN 10.7 g/dl (12.0-16.0); LYMPH # 0.6 10*3/uL (1.3-4.4); LYMPH % 10.6 % (27.0-41.0); MEAN CELL VOLUME 101.5 fl (81.0-99.0); MEAN CORPUSCULAR HGB 31.3 pg (27.0-31.0); MEAN CORPUSCULAR HGB CONC 30.8 g/dl (33.0-37.0); MEAN PLATELET VOLUME 12.1 fl (9.6-12.3); MONO # 0.7 10*3/uL (0.1-1.0); MONO % 12.9 % (3.0-9.0); NEUT # 3.9 10*3/uL (2.3-7.9); NEUT % 75.3 % (47.0-73.0); PLATELET COUNT AUTOMATED 114 10*3/uL (130-400); RED BLOOD COUNT 3.42 10*6/uL (4.10-5.10); RED CELL DISTRI WIDTH 16.8 % (0-14.5); WHITE BLOOD COUNT 5.2 10*3/uL (4.8-10.8)
[2017-11-24 06:24] LABS: ALBUMIN 3.2 gm/dl (3.1-4.5); POTASSIUM 3.9 mmol/L (3.5-5.1); TOTAL PROTEIN 6.2 gm/dL (6.4-8.2)
[2017-11-24 06:27] LABS: CREATININE 3.27 mg/dL (0.55-1.02)
[2017-11-25] VITALS: BP 145/68
[2017-11-25 06:32] LABS: BASO % 0.7 % (0.0-1.0); EOS # 0.1 10*3/uL (0.0-0.4); EOS % 1.8 % (1.0-4.0); HEMATOCRIT 34.1 % (37.0-47.0); HEMOGLOBIN 10.7 g/dl (12.0-16.0); LYMPH # 0.8 10*3/uL (1.3-4.4); LYMPH % 17.5 % (27.0-41.0); MEAN CELL VOLUME 101.8 fl (81.0-99.0); MEAN CORPUSCULAR HGB 31.9 pg (27.0-31.0); MEAN CORPUSCULAR HGB CONC 31.4 g/dl (33.0-37.0); MEAN PLATELET VOLUME 12.4 fl (9.6-12.3); MONO # 0.7 10*3/uL (0.1-1.0); MONO % 15.7 % (3.0-9.0); NEUT # 2.8 10*3/uL (2.3-7.9); NEUT % 64.1 % (47.0-73.0); PLATELET COUNT AUTOMATED 112 10*3/uL (130-400); RED BLOOD COUNT 3.35 10*6/uL (4.10-5.10); RED CELL DISTRI WIDTH 17.2 % (0-14.5); WHITE BLOOD COUNT 4.4 10*3/uL (4.8-10.8)
[2017-11-25 07:03] LABS: ALBUMIN 3.3 gm/dl (3.1-4.5); CREATININE 4.74 mg/dL (0.55-1.02); PHOSPHOROUS 3.4 mg/dL (2.5-4.9); POTASSIUM 4.3 mmol/L (3.5-5.1)
[2017-11-25 08:00] VITALS: BP 156/60
[2017-11-25] MEDS ORDERED: PACERONE200 MG PO (11:25)
[2017-11-25] MEDS ORDERED: METOPROLOL TAR100 M1 PO (11:25)
[2017-11-25] MEDS ORDERED: ASPIRIN ADULT L81 M2 PO (11:25)
[2017-11-25] MEDS ORDERED: PRAVACHOL40 MG PO (11:48)
[2017-11-25] MEDS ORDERED: VITAMIN D31000 UNI1 PO (11:48)
[2017-11-25] MEDS ORDERED: RENVELA800 MG PO (11:48)
[2017-11-25] MEDS ORDERED: LISINOPRIL10 M1 PO (11:48)
[2017-11-25] MEDS ORDERED: SYNTHROID,LEVO75 MCG PO (11:48)
[2017-11-25] MEDS ORDERED: ELIQUIS5 M1 PO (11:48)
[2017-11-25] MEDS ORDERED: OMEPRAZOLE20 M2 PO (11:48)
[2017-11-25 12:00] VITALS: BP 119/57
== END 2017-11-25 12:58 | disposition home or self-care (01) | DRG 871 ==
LOC: ED 19:59 → EDHOLD 21:59 → 4E 22:42 → ICCU 11-23 16:19 → 5E 11-24 15:35
PROVIDERS: Internal Medicine; Internal Medicine Hospice and Palliative Medicine; Physician Assistant
PROC: 5A1D70Z Performance of Urinary Filtration, Intermittent, Less than 6 Hours Per Day (ICD-10-PCS; principal; 2017-11-23)
DX: A41.9 Sepsis, unspecified organism (principal); N18.6 End stage renal disease; I13.2 Hypertensive heart and chronic kidney disease with heart failure and with stage 5 chronic kidney disease, or end stage renal disease; E87.3 Alkalosis; D68.59 Other primary thrombophilia; I48.0 Paroxysmal atrial fibrillation; J44.9 Chronic obstructive pulmonary disease, unspecified; I50.32 Chronic diastolic (congestive) heart failure; N39.0 Urinary tract infection, site not specified; I25.10 Atherosclerotic heart disease of native coronary artery without angina pectoris; K57.90 Diverticulosis of intestine, part unspecified, without perforation or abscess without bleeding; E03.9 Hypothyroidism, unspecified; F17.220 Nicotine dependence, chewing tobacco, uncomplicated; D72.810 Lymphocytopenia; R73.9 Hyperglycemia, unspecified; R74.8 Abnormal levels of other serum enzymes; E55.9 Vitamin D deficiency, unspecified; K44.9 Diaphragmatic hernia without obstruction or gangrene; D53.9 Nutritional anemia, unspecified; E66.3 Overweight; D63.8 Anemia in other chronic diseases classified elsewhere; E21.2 Other hyperparathyroidism; Z96.643 Presence of artificial hip joint, bilateral; Z90.49 Acquired absence of other specified parts of digestive tract; Z95.5 Presence of coronary angioplasty implant and graft; Z82.49 Family history of ischemic heart disease and other diseases of the circulatory system; Z99.2 Dependence on renal dialysis; Z91.81 History of falling; I25.2 Old myocardial infarction; Z83.3 Family history of diabetes mellitus; Z82.71 Family history of polycystic kidney; Z90.710 Acquired absence of both cervix and uterus; Z88.0 Allergy status to penicillin; Z88.8 Allergy status to other drugs, medicaments and biological substances; Z91.041 Radiographic dye allergy status; Z79.899 Other long term (current) drug therapy

== ENCOUNTER 2017-12-02 21:51 | Emergency (ER) | payer OTHER, MEDICAID ==
[~2017-12-02] VITALS: Ht 137.1 cm; Wt 54.0 kg
[~2017-12-02 21:51] MED LIST changes: +ASPIRIN ADULT L81 M2 PO; +DULCOLAX10 M1 R; +METOPROLOL TAR100 M1 PO; +PACERONE200 MG PO; +VALTREX1000 MG PO
[2017-12-02 22:55] LABS: BASO % 0.5 % (0.0-1.0); EOS % 0.5 % (1.0-4.0); HEMATOCRIT 33.8 % (37.0-47.0); HEMOGLOBIN 10.4 g/dl (12.0-16.0); LYMPH # 0.5 10*3/uL (1.3-4.4); MEAN CELL VOLUME 104.6 fl (81.0-99.0); MEAN CORPUSCULAR HGB 32.2 pg (27.0-31.0); MEAN CORPUSCULAR HGB CONC 30.8 g/dl (33.0-37.0); MEAN PLATELET VOLUME 11.7 fl (9.6-12.3); MONO # 0.8 10*3/uL (0.1-1.0); MONO % 12.5 % (3.0-9.0); NEUT # 4.8 10*3/uL (2.3-7.9); NEUT % 77.7 % (47.0-73.0); PLATELET COUNT AUTOMATED 155 10*3/uL (130-400); RED BLOOD COUNT 3.23 10*6/uL (4.10-5.10); RED CELL DISTRI WIDTH 19.4 % (0-14.5); WHITE BLOOD COUNT 6.2 10*3/uL (4.8-10.8)
[2017-12-02 23:10] LABS: ALBUMIN 3.2 gm/dl (3.1-4.5); CREATININE 6.15 mg/dL (0.55-1.02); POTASSIUM 4.4 mmol/L (3.5-5.1); TOTAL PROTEIN 6.2 gm/dL (6.4-8.2)
[2017-12-02 23:16] LABS: TROPONIN I 0.053 ng/ml (<0.045)
[2017-12-03 00:51] VITALS: BP 176/88
== END 2017-12-03 00:53 | disposition home or self-care (01) ==
LOC: ED 21:51
PROVIDERS: Emergency Medicine
DX: N17.9 Acute kidney failure, unspecified (principal); R10.13 Epigastric pain; R10.11 Right upper quadrant pain; J44.9 Chronic obstructive pulmonary disease, unspecified; I48.91 Unspecified atrial fibrillation; F17.200 Nicotine dependence, unspecified, uncomplicated; I25.10 Atherosclerotic heart disease of native coronary artery without angina pectoris; I13.2 Hypertensive heart and chronic kidney disease with heart failure and with stage 5 chronic kidney disease, or end stage renal disease; N18.6 End stage renal disease; I50.30 Unspecified diastolic (congestive) heart failure; E03.9 Hypothyroidism, unspecified; I25.2 Old myocardial infarction; E66.3 Overweight; Z68.29 Body mass index [BMI] 29.0-29.9, adult; Z90.49 Acquired absence of other specified parts of digestive tract; Z98.890 Other specified postprocedural states; Z96.643 Presence of artificial hip joint, bilateral; Z95.5 Presence of coronary angioplasty implant and graft; Z79.82 Long term (current) use of aspirin; Z99.2 Dependence on renal dialysis; Z79.899 Other long term (current) drug therapy; Z88.0 Allergy status to penicillin; Z88.5 Allergy status to narcotic agent; Z88.6 Allergy status to analgesic agent

== ENCOUNTER → 2017-12-13 | Outpatient (CLI) | payer OTHER, MEDICAID ==
[2017-12-13 09:30] VITALS: BP 117/40
[2017-12-13 12:30] VITALS: BP 117/45
[2017-12-13 13:10] VITALS: BP 94/42
[2017-12-13 13:40] VITALS: BP 104/40
[2017-12-13 14:40] VITALS: BP 121/47
[2017-12-13 15:00] VITALS: BP 132/51
== END | disposition home or self-care (01) ==
LOC: TRNFUSION 03:18
DX: D53.9 Nutritional anemia, unspecified (principal)

== ENCOUNTER 2018-01-30 19:43 | Emergency (ER) | payer OTHER, MEDICAID ==
[~2018-01-30] VITALS: Wt 52.2 kg
--- NOTE | ~2018-01-30 | EKG ---
[place], [place] ELECTROCARDIOGRAM REPORT NAME: STEWART VELARDE UNIT #: [id number] ROOM: DOCTOR: EPIPHANY DRAFT REPORT BIRTHDATE: [birth year] [facility] Test Date: 2018-01-30 Test Time: 20:28:15 Pat Name: STEWART VELARDE Department: ER Room: Gender: F Graphics Editor: EKG.CT : 1940 Requested By: GABBIE RAYMUNDO PA-C Order Number: [id number] Reading MD: Sloan Funes MD Measurements Intervals [place] Rate: 84 P: TN: QRS: 67 QRSD: 89 T: 32 QT: 369 QTc: 432 Interpretive Statements Atrial flutter with predominant 3:1 AV block Anterior infarct, old No previous ECG available for comparison Electronically Signed On 01-30-2018 21:30:53 PDT by Sloan Funes MD CM:EKGRPT:ELECTROCARDIOGRAM REPORT 27 29 GABBIE RAYMUNDO PA-C EPIPHANY DRAFT REPORT GABBIE RAYMUNDO PA-C
[2018-01-30 19:43] VITALS: BP 153/82
[2018-01-30 20:41] LABS: HEMATOCRIT 37.5 % (37.0-47.0); HEMOGLOBIN 11.4 g/dl (12.0-16.0); MEAN CELL VOLUME 113.3 fl (81.0-99.0); MEAN CORPUSCULAR HGB 34.4 pg (27.0-31.0); MEAN CORPUSCULAR HGB CONC 30.4 g/dl (33.0-37.0); MEAN PLATELET VOLUME 11.3 fl (9.6-12.3); PLATELET COUNT AUTOMATED 176 10*3/uL (130-400); RED BLOOD COUNT 3.31 10*6/uL (4.10-5.10); RED CELL DISTRI WIDTH 15.4 % (0-14.5); WHITE BLOOD COUNT 3.8 10*3/uL (4.8-10.8)
[2018-01-30 20:52] LABS: ACT PARTIAL THROMBO TIME 26.5 SECONDS (20.8-31.5)
[2018-01-30 20:58] LABS: ALBUMIN 3.2 gm/dl (3.1-4.5); CREATININE 3.31 mg/dL (0.55-1.02); POTASSIUM 4.3 mmol/L (3.5-5.1); TOTAL PROTEIN 6.4 gm/dL (6.4-8.2)
[2018-01-30 20:59] LABS: TROPONIN I 0.031 ng/ml (<0.045)
[2018-01-30 21:07] LABS: BASOPHILS 3 % (0-1); TOTAL CELLS COUNTED 100 #CELLS
[2018-01-30 21:08] LABS: PLATELET SUFFICIENCY NORMAL (NORMAL)
[2018-01-30 21:53] LABS: BILIRUBIN NEGATIVE (NEGATIVE); BLOOD 2+ (NEGATIVE); CLARITY CLOUDY (CLEAR); COLOR YELLOW (YELLOW); GLUCOSE TRACE (NEGATIVE); KETONE NEGATIVE (NEGATIVE); NITRITE NEGATIVE (NEGATIVE); PH 8.5 (5.0-9.0); UROBILINOGEN 0.2 E.U./dl (0.2-1.0)
[2018-01-30 22:00] LABS: LEUKO ESTERASE 3+ (NEGATIVE)
[2018-01-30 22:03] LABS: BACTERIA 2+; EPITHELIAL CELLS 15-20
[2018-01-30 22:04] LABS: WBC TNTC wbc/hpf (0-5)
== END 2018-01-30 22:49 | disposition home or self-care (01) ==
LOC: ED 19:43
PROVIDERS: Physician Assistant
DX: R55 Syncope and collapse (principal); I95.1 Orthostatic hypotension; F17.200 Nicotine dependence, unspecified, uncomplicated; Z90.49 Acquired absence of other specified parts of digestive tract; Z95.5 Presence of coronary angioplasty implant and graft; Z96.642 Presence of left artificial hip joint; Z98.890 Other specified postprocedural states; Z79.82 Long term (current) use of aspirin; Z79.899 Other long term (current) drug therapy; Z88.0 Allergy status to penicillin; Z88.5 Allergy status to narcotic agent; Z88.8 Allergy status to other drugs, medicaments and biological substances

== ENCOUNTER 2018-05-07 09:16 | Inpatient (IN) | payer OTHER, MEDICAID ==
[~2018-05-07] VITALS: Ht 154.9 cm; Wt 45.9 kg
--- NOTE | ~2018-05-07 | PR ---
[place], [place] PROGRESS NOTE NAME: STEWART VELARDE [facility] #: [id number] UNIT #: [id number] ROOM: 409 DOCTOR: BENSON MCCRARY,RONDA Farrell BIRTHDATE: [birth year] DOS: 05/17/2018 SUBJECTIVE: The patient was seen and examined. She is awake, alert, lying in bed. She is in no apparent distress. PHYSICAL EXAMINATION: VITAL SIGNS: Showed temperature 97.5, pulse 71, respiratory rate 18 and blood pressure 121/49. HEENT: Shows no JVD. LUNGS: Diminished breath sounds with no wheeze. HEART: S1, S2. No rub. ABDOMEN: Soft, nontender. There is no organomegaly. EXTREMITIES: Had trace edema. LABORATORY DATA: Showed hemoglobin 8.9, white count of 4.9, platelets 147. Sodium 137, potassium 4.3, BUN 40, creatinine 5.1, calcium 9.6. IMPRESSION AND PLAN: 1. End-stage renal disease, on hemodialysis Saturday, and Saturday. The patient underwent dialysis today. Next dialysis will be next week per the holiday schedule. 2. Anemia. Give as needed erythropoietin stimulating agents with dialysis. 3. Hyperlipidemia. Continue meds. 4. Atrial fibrillation. The patient is on amiodarone. RONDA KNOWLES MD CM:PNTRANS 1354 [id number] RONDA KNOWLES MD 05/17/18 1637 interface
--- NOTE | ~2018-05-07 | PR ---
[place], [place] PROGRESS NOTE NAME: STEWART VELARDE [facility] #: [id number] UNIT #: [id number] ROOM: 409 DOCTOR: BENSON MCCRARY,RONDA Farrell BIRTHDATE: [birth year] DOS: 05/18/2018 SUBJECTIVE: The patient was seen and examined. She is awake and alert. She is on room air. She denies shortness of breath. She states she is still having her jerking movements. PHYSICAL EXAMINATION: VITAL SIGNS: Temperature 98.2, pulse 92, respiratory rate 16, blood pressure 149/82. HEENT: Shows no JVD. LUNGS: Diminished breath sounds with no wheeze. HEART: S1, S2. No rub. ABDOMEN: Soft, nontender. EXTREMITIES: Had no edema. LABORATORY DATA: Hemoglobin 9.1, white count of 4.3, platelets 150. Sodium 136, potassium 4.2, CO2 of 29, BUN 22, creatinine 3.5, glucose 71, calcium 9.0. ASSESSMENT AND PLAN: 1. End-stage renal disease. The patient is on hemodialysis Saturday, and Saturday. She did undergo dialysis yesterday. We will need to confirm what the outpatient clinic holiday schedule is. Potentially, she may need dialysis tomorrow in view of the holiday schedule. 2. Anemia. Give erythropoietin stimulating agents as needed with dialysis. Transfuse as felt necessary. 3. Hyperlipidemia. Continue meds. 4. Atrial fibrillation. The patient is on amiodarone. RONDA KNOWLES MD CM:PNTRANS 1306 1333 RONDA KNOWLES MD 05/18/18 1333 interface
--- NOTE | ~2018-05-07 | PROC NOTE ---
[place], [place] PROCEDURE NOTE NAME: STEWART VELARDE [facility] #: [id number] UNIT #: [id number] ROOM: 409 DOCTOR: TALI PLATT BIRTHDATE: [birth year] DOS: 05/08/2018 MODIFIED BARIUM SWALLOW LOCATION: [facility], room 409, bed 1. DATE OF EVALUATION: 05/08/2018 ORDERING PHYSICIAN: Donte Stovall. RADIOLOGIST: Dr. Nelson. BACKGROUND INFORMATION: The patient, a 78-year-old female who was seen for a modified barium swallow. This test was ordered to assess safety with swallow. The patient is diagnosed with pneumonia and suffered a CVA 4 weeks ago. She has a PEG tube placed, but is also ordered a p.o. diet of regular consistency and thin liquid. Further medical history includes [place], AFib, CAD, CKD, COPD. The patient attends dialysis 3 times weekly. For today's assessment, she was alert, but weak overall, slow to respond and with dysarthric speech. She was receiving oxygen via nasal cannula. Oral peripheral examination revealed edentulous status. Left labial weakness was displayed. Volitional cough was weak. The patient presented as cooperative, but as a poor historian overall. She was not able to state why the PEG tube was placed and was not aware if she was having any trouble swallowing. METHODS AND MATERIALS USED FOR THE EXAM: The patient was positioned in the lateral plane and examination was viewed under fluoroscopy. The patient was presented with a variety of consistencies to assess swallowing skills including applesauce mixed with barium presented in half teaspoon amounts, barium-coated banana and cookie taken in bite size pieces and thin liquid barium taken in single sip size amount by cup and straw. ORAL PHASE: The patient achieved adequate labial seal around cup, spoon and straw with no anterior loss. Bolus formation was adequate. Mastication of solids was slow, oral transit was slow as well. Tongue to palate contact was adequate. Tongue retraction was adequate. Velar functioning was within normal limits with no nasal regurgitation. PHARYNGEAL PHASE: Unremarkable. ESOPHAGEAL PHASE: This phase of the swallow was not formally assessed during this exam. IMPRESSIONS AND RECOMMENDATIONS: Based upon assessment results, this 78-year-old patient presents with a mild oral dysphagia characterized by slow mastication and bolus propulsion. Once her swallow triggered, there was no penetration, aspiration or residue. Recommend the patient receive a soft diet and thin liquid. Recommend use of safe swallow precautions such as upright positioning for meals, consumption of small bites and sips and alternating liquid and solid. Followup therapy is recommended to ensure safe tolerance of [place], [place] PROCEDURE NOTE NAME: STEWART VELARDE UNIT #: [id number] ROOM: [facility] DOCTOR: TALI PLATT BIRTHDATE: [birth year] diet through education and adherence to safe swallow precautions. Results and recommendations were shared with the patient and her nurse and they verbalized understanding. Thank you very much for this referral. Should you have any questions regarding this patient, please contact the speech pathologist at [phone]. TALI PLATT CM:PROCNOTE:PROCEDURE NOTE 1413 0145 TALI PLATT
[2018-05-07 09:17] VITALS: BP 166/82
[2018-05-07 09:59] LABS: HEMATOCRIT 31.4 % (37.0-47.0); HEMOGLOBIN 9.6 g/dl (12.0-16.0); MEAN CELL VOLUME 112.9 fl (81.0-99.0); MEAN CORPUSCULAR HGB 34.5 pg (27.0-31.0); MEAN CORPUSCULAR HGB CONC 30.6 g/dl (33.0-37.0); MEAN PLATELET VOLUME 11.5 fl (9.6-12.3); PLATELET COUNT AUTOMATED 160 10*3/uL (130-400); RED BLOOD COUNT 2.78 10*6/uL (4.10-5.10); RED CELL DISTRI WIDTH 17.1 % (0-14.5); WHITE BLOOD COUNT 11.8 10*3/uL (4.8-10.8)
[2018-05-07 10:07] LABS: INTERNATIONAL NORM RATIO 1.1 (2.0-3.5)
[2018-05-07 10:14] LABS: ALBUMIN 3.3 gm/dl (3.1-4.5); CREATININE 3.6 mg/dL (0.55-1.02); POTASSIUM 4.1 mmol/L (3.5-5.1); TOTAL PROTEIN 6.9 gm/dL (6.4-8.2)
[2018-05-07 10:17] LABS: PLATELET SUFFICIENCY NORMAL (NORMAL); POLYCHROMASIA SLIGHT; TOTAL CELLS COUNTED 100 #CELLS
[2018-05-07 11:12] VITALS: BP 128/62
[2018-05-07 12:00] VITALS: BP 91/49
[2018-05-07] MEDS ORDERED: PACERONE200 MG PO (12:21)
[2018-05-07] MEDS ORDERED: Lopressor25 MG PO (12:22)
[2018-05-07] MEDS ORDERED: LEVETIRACE100 MG/1 M PO (12:24)
[2018-05-07] MEDS ORDERED: Ipratropium Brom3 ML INH (12:24)
[2018-05-07] MEDS ORDERED: KEPPRA100 MG/1 M PO (12:26)
[2018-05-07] MEDS ORDERED: XANAX0.25 MG PO (12:27)
[2018-05-07 16:00] VITALS: BP 105/56; BP 105/63
[2018-05-07 20:00] VITALS: BP 104/57
[2018-05-08] VITALS: BP 107/51
[2018-05-08 06:21] LABS: HEMATOCRIT 28.8 % (37.0-47.0); HEMOGLOBIN 8.6 g/dl (12.0-16.0); MEAN CELL VOLUME 112.5 fl (81.0-99.0); MEAN CORPUSCULAR HGB 33.6 pg (27.0-31.0); MEAN CORPUSCULAR HGB CONC 29.9 g/dl (33.0-37.0); MEAN PLATELET VOLUME 12.7 fl (9.6-12.3); PLATELET COUNT AUTOMATED 133 10*3/uL (130-400); RED BLOOD COUNT 2.56 10*6/uL (4.10-5.10); RED CELL DISTRI WIDTH 16.8 % (0-14.5); WHITE BLOOD COUNT 7.6 10*3/uL (4.8-10.8)
[2018-05-08 06:33] LABS: ALBUMIN 2.9 gm/dl (3.1-4.5); CREATININE 4.29 mg/dL (0.55-1.02); PHOSPHOROUS 3.5 mg/dL (2.5-4.9); POTASSIUM 4.7 mmol/L (3.5-5.1)
[2018-05-08 06:48] LABS: BASOPHILS 1 % (0-1); TOTAL CELLS COUNTED 100 #CELLS
[2018-05-08 06:49] LABS: PLATELET SUFFICIENCY NORMAL (NORMAL); POLYCHROMASIA SLIGHT
[2018-05-08 07:57] LABS: VITAMIN D, 25-HYDROXY 35.9 ng/mL (30-100)
[2018-05-08 07:58] VITALS: BP 104/50
[2018-05-08 12:00] VITALS: BP 134/72
[2018-05-08 16:28] VITALS: BP 143/67
[2018-05-08 20:00] VITALS: BP 117/54
[2018-05-09] VITALS (7 sets, daily range): BP systolic 100–148; BP diastolic 51–90
[2018-05-09 05:56] LABS: HEMATOCRIT 32.6 % (37.0-47.0); HEMOGLOBIN 9.4 g/dl (12.0-16.0); MEAN CORPUSCULAR HGB 33.5 pg (27.0-31.0); MEAN CORPUSCULAR HGB CONC 28.8 g/dl (33.0-37.0); MEAN PLATELET VOLUME 12.4 fl (9.6-12.3); NUCLEATED RED BLOOD CELL 0.3 % (0.0-0.0); PLATELET COUNT AUTOMATED 148 10*3/uL (130-400); RED BLOOD COUNT 2.81 10*6/uL (4.10-5.10); WHITE BLOOD COUNT 7.1 10*3/uL (4.8-10.8)
[2018-05-09 06:00] LABS: CREATININE 3.09 mg/dL (0.55-1.02); POTASSIUM 4.3 mmol/L (3.5-5.1)
[2018-05-09 06:43] LABS: PLATELET SUFFICIENCY NORMAL (NORMAL); POLYCHROMASIA SLIGHT; TOTAL CELLS COUNTED 100 #CELLS
[2018-05-10] VITALS: BP 91/47
[2018-05-10 06:07] LABS: HEMOGLOBIN 9.4 g/dl (12.0-16.0); MEAN CELL VOLUME 114.3 fl (81.0-99.0); MEAN CORPUSCULAR HGB 33.6 pg (27.0-31.0); MEAN CORPUSCULAR HGB CONC 29.4 g/dl (33.0-37.0); MEAN PLATELET VOLUME 12.2 fl (9.6-12.3); NUCLEATED RED BLOOD CELL 0.6 % (0.0-0.0); PLATELET COUNT AUTOMATED 162 10*3/uL (130-400); RED CELL DISTRI WIDTH 16.8 % (0-14.5); WHITE BLOOD COUNT 5.4 10*3/uL (4.8-10.8)
[2018-05-10 06:15] LABS: ALBUMIN 3.2 gm/dl (3.1-4.5); CREATININE 4.22 mg/dL (0.55-1.02)
[2018-05-10 07:34] LABS: BASOPHILS 1 % (0-1); PLATELET SUFFICIENCY NORMAL (NORMAL); POLYCHROMASIA SLIGHT; TOTAL CELLS COUNTED 100 #CELLS
[2018-05-10 08:00] VITALS: BP 130/60
[2018-05-10 12:00] VITALS: BP 130/71
[2018-05-10 16:00] VITALS: BP 129/68
[2018-05-10 20:00] VITALS: BP 115/59
[2018-05-11] VITALS: BP 155/88
[2018-05-11 06:23] LABS: MEAN CELL VOLUME 114.1 fl (81.0-99.0); MEAN CORPUSCULAR HGB 33.6 pg (27.0-31.0); MEAN CORPUSCULAR HGB CONC 29.4 g/dl (33.0-37.0); MEAN PLATELET VOLUME 11.8 fl (9.6-12.3); NUCLEATED RED BLOOD CELL 0.6 % (0.0-0.0); PLATELET COUNT AUTOMATED 148 10*3/uL (130-400); RED BLOOD COUNT 2.98 10*6/uL (4.10-5.10); RED CELL DISTRI WIDTH 16.6 % (0-14.5); WHITE BLOOD COUNT 5.2 10*3/uL (4.8-10.8)
[2018-05-11 06:31] LABS: ALBUMIN 3.6 gm/dl (3.1-4.5); CREATININE 3.14 mg/dL (0.55-1.02); TOTAL PROTEIN 6.8 gm/dL (6.4-8.2)
[2018-05-11 07:35] LABS: ACANTHOCYTES FEW; BASOPHILS 7 % (0-1); PLATELET SUFFICIENCY NORMAL (NORMAL); SPHEROCYTES FEW; TOTAL CELLS COUNTED 100 #CELLS
[2018-05-11 08:00] VITALS: BP 140/60
[2018-05-11 12:00] VITALS: BP 93/66
[2018-05-11 16:00] VITALS: BP 126/76
[2018-05-11 16:33] LABS: BILIRUBIN NEGATIVE (NEGATIVE); BLOOD TRACE-INTACT (NEGATIVE); CLARITY CLEAR (CLEAR); COLOR YELLOW (YELLOW); GLUCOSE NEGATIVE (NEGATIVE); KETONE NEGATIVE (NEGATIVE); LEUKO ESTERASE 1+ (NEGATIVE); NITRITE NEGATIVE (NEGATIVE); UROBILINOGEN 0.2 E.U./dl (0.2-1.0)
[2018-05-11 17:01] LABS: BACTERIA 1+; EPITHELIAL CELLS TNTC; RBC 0-2 rbc/hpf (0-2); WBC 31-40 wbc/hpf (0-5)
[2018-05-11 20:00] VITALS: BP 118/62
[2018-05-12] VITALS: BP 129/78
[2018-05-12 07:00] LABS: HEMATOCRIT 32.7 % (37.0-47.0); HEMOGLOBIN 9.7 g/dl (12.0-16.0); MEAN CELL VOLUME 112.4 fl (81.0-99.0); MEAN CORPUSCULAR HGB 33.3 pg (27.0-31.0); MEAN CORPUSCULAR HGB CONC 29.7 g/dl (33.0-37.0); MEAN PLATELET VOLUME 11.5 fl (9.6-12.3); NUCLEATED RED BLOOD CELL 0.7 % (0.0-0.0); PLATELET COUNT AUTOMATED 169 10*3/uL (130-400); RED BLOOD COUNT 2.91 10*6/uL (4.10-5.10); RED CELL DISTRI WIDTH 16.8 % (0-14.5); WHITE BLOOD COUNT 4.3 10*3/uL (4.8-10.8)
[2018-05-12 07:12] LABS: ALBUMIN 3.4 gm/dl (3.1-4.5); CREATININE 4.51 mg/dL (0.55-1.02); POTASSIUM 4.1 mmol/L (3.5-5.1); TOTAL PROTEIN 6.6 gm/dL (6.4-8.2)
[2018-05-12 08:00] VITALS: BP 146/60; BP 150/94
[2018-05-12 08:06] LABS: BASOPHILS 3 % (0-1); PLATELET SUFFICIENCY NORMAL (NORMAL); POLYCHROMASIA SLIGHT; TOTAL CELLS COUNTED 100 #CELLS
[2018-05-12 12:00] VITALS: BP 110/57
[2018-05-12 16:00] VITALS: BP 149/79
[2018-05-12 20:00] VITALS: BP 122/74
[2018-05-13] VITALS: BP 141/83
[2018-05-13 06:54] LABS: ALBUMIN 3.1 gm/dl (3.1-4.5); CREATININE 5.57 mg/dL (0.55-1.02); PHOSPHOROUS 3.6 mg/dL (2.5-4.9)
[2018-05-13 07:02] LABS: HEMATOCRIT 30.4 % (37.0-47.0); HEMOGLOBIN 9.2 g/dl (12.0-16.0); MEAN CELL VOLUME 110.9 fl (81.0-99.0); MEAN CORPUSCULAR HGB 33.6 pg (27.0-31.0); MEAN CORPUSCULAR HGB CONC 30.3 g/dl (33.0-37.0); MEAN PLATELET VOLUME 11.6 fl (9.6-12.3); NUCLEATED RED BLOOD CELL 0.1 10*3/uL (0.0-0.0); NUCLEATED RED BLOOD CELL 1.1 % (0.0-0.0); PLATELET COUNT AUTOMATED 151 10*3/uL (130-400); RED BLOOD COUNT 2.74 10*6/uL (4.10-5.10); RED CELL DISTRI WIDTH 17.2 % (0-14.5); WHITE BLOOD COUNT 4.7 10*3/uL (4.8-10.8)
[2018-05-13 07:03] LABS: POTASSIUM 4.4 mmol/L (3.5-5.1)
[2018-05-13 07:44] LABS: ACANTHOCYTES FEW; BASOPHILS 2 % (0-1); PLATELET SUFFICIENCY NORMAL (NORMAL); POLYCHROMASIA MODERATE; TOTAL CELLS COUNTED 100 #CELLS
[2018-05-13 08:00] VITALS: BP 149/65
[2018-05-13 16:00] VITALS: BP 125/68
[2018-05-13 20:00] VITALS: BP 122/41
[2018-05-14] VITALS: BP 121/63
[2018-05-14 07:31] LABS: CREATININE 3.89 mg/dL (0.55-1.02); POTASSIUM 4.4 mmol/L (3.5-5.1)
[2018-05-14 07:49] LABS: HEMATOCRIT 31.2 % (37.0-47.0); HEMOGLOBIN 9.3 g/dl (12.0-16.0); MEAN CELL VOLUME 113.5 fl (81.0-99.0); MEAN CORPUSCULAR HGB 33.8 pg (27.0-31.0); MEAN CORPUSCULAR HGB CONC 29.8 g/dl (33.0-37.0); MEAN PLATELET VOLUME 11.6 fl (9.6-12.3); NUCLEATED RED BLOOD CELL 0.9 % (0.0-0.0); PLATELET COUNT AUTOMATED 156 10*3/uL (130-400); RED BLOOD COUNT 2.75 10*6/uL (4.10-5.10); RED CELL DISTRI WIDTH 17.6 % (0-14.5); WHITE BLOOD COUNT 4.5 10*3/uL (4.8-10.8)
[2018-05-14 08:00] VITALS: BP 137/76
[2018-05-14 08:06] LABS: BASOPHILS 2 % (0-1); TOTAL CELLS COUNTED 100 #CELLS
[2018-05-14 08:07] LABS: PLATELET SUFFICIENCY NORMAL (NORMAL); POLYCHROMASIA SLIGHT
[2018-05-14 12:00] VITALS: BP 96/48
[2018-05-14 20:00] VITALS: BP 124/66
[2018-05-15 08:17] LABS: CREATININE 5.1 mg/dL (0.55-1.02); POTASSIUM 4.3 mmol/L (3.5-5.1)
[2018-05-15 12:00] VITALS: BP 147/67
[2018-05-15 13:06] VITALS: BP 150/77
[2018-05-15] MEDS ORDERED: CEFAZOLIN2 GM/20 M1 IV ×2 (14:33→14:45)
[2018-05-15 16:00] VITALS: BP 136/56
[2018-05-15 20:00] VITALS: BP 121/52
[2018-05-16] VITALS: BP 106/56
[2018-05-16 08:00] VITALS: BP 140/60
[2018-05-16 12:00] VITALS: BP 132/58
[2018-05-16] MEDS ORDERED: FUROSEMIDE40 MG PO (13:58)
[2018-05-16 16:00] VITALS: BP 124/64
[2018-05-16 20:00] VITALS: BP 123/74
[2018-05-17] VITALS: BP 132/63
[2018-05-17 06:17] LABS: CREATININE 5.12 mg/dL (0.55-1.02); POTASSIUM 4.3 mmol/L (3.5-5.1)
[2018-05-17 06:18] LABS: HEMATOCRIT 29.2 % (37.0-47.0); HEMOGLOBIN 8.9 g/dl (12.0-16.0); MEAN CORPUSCULAR HGB 33.8 pg (27.0-31.0); MEAN CORPUSCULAR HGB CONC 30.5 g/dl (33.0-37.0); MEAN PLATELET VOLUME 11.6 fl (9.6-12.3); PLATELET COUNT AUTOMATED 147 10*3/uL (130-400); RED BLOOD COUNT 2.63 10*6/uL (4.10-5.10); WHITE BLOOD COUNT 4.9 10*3/uL (4.8-10.8)
[2018-05-17 08:00] VITALS: BP 121/49
[2018-05-17 08:03] LABS: PLATELET SUFFICIENCY NORMAL (NORMAL); POLYCHROMASIA SLIGHT; TOTAL CELLS COUNTED 100 #CELLS
[2018-05-17 12:00] VITALS: BP 145/73
[2018-05-17 16:00] VITALS: BP 131/68
[2018-05-17 20:00] VITALS: BP 110/62; BP 99/50
[2018-05-18] VITALS: BP 98/46
[2018-05-18 07:31] LABS: CREATININE 3.46 mg/dL (0.55-1.02)
[2018-05-18 07:38] LABS: HEMOGLOBIN 9.1 g/dl (12.0-16.0); MEAN CELL VOLUME 110.7 fl (81.0-99.0); MEAN CORPUSCULAR HGB 33.6 pg (27.0-31.0); MEAN CORPUSCULAR HGB CONC 30.3 g/dl (33.0-37.0); MEAN PLATELET VOLUME 11.1 fl (9.6-12.3); PLATELET COUNT AUTOMATED 150 10*3/uL (130-400); RED BLOOD COUNT 2.71 10*6/uL (4.10-5.10); RED CELL DISTRI WIDTH 18.2 % (0-14.5); WHITE BLOOD COUNT 4.3 10*3/uL (4.8-10.8)
[2018-05-18 08:00] VITALS: BP 149/82
[2018-05-18 08:11] LABS: BASOPHILS 2 % (0-1); PLATELET SUFFICIENCY NORMAL (NORMAL); POLYCHROMASIA SLIGHT; TOTAL CELLS COUNTED 100 #CELLS
[2018-05-18 12:00] VITALS: BP 96/65
[2018-05-18 16:00] VITALS: BP 125/67
[2018-05-18 20:00] VITALS: BP 121/55
[2018-05-19] VITALS: BP 116/51
[2018-05-19 08:00] VITALS: BP 124/58
[2018-05-19 12:00] VITALS: BP 111/52
[2018-05-19 16:00] VITALS: BP 125/64; BP 150/78
[2018-05-19 20:00] VITALS: BP 123/59
[2018-05-20] VITALS: BP 96/77
[2018-05-20 06:47] LABS: HEMATOCRIT 29.1 % (37.0-47.0); HEMOGLOBIN 8.8 g/dl (12.0-16.0); MEAN CORPUSCULAR HGB CONC 30.2 g/dl (33.0-37.0); MEAN PLATELET VOLUME 11.7 fl (9.6-12.3); PLATELET COUNT AUTOMATED 173 10*3/uL (130-400); RED BLOOD COUNT 2.67 10*6/uL (4.10-5.10); RED CELL DISTRI WIDTH 17.6 % (0-14.5); WHITE BLOOD COUNT 5.5 10*3/uL (4.8-10.8)
[2018-05-20 07:01] LABS: CREATININE 6.21 mg/dL (0.55-1.02); POTASSIUM 3.9 mmol/L (3.5-5.1)
[2018-05-20 07:19] LABS: BASOPHILS 1 % (0-1); SCHISTOCYTES FEW; TOTAL CELLS COUNTED 100 #CELLS
[2018-05-20 07:22] LABS: OVALOCYTES FEW
[2018-05-20 07:23] LABS: PLATELET SUFFICIENCY NORMAL (NORMAL); POLYCHROMASIA SLIGHT; SPHEROCYTES FEW
[2018-05-20 08:00] VITALS: BP 135/74
[2018-05-20 12:00] VITALS: BP 114/78
[2018-05-20 16:00] VITALS: BP 102/30; BP 123/78
[2018-05-20 20:00] VITALS: BP 120/75
[2018-05-21] VITALS: BP 120/55
[2018-05-21 08:00] VITALS: BP 138/52
[2018-05-21 12:00] VITALS: BP 106/49
[2018-05-25] MEDS ORDERED: LASIX40 MG PO (10:55)
== END 2018-05-21 12:57 | disposition home or self-care (01) | DRG 291 ==
LOC: ED 09:16 → 4E 11:23 → EDHOLD 11:23 → 4E 11:39
PROVIDERS: Internal Medicine; Nurse Practitioner Family; Student in an Organized Health Care Education/Training Program
PROC: BD1BYZZ Fluoroscopy of Mouth/Oropharynx using Other Contrast (ICD-10-PCS; principal; 2018-05-08)
PROC: 5A1D70Z Performance of Urinary Filtration, Intermittent, Less than 6 Hours Per Day (ICD-10-PCS; 2018-05-08)
PROC: 5A1D70Z Performance of Urinary Filtration, Intermittent, Less than 6 Hours Per Day (ICD-10-PCS; 2018-05-10)
PROC: 5A1D70Z Performance of Urinary Filtration, Intermittent, Less than 6 Hours Per Day (ICD-10-PCS; 2018-05-15)
PROC: 5A1D70Z Performance of Urinary Filtration, Intermittent, Less than 6 Hours Per Day (ICD-10-PCS; 2018-05-20)
DX: I13.2 Hypertensive heart and chronic kidney disease with heart failure and with stage 5 chronic kidney disease, or end stage renal disease (principal); N18.6 End stage renal disease; I50.33 Acute on chronic diastolic (congestive) heart failure; E44.0 Moderate protein-calorie malnutrition; J44.0 Chronic obstructive pulmonary disease with (acute) lower respiratory infection; R73.9 Hyperglycemia, unspecified; E03.9 Hypothyroidism, unspecified; I48.0 Paroxysmal atrial fibrillation; I15.0 Renovascular hypertension; J44.9 Chronic obstructive pulmonary disease, unspecified; R74.0 Nonspecific elevation of levels of transaminase and lactic acid dehydrogenase [LDH]; E83.41 Hypermagnesemia; Y95 Nosocomial condition; D64.9 Anemia, unspecified; E66.3 Overweight; E78.5 Hyperlipidemia, unspecified; G89.29 Other chronic pain; I25.10 Atherosclerotic heart disease of native coronary artery without angina pectoris; K57.90 Diverticulosis of intestine, part unspecified, without perforation or abscess without bleeding; Z99.2 Dependence on renal dialysis; I25.2 Old myocardial infarction; Z86.73 Personal history of transient ischemic attack (TIA), and cerebral infarction without residual deficits; Z88.0 Allergy status to penicillin; Z88.8 Allergy status to other drugs, medicaments and biological substances; Z91.041 Radiographic dye allergy status; Z90.49 Acquired absence of other specified parts of digestive tract; Z82.49 Family history of ischemic heart disease and other diseases of the circulatory system; Z87.19 Personal history of other diseases of the digestive system; Z82.5 Family history of asthma and other chronic lower respiratory diseases; Z83.49 Family history of other endocrine, nutritional and metabolic diseases; Z83.3 Family history of diabetes mellitus; Z68.22 Body mass index [BMI] 22.0-22.9, adult; Z79.899 Other long term (current) drug therapy

== ENCOUNTER 2018-06-02 08:17 | Inpatient (IN) | payer OTHER, MEDICAID ==
[2018-06-02] VITALS (7 sets, daily range): BP systolic 126–149; BP diastolic 63–80
[~2018-06-02] VITALS: Ht 124.5 cm; Wt 50.4 kg
--- NOTE | ~2018-06-02 | EKG ---
[place], [place] ELECTROCARDIOGRAM REPORT NAME: STEWART VELARDE UNIT #: [id number] ROOM: [facility] DOCTOR: GINGER DRAFT REPORT BIRTHDATE: [birth year] [facility] Test Date: 2018-06-02 Test Time: 11:40:11 Pat Name: STEWART VELARDE Department: Room: [facility] Gender: F Direct Care Worker: : 1940 Requested By: YOSSI YOU Order Number: [id number] Reading MD: Measurements Intervals [place] Rate: 90 P: [place]: QRS: 92 QRSD: 95 T: 83 QT: 402 QTc: 492 Interpretive Statements Atrial fibrillation Right axis deviation Anteroseptal infarct, old Nonspecific T abnormalities, lateral leads Compared to ECG 05/25/2018 12:24:13 Myocardial infarct finding now present T-wave abnormality now present Prolonged QT interval no longer present CM:EKGRPT:ELECTROCARDIOGRAM REPORT 1140 0842 YOSIS OSPINA DRAFT REPORT YOSSI YOU DO
--- NOTE | ~2018-06-02 | EKG ---
[place], [place] ELECTROCARDIOGRAM REPORT NAME: STEWART VELARDE UNIT #: [id number] ROOM: 420 DOCTOR: GINGER DRAFT REPORT BIRTHDATE: [birth year] [facility] Test Date: 2018-06-02 Test Time: 13:56:44 Pat Name: STEWART VELARDE Department: Room: 420 1 Gender: F Drafting Supervisor: RENEE : 1940 Requested By: YOSSI YOU Order Number: [id number] Reading MD: Measurements Intervals [place] Rate: 90 P: GA: QRS: 93 QRSD: 93 T: 63 QT: 416 QTc: 509 Interpretive Statements Atrial fibrillation Right axis deviation Prolonged QT interval Compared to ECG 05/25/2018 12:24:13 No significant changes CM:EKGRPT:ELECTROCARDIOGRAM REPORT 1356 1057 YOSSI OSPINA DRAFT REPORT YOSSI YOU DO
--- NOTE | ~2018-06-02 | EKG ---
[place], [place] ELECTROCARDIOGRAM REPORT NAME: STEWART VELARDE UNIT #: [id number] ROOM: DOCTOR: EPIPHANY DRAFT REPORT BIRTHDATE: [birth year] [facility] Test Date: 2018-06-02 Test Time: 08:24:16 Pat Name: STEWART VELARDE Department: Room: Gender: F Safety And Health Consultant: : 1940 Requested By: YOSSI YOU Order Number: [id number] Reading MD: Measurements Intervals [place] Rate: 100 P: MD: QRS: 99 QRSD: 97 T: 63 QT: 376 QTc: 485 Interpretive Statements Atrial fibrillation Right axis deviation Borderline T wave abnormalities Compared to ECG 05/25/2018 12:24:13 T-wave abnormality now present Prolonged QT interval no longer present CM:EKGRPT:ELECTROCARDIOGRAM REPORT 0824 0526 YOSSI OSPINA DRAFT REPORT YOSSI YOU DO
[~2018-06-02 08:17] MED LIST changes: +CEFAZOLIN2 GM/20 M1 IV; +FUROSEMIDE40 MG PO; +Ipratropium Brom3 ML INH; +KEPPRA100 MG/1 M PO; +LASIX40 MG PO; +LEVETIRACE100 MG/1 M PO; +Lopressor25 MG PO; +XANAX0.25 MG PO
[2018-06-02 08:37] LABS: BASO % 0.9 % (0.0-1.0); EOS # 0.1 10*3/uL (0.0-0.4); EOS % 1.9 % (1.0-4.0); HEMOGLOBIN 9.2 g/dl (12.0-16.0); LYMPH # 0.7 10*3/uL (1.3-4.4); LYMPH % 14.9 % (27.0-41.0); MEAN CELL VOLUME 104.5 fl (81.0-99.0); MEAN CORPUSCULAR HGB 32.1 pg (27.0-31.0); MEAN CORPUSCULAR HGB CONC 30.7 g/dl (33.0-37.0); MEAN PLATELET VOLUME 11.6 fl (9.6-12.3); MONO # 0.4 10*3/uL (0.1-1.0); MONO % 8.8 % (3.0-9.0); NEUT # 3.4 10*3/uL (2.3-7.9); NEUT % 73.3 % (47.0-73.0); PLATELET COUNT AUTOMATED 202 10*3/uL (130-400); RED BLOOD COUNT 2.87 10*6/uL (4.10-5.10); RED CELL DISTRI WIDTH 18.7 % (0-14.5); WHITE BLOOD COUNT 4.6 10*3/uL (4.8-10.8)
[2018-06-02 08:46] LABS: ACT PARTIAL THROMBO TIME 22.7 SECONDS (20.8-31.5)
[2018-06-02 09:00] LABS: BILIRUBIN NEGATIVE (NEGATIVE); BLOOD 1+ (NEGATIVE); CLARITY SL CLOUDY (CLEAR); COLOR YELLOW (YELLOW); GLUCOSE TRACE (NEGATIVE); KETONE NEGATIVE (NEGATIVE); LEUKO ESTERASE TRACE (NEGATIVE); NITRITE NEGATIVE (NEGATIVE); PH 8.5 (5.0-9.0); UROBILINOGEN 0.2 E.U./dl (0.2-1.0)
[2018-06-02 09:20] LABS: BACTERIA TRACE; EPITHELIAL CELLS 30-40; WBC 21-30 wbc/hpf (0-5)
[2018-06-02 09:59] LABS: ALBUMIN 3.7 gm/dl (3.1-4.5); CREATININE 4.62 mg/dL (0.55-1.02); POTASSIUM 5.2 mmol/L (3.5-5.1); TOTAL PROTEIN 7.4 gm/dL (6.4-8.2); TROPONIN I 0.023 ng/ml (<0.045)
== END 2018-06-02 16:35 | disposition home health service (06) | DRG 205 ==
LOC: ED 08:17 → EDHOLD 11:08 → 4E 11:22
PROVIDERS: Emergency Medicine
DX: M94.0 Chondrocostal junction syndrome [Tietze] (principal); N18.6 End stage renal disease; I50.32 Chronic diastolic (congestive) heart failure; I13.2 Hypertensive heart and chronic kidney disease with heart failure and with stage 5 chronic kidney disease, or end stage renal disease; D72.810 Lymphocytopenia; D53.9 Nutritional anemia, unspecified; E87.5 Hyperkalemia; E83.41 Hypermagnesemia; R74.0 Nonspecific elevation of levels of transaminase and lactic acid dehydrogenase [LDH]; R74.8 Abnormal levels of other serum enzymes; N28.1 Cyst of kidney, acquired; R30.0 Dysuria; R00.0 Tachycardia, unspecified; R31.9 Hematuria, unspecified; E03.9 Hypothyroidism, unspecified; K21.9 Gastro-esophageal reflux disease without esophagitis; R79.89 Other specified abnormal findings of blood chemistry; R80.9 Proteinuria, unspecified; J44.9 Chronic obstructive pulmonary disease, unspecified; E66.09 Other obesity due to excess calories; Z96.642 Presence of left artificial hip joint; K57.90 Diverticulosis of intestine, part unspecified, without perforation or abscess without bleeding; I48.0 Paroxysmal atrial fibrillation; I25.119 Atherosclerotic heart disease of native coronary artery with unspecified angina pectoris; Z99.2 Dependence on renal dialysis; Z72.0 Tobacco use; I25.2 Old myocardial infarction; Z95.5 Presence of coronary angioplasty implant and graft; Z86.73 Personal history of transient ischemic attack (TIA), and cerebral infarction without residual deficits; Z87.01 Personal history of pneumonia (recurrent); Z88.6 Allergy status to analgesic agent; Z88.0 Allergy status to penicillin; Z88.8 Allergy status to other drugs, medicaments and biological substances; Z91.048 Other nonmedicinal substance allergy status; Z91.81 History of falling; Z87.440 Personal history of urinary (tract) infections; Z90.49 Acquired absence of other specified parts of digestive tract; Z82.49 Family history of ischemic heart disease and other diseases of the circulatory system; Z83.3 Family history of diabetes mellitus; Z84.1 Family history of disorders of kidney and ureter; Z82.5 Family history of asthma and other chronic lower respiratory diseases; Z83.49 Family history of other endocrine, nutritional and metabolic diseases; Z79.899 Other long term (current) drug therapy; Z68.32 Body mass index [BMI] 32.0-32.9, adult

== ENCOUNTER 2018-06-21 09:52 | Inpatient (IN) | payer OTHER, MEDICAID ==
[~2018-06-21] VITALS: Ht 152.4 cm; Wt 51.5 kg
--- NOTE | ~2018-06-21 | EKG ---
[place], [place] ELECTROCARDIOGRAM REPORT NAME: STEWART VELARDE UNIT #: [id number] ROOM: [facility] DOCTOR: GINGER DRAFT REPORT BIRTHDATE: [birth year] [facility] Test Date: 2018-06-21 Test Time: 10:05:33 Pat Name: STEWART VELARDE Department: Room: [facility] Gender: F Galley Boy: Nan Vieyra : 1940 Requested By: ЮЛИЯ BATISTA Order Number: [id number] Reading MD: Da Shepherd MD Measurements Intervals [place] Rate: 46 P: 75 NC: 193 QRS: 102 QRSD: 101 T: 69 QT: 606 QTc: 531 Interpretive Statements Sinus bradycardia Probable right ventricular hypertrophy Prolonged QT interval Compared to ECG 06/02/2018 13:56:44 Atrial fibrillation no longer present Right-axis deviation no longer present Electronically Signed On 06-24-2018 5:28:43 PST by Da Shepherd MD CM:EKGRPT:ELECTROCARDIOGRAM REPORT 1005 0528 ЮЛИЯ BATISTA EPIPHANY DRAFT REPORT ЮЛИЯ BATISTA
--- NOTE | ~2018-06-21 | CON ---
[place], [place] REPORT OF CONSULTATION NAME: STEWART VELARDE [facility] #: [id number] UNIT #: [id number] ROOM: 507 DOCTOR: RONDA KNOWLES MD BIRTHDATE: [birth year] DOS: 06/21/2018 NEPHROLOGY CONSULTATION REASON FOR CONSULTATION: Management of dialysis/patient known to you. HISTORY OF PRESENT ILLNESS: This is a 78-year-old female. She has a past medical history of end-stage renal disease, on hemodialysis Saturday, and Saturday through an upper extremity AV fistula. She dialyzes at [facility] in the care of our practice. She is a poor historian at baseline. The patient has been on dialysis for approximately 5 years. She gives a history of anemia and CVA, hypertension, atrial fibrillation. She went to dialysis today and was not feeling well. Apparently, she became hypotensive and had been complaining apparently of nausea and some abdominal pain. These symptoms have been ongoing for some time now according to the notes. The dialysis unit called to notify me they were sending her to the ER. She was admitted for further evaluation. She was started on some IV fluids. The patient was lying in bed when I saw her. She only nodded her head to some questions. She was not answering questions. In general, she has always been somewhat of a poor historian. The patient unfortunately has a lactic acid that was elevated. It seems initially it was 5.8, but on repeat was even higher at 7.7. I do note that there were plans to get a CAT scan. Her potassium was 5.4. ALLERGIES: LISTED TO PENICILLIN, TAPE, IRON, MEPERIDINE, MORPHINE, NUBAIN. MEDICATIONS: Reviewed in the patient's medical chart. PAST MEDICAL HISTORY: 1. End-stage renal disease, on hemodialysis Saturday, and Saturday as stated above. 2. Upper extremity fistula. 3. Coronary artery disease with a history of PCI. 4. Hypertension. 5. Hypothyroidism. 6. Anemia of chronic disease. 7. Atrial fibrillation. 8. COPD. 9. History of GI bleed. 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 11. Cardiac catheterization. 12. Hip replacement. 13. Cholecystectomy. 14. Hysterectomy. FAMILY HISTORY: Negative for chronic kidney disease, otherwise noncontributory. SOCIAL HISTORY: No current tobacco, alcohol or illicit drugs. REVIEW OF SYSTEMS: As per HPI, otherwise, a 10-point review of systems was reviewed and was negative or limited. [place], [place] REPORT OF CONSULTATION NAME: STEWART VELARDE UNIT #: [id number] ROOM: 50 DOCTOR: RONDA KNOWLES MD BIRTHDATE: [birth year] PHYSICAL EXAMINATION: VITAL SIGNS: Temperature afebrile, pulse 89, respiratory rate 16, blood pressure 93/51. GENERAL: She is lying in bed, comfortable, in no acute distress. HEENT: Shows no JVD. Sclerae are anicteric. Mucous membranes appeared somewhat dry. Pharynx was clear. NECK: Supple. Trachea was midline. There is no neck lymphadenopathy or thyromegaly. LUNGS: Had diminished breath sounds with no wheeze. There is no tactile fremitus. She is not using accessory muscles of respiration. HEART: S1, S2. No rub, thrill or gallop. ABDOMEN: Soft, nontender to mild palpation. I could not appreciate organomegaly. EXTREMITIES: Had no edema. There is no lower extremity lymphadenopathy. Distal pulses are present. SKIN: Showed an overt rash. There was no petechia or purpura. Skin temperature warm. NEUROLOGIC: She was somewhat lethargic, she was nodding head to questions, she was moving in bed. Full neurological exam otherwise was limited. LABORATORY DATA: Hemoglobin 11.7, white count of 5.4, platelets of 129, BUN 27, creatinine 5.0, sodium 143, potassium 5.4, CO2 of 24, calcium 8.5, albumin 3.3, lactic acid 7.7. IMPRESSION: 1. End-stage renal disease, on hemodialysis Saturday, and Saturday through an upper extremity AV fistula. 2. Hypotension, unclear etiology. 3. Nausea and vomiting, abdominal pain. 4. Lactic acidosis. 5. Anemia of chronic disease. 6. History of atrial fibrillation. PLAN: 1. Fluids for now. Watch her volume status carefully. 2. Dose meds for end-stage renal disease. 3. In view of the patient's elevated potassium and lactic acid, we will need to move forward with dialysis today with no fluid removal. For the holiday schedule will be planned for dialysis on Saturday as well. 4. Would discontinue lisinopril. 5. Await CAT scan. Continue to trend lactic acid levels. Her rising lactic acid is concerning. If this does continue to trend upwards, she will need a surgery evaluation. Thank you for this consultation. We will follow with you. [place], [place] REPORT OF CONSULTATION NAME: STEWART VELARDE UNIT #: [id number] ROOM: 507 DOCTOR: RONDA KNOWLES MD BIRTHDATE: [birth year] RONDA KNOWLES MD CM:CONSTR:REPORT OF CONSULTATION 1529 06/21/18 1549 interface
--- NOTE | ~2018-06-21 | EKG ---
[place], [place] ELECTROCARDIOGRAM REPORT NAME: STEWART VELARDE UNIT #: [id number] ROOM: [facility] DOCTOR: GINGER DRAFT REPORT BIRTHDATE: [birth year] [facility] Test Date: 2018-06-22 Test Time: 04:48:30 Pat Name: STEWART VELARDE Department: Room: [place] [address] Gender: F Dock Supervisor: EN : 1940 Requested By: TRACI LOZOYA Order Number: [id number] Reading MD: Da Shepherd MD Measurements Intervals [place] Rate: 66 P: 62 RI: 158 QRS: 97 QRSD: 168 T: -15 QT: 533 QTc: 559 Interpretive Statements Sinus rhythm RBBB and LPFB Anterior infarct, age indeterminate Compared to ECG 06/02/2018 13:56:44 Left posterior fascicular block now present Right bundle-branch block now present Myocardial infarct finding now present Atrial fibrillation no longer present Right-axis deviation no longer present Prolonged QT interval no longer present Electronically Signed On 06-24-2018 5:29:42 PST by Da Shepherd MD CM:EKGRPT:ELECTROCARDIOGRAM REPORT 0448 0529 TRACI OSPINA DRAFT REPORT TRACI LOZOYA DO
[2018-06-21 10:04] VITALS: BP 100/52; BP 77/41
[2018-06-21 10:45] LABS: ACT PARTIAL THROMBO TIME 21.5 SECONDS (20.8-31.5); INTERNATIONAL NORM RATIO 1.2 (2.0-3.5)
[2018-06-21 10:56] LABS: ALBUMIN 3.3 gm/dl (3.1-4.5); CREATININE 5.04 mg/dL (0.55-1.02); POTASSIUM 5.4 mmol/L (3.5-5.1); TOTAL PROTEIN 6.8 gm/dL (6.4-8.2); TROPONIN I 0.036 ng/ml (<0.045)
[2018-06-21 10:59] LABS: BASO # 0.1 10*3/uL (0.0-0.1); BASO % 0.9 % (0.0-1.0); EOS % 0.4 % (1.0-4.0); HEMATOCRIT 39.7 % (37.0-47.0); HEMOGLOBIN 11.7 g/dl (12.0-16.0); LYMPH # 0.9 10*3/uL (1.3-4.4); MEAN CELL VOLUME 107.6 fl (81.0-99.0); MEAN CORPUSCULAR HGB 31.7 pg (27.0-31.0); MEAN CORPUSCULAR HGB CONC 29.5 g/dl (33.0-37.0); MEAN PLATELET VOLUME 12.3 fl (9.6-12.3); MONO # 0.7 10*3/uL (0.1-1.0); MONO % 12.7 % (3.0-9.0); NEUT # 3.8 10*3/uL (2.3-7.9); NEUT % 69.6 % (47.0-73.0); NUCLEATED RED BLOOD CELL 0.1 10*3/uL (0.0-0.0); NUCLEATED RED BLOOD CELL 0.9 % (0.0-0.0); PLATELET COUNT AUTOMATED 129 10*3/uL (130-400); RED BLOOD COUNT 3.69 10*6/uL (4.10-5.10); RED CELL DISTRI WIDTH 18.3 % (0-14.5); WHITE BLOOD COUNT 5.4 10*3/uL (4.8-10.8)
[2018-06-21 11:07] VITALS: BP 85/41
[2018-06-21 12:00] VITALS: BP 93/51; BP 93/52
[2018-06-21] MEDS ORDERED: CYCLOBENZAPRINE5 M3 PO (13:38)
[2018-06-21] MEDS ORDERED: Motrin,Rufen800 MG PO (13:39)
[2018-06-21] MEDS ORDERED: LIPITOR40 MG PO (13:43)
[2018-06-21] MEDS ORDERED: NITROBID PO (14:07)
[2018-06-21 16:00] VITALS: BP 112/57
[2018-06-21 17:29] LABS: ALBUMIN 3.2 gm/dl (3.1-4.5); CREATININE 5.4 mg/dL (0.55-1.02); POTASSIUM 5.6 mmol/L (3.5-5.1); TOTAL PROTEIN 6.2 gm/dL (6.4-8.2)
[2018-06-21 20:00] VITALS: BP 119/57
[2018-06-22] VITALS: BP 90/50
[2018-06-22 04:00] VITALS: BP 202/94
[2018-06-22 04:07] LABS: HEMOGLOBIN 9.8 g/dl (12.0-16.0); MEAN CELL VOLUME 109.7 fl (81.0-99.0); MEAN CORPUSCULAR HGB 31.6 pg (27.0-31.0); MEAN CORPUSCULAR HGB CONC 28.8 g/dl (33.0-37.0); MEAN PLATELET VOLUME 12.1 fl (9.6-12.3); NUCLEATED RED BLOOD CELL 0.3 10*3/uL (0.0-0.0); NUCLEATED RED BLOOD CELL 3.2 % (0.0-0.0); RED CELL DISTRI WIDTH 18.4 % (0-14.5); WHITE BLOOD COUNT 8.4 10*3/uL (4.8-10.8)
[2018-06-22 04:08] LABS: PLATELET COUNT AUTOMATED 72 10*3/uL (130-400)
[2018-06-22 04:18] LABS: ABG BASE EXCESS -3.5 mmol/L (-2.0-2.0); ABG HCO3 22.2 mmol/l (22-26); ABG O2 SATURATION 99.3 % (95-97); ARTERIAL BLOOD GAS PCO2 42.7 mmHg (35-45); ARTERIAL BLOOD GAS PH 7.328 (7.35-7.45)
[2018-06-22 04:25] LABS: ALBUMIN 2.5 gm/dl (3.1-4.5); CREATININE 2.73 mg/dL (0.55-1.02); PLATELET SUFFICIENCY LOW (NORMAL); POLYCHROMASIA SLIGHT; TOTAL CELLS COUNTED 100 #CELLS; TOTAL PROTEIN 5.2 gm/dL (6.4-8.2)
[2018-06-22 04:26] LABS: SCHISTOCYTES FEW
[2018-06-22 04:27] LABS: POTASSIUM 3.2 mmol/L (3.5-5.1)
[2018-06-22 04:30] LABS: TROPONIN I 0.21 ng/ml (<0.045)
== END 2018-06-22 10:35 | disposition expired | DRG 312 ==
LOC: ED 09:52 → EDHOLD 11:15 → 5E 11:28 → ICCU 06-22 03:49
PROVIDERS: Internal Medicine; Internal Medicine Nephrology; Nurse Practitioner Family
PROC: 5A1D70Z Performance of Urinary Filtration, Intermittent, Less than 6 Hours Per Day (ICD-10-PCS; principal; 2018-06-21)
PROC: 5A12012 Performance of Cardiac Output, Single, Manual (ICD-10-PCS; 2018-06-22)
PROC: 0BH17EZ Insertion of Endotracheal Airway into Trachea, Via Natural or Artificial Opening (ICD-10-PCS; 2018-06-22)
PROC: 5A1935Z Respiratory Ventilation, Less than 24 Consecutive Hours (ICD-10-PCS; 2018-06-22)
DX: I95.3 Hypotension of hemodialysis (principal); N18.6 End stage renal disease; I50.32 Chronic diastolic (congestive) heart failure; Z66 Do not resuscitate; D69.6 Thrombocytopenia, unspecified; I48.0 Paroxysmal atrial fibrillation; E78.2 Mixed hyperlipidemia; E78.5 Hyperlipidemia, unspecified; E83.41 Hypermagnesemia; I11.0 Hypertensive heart disease with heart failure; E66.9 Obesity, unspecified; E03.9 Hypothyroidism, unspecified; R00.1 Bradycardia, unspecified; Z51.5 Encounter for palliative care; K57.90 Diverticulosis of intestine, part unspecified, without perforation or abscess without bleeding; D63.8 Anemia in other chronic diseases classified elsewhere; Z96.642 Presence of left artificial hip joint; K21.9 Gastro-esophageal reflux disease without esophagitis; J44.9 Chronic obstructive pulmonary disease, unspecified; Z88.8 Allergy status to other drugs, medicaments and biological substances; Z86.73 Personal history of transient ischemic attack (TIA), and cerebral infarction without residual deficits; Z88.0 Allergy status to penicillin; Z90.49 Acquired absence of other specified parts of digestive tract; Z95.5 Presence of coronary angioplasty implant and graft; Z82.49 Family history of ischemic heart disease and other diseases of the circulatory system; Z83.3 Family history of diabetes mellitus; I25.2 Old myocardial infarction; Z99.2 Dependence on renal dialysis; Z79.899 Other long term (current) drug therapy; Z79.51 Long term (current) use of inhaled steroids; Z68.22 Body mass index [BMI] 22.0-22.9, adult